=== PATIENT | female | born 1980 | race Caucasian/White ===

== ENCOUNTER 2023-04-21 08:26 | Outpatient (OUT) | payer BC, SELFPAY ==
[2023-04-21 08:47] LABS: Basophils Absolute Auto 0.1 10^3/uL (0.0-0.1); Basophils Percent Auto 0.9 % (0.2-2.0); Eosinophils Absolute Auto 0.2 10^3/uL (0.0-0.7); Eosinophils Percent Auto 2.9 % (0.9-7.0); Hematocrit 35.5 % (36.0-48.0); Immature Granulocytes Abs Auto 0.03 10^3/uL (0.00-0.03); Immature Granulocytes Pct Auto 0.4 % (0.0-0.5); Lymphocytes Absolute Auto 2.1 10^3/uL (1.2-3.8); Lymphocytes Percent Auto 29.6 % (20.5-60.0); Mean Corpuscular Hemoglobin 24.5 pg (26.7-34.0); Mean Corpuscular Volume 79.1 fL (81.0-99.0); Mean Platelet Volume 10.2 fL (9.5-13.5); Monocytes Absolute Auto 0.5 10^3/uL (0.3-0.8); Monocytes Percent Auto 7.7 % (1.7-12.0); Neutrophils Absolute Auto 4.1 10^3/uL (1.4-6.5); Neutrophils Percent Auto 58.5 % (43.0-75.0); Platelet Count 310 10^3/uL (150-450); Red Blood Count 4.49 10^6/uL (4.20-5.40); Red Cell Distribution Width 16.4 % (11.0-15.0); White Blood Count 6.9 10^3/uL (4.0-11.0)
[2023-04-21 09:32] LABS: Estimated Average Glucose 111 mg/dL; Glycohemoglobin A1C 5.5 % (4.5-6.2)
[2023-04-21 09:42] LABS: Alanine Aminotransferase 25 U/L (14-59); Albumin Globulin Ratio 1.1; Albumin Level 3.5 g/dL (3.4-5.0); Alkaline Phosphatase 75 U/L (46-116); Anion Gap 11.5; Aspartate Amino Transferase 22 U/L (15-37); Bilirubin Total 0.4 mg/dL (0.2-1.0); Calcium 8.6 mg/dL (8.5-10.1); Carbon Dioxide 27.9 mmol/L (21.0-32.0); Chloride 103 mmol/L (98-107); Cholesterol 238 mg/dL (<=200); Estimated GFR (African America >60 (>=60); Estimated GFR (Non-African Ame >60 (>=60); Globulin 3.3 g/dL; Glucose 94 mg/dL (74-106); HDL Cholesterol 60 mg/dL (40-60); Potassium 4.4 mmol/L (3.5-5.1); Sodium 138 mmol/L (136-145); Thyroid Stimulating Hormone 2.476 uIU/mL (0.358-3.740); Total Protein 6.8 g/dL (6.4-8.2); Triglycerides 110 mg/dL (<=150)
== END 2023-04-21 08:27 | disposition home or self-care (01) ==
LOC: LAB 08:31
PROVIDERS: PCP Family Medicine; Visit Provider Physician Assistant
DX: Z30.42 Encounter for surveillance of injectable contraceptive (principal)
CPT/HCPCS: 36415; 80053; 80061; 83036; 84443; 85025

== ENCOUNTER 2023-10-11 09:51 | Outpatient (OUT) | payer BC, SELFPAY ==
--- NOTE | 2023-10-11 09:56 | MM_ITS ---
Patient Name: YULI DAVIS MR#: [id number] : 1980 Exam Date: 10/11/2023 Ordering Doctor: DR Rick Deng . RADIOLOGY REPORT PROCEDURE: MM TOMOSYNTHESIS SCREENING BI COMPARISON: MG MAMM SCREEN 3D CHASIDY CAD, 09/21/2022. INDICATIONS: Screening Calculator Name NCI Breast Cancer Risk Assessment Tool 5 Year Breast Cancer Risk 0.90% Lifetime Breast Cancer Risk 11.70% Personal Breast Cancer No Personal Ovarian Cancer No Treatments None Family Cancers None LOCATION: [facility] BREAST COMPOSITION: Scattered areas fibroglandular density. FINDINGS: DIAGNOSTIC CATEGORY 0--INCOMPLETE: NEED ADDITIONAL IMAGING EVALUATION. Scattered benign-appearing nodules are present. Scattered benign-appearing calcifications are present. Scattered benign-appearing lymph nodes are present. RIGHT BREAST: New angular partially circumscribed 1.1 x 1.7 x 1.8 cm nodule identified in the 6 o'clock mid to posterior right breast. Spot imaging and ultrasound follow-up is recommended for further evaluation. LEFT BREAST: No significant suspicious finding. RECOMMENDATIONS: ADDITIONAL MAMMOGRAPHIC VIEWS REQUIRED: RIGHT BREAST - spot compression ULTRASOUND: RIGHT BREAST PLEASE NOTE: A NORMAL MAMMOGRAM DOES NOT EXCLUDE THE POSSIBILITY OF BREAST CANCER. A CLINICALLY SUSPICIOUS PALPABLE LUMP SHOULD BE BIOPSIED. Dictated by: Avila Vieyra MD on 10/11/2023 at 12:33 Approved by: Avila Vieyra MD on 10/11/2023 at 13:47
--- OUTSIDE RECORDS SUMMARY | 2023-10-11 10:02 | XMS_ITS | CCD ---
Author Organization [facility] Care Team Providers Care Plant Quality Manager Name Role Phone JAIRO ., DR CHAMPAGNE Admitting Unavailable JAIRO ., DR CHAMPAGNE Consulting Unavailable AJIRO ., DR CHAMPAGNE Attending Unavailable VALENTIN, DR GIBSON Primary Care Unavailable AMINA, DR GUERRERO Anaya Consulting Unavailable JAIRO ., DR CHAMPAGNE Admitting Unavailable JAIRO ., DR CHAMPAGNE Consulting Unavailable JAIRO ., DR CHAMPAGNE Attending Unavailable VALENTIN, DR GIBSON Primary Care Unavailable LEYLA FELDER Attending Unavailab le Problems Problem Classification Problem Date Documented Da te Episodic/Chronic Other screening for suspected conditions (not mental disorders or infectious disease) (9 sources) Encounter for screening for malignant neoplasm of cervix; Translations: [Encounter for screening mammogram for malignant neoplasm of breast] Onset: 09-21-2022 Episodic Results Test Name Value Interpretation Reference Range Facility PAP ACOG PANEL 2: 30 to 65on 09-28-2022 . . Normal [facility] Comment on above: Result Comment: Perf ormed at: WB Performed By: #### [id number] #### [facility] [address] [address] [address] Allan Flowers Age Gdln ACOG Testing 30-65 Normal [facility] Comment on above: Performed By: #### 4 [id number] #### [facility] [address] [address] [address] Allan Flowers DIAGNOSIS: Comment Normal [facility] Comment on above: Result Comment: NEGA TIVE FOR INTRAEPITHELIAL LESION OR MALIGNANCY. Performed at: WB Performed By: #### [id number] #### [facility] [address] [address] [address] Allan Flowers HPV Aptima Negative Normal Negative [facility] Comment on above: Result Comment: This nucleic acid amplification test detects fourteen high-risk HPV types (16,18,31,33,35,39,45,51,52,56,58,59,66,68) without differentiation. Performed at: =G Performed By: #### 4 [id number] #### [facility] [address] [place] [address] Dr. Allan Flowers HPV Genotype Reflex Comment Normal [facility] Comment on above: Result Comment: Crit eria not met, HPV Genotype not performed. Performed at: WB Performed By: #### [id number] #### [facility] [address] [place] [address] Dr. Allan Flowers Methodology: Comment Normal [facility] Comment on above: Result Comment: This liquid based ThinPrep(R) pap test was screened with the use of an image guided system. Performed at: WB Performed By: #### [id number] #### [facility] [address] [place] [address] Dr. Allan Flowers Note: Comment Normal [facility] Comment on above: Result Comment: The Pap smear is a screening test designed to aid in the detection of premalignant and malignant conditions of the uterine cervix. It is not a diagnostic procedure and should not be used as the sole means of detecting cervical cancer. Both false-positive and false-negative reports do occur. . Performed at: WB Performed By: #### [id number] #### [facility] [address] [place] [address] Dr. Allan Flowers Performed by: Comment Normal [facility] Comment on above: Result Comment: Jacqueline Hartman, Supervisory Medical Secretary Receptionist (ASCP) Performed at: WB Performed By: #### [id number] #### [facility] [address] [place] [address] Dr. Allan Flowers Specimen adequacy: Comment Normal [facility] Comment on above: Result Comment: Sati sfactory for evaluation. No endocervical component is identified. Performed at: WB Performed By: #### 4 [id number] #### [facility] [address] [place] [address] Dr. Allan Flowers MAMM SCREEN 3D CHASIDY CADon 09-21-2022 MG MAMM SCREEN 3D CHASIDY CAD Patient: YULI DAVIS Exam Date: 09/21/2022 : 1980 Gender:F Ordering : DR MAHI GILL . Admission #: [id number] Family : Order #: [id number] CLICK HERE TO VIEW EXAM RADIOLOGY REPORT PROCEDURE: MAMMOGRAM SCREENING 3D BILATERAL CAD COMPARISON: MG MAMM SCREEN 3D CHASIDY CAD, 10/29/2020. INDICATIONS: Screening mammography Calculator Name NCI Breast Cancer Risk Assessment Tool 5 Year Breast Cancer Risk 0.90% Lifetime Breast Cancer Risk 11.80% Personal Breast Cancer No Personal Ovarian Cancer No Treatments None Family Cancers None LOCATION: [facility] BREAST COMPOSITION: Scattered areas fibroglandular density. FINDINGS: DIAGNOSTIC CATEGORY 2--BENIGN FINDING: RIGHT BREAST: No significant suspicious finding. No significant change has occurred. LEFT BREAST: No significant suspicious finding. No significant change has occurred. RECOMMENDATIONS: ROUTINE MAMMOGRAM AND CLINICAL EVALUATION IN 12 MONTHS. PLEASE NOTE: A NORMAL MAMMOGRAM DOES NOT EXCLUDE THE POSSIBILITY OF BREAST CANCER. A CLINICALLY SUSPICIOUS PALPABLE LUMP SHOULD BE BIOPSIED. Dictated by: Guerrero Wasserman M.D. on 09/22/2022 at 08:27 Approved by: Guerrero Wasserman M.D. on 09/22/2022 at 08:33 Normal [facility] Complete Blood Count with Au to Diffon 12-02-2021 Basophils (Bld) [#/Vol] 0.06 10*3/uL Normal 0.00-0.20 [facility] [employer] Comment on above: Performed By: #### V ITD, TSH reflex FT4, CBCAD, LIPD, CMP #### [facility] [address], [place] [id number] Basophils/100 WBC (Bld) 0.8 % Normal [facility] [employer] Comment on above: Performed By: #### V ITD, TSH reflex FT4, CBCAD, LIPD, CMP #### [facility] [address] [place], [place] [id number] Eosinophils (Bld) [#/Vol] 0.31 10*3/uL Normal 0.02-0.50 [facility] [employer] Comment on above: Performed By: #### V ITD, TSH reflex FT4, CBCAD, LIPD, CMP #### [facility] [address] [place] [address], [place] [id number] Eosinophils/100 WBC (Bld) 4.4 % Normal [facility] Comment on above: Performed By: #### V ITD, TSH reflex FT4, CBCAD, LIPD, CMP #### [facility] [address] [place], [place] [id number] Erythrocyte distribution width (RBC) [Ratio] 13.3 % Normal 11.0-15.0 [facility] Comment on above: Performed By: #### V ITD, TSH reflex FT4, CBCAD, LIPD, CMP #### [facility] [address] [place], [place] [id number] Hematocrit (Bld) [Volume fraction] 36.2 % Normal 35.0-47.0 [facility] Comment on above: Performed By: #### V ITD, TSH reflex FT4, CBCAD, LIPD, CMP #### [facility] [address] [place], [place] [id number] Hemoglobin (Bld) [Mass/Vol] 11.3 g/dL Low 11.6-15.5 [facility] Comment on above: Performed By: #### V ITD, TSH reflex FT4, CBCAD, LIPD, CMP #### [facility] [address] [place], [place] [id number] Lymphocytes (Bld) [#/Vol] 1.8 10*3/uL Normal 0.9-3.9 [facility] Comment on above: Performed By: #### V ITD, TSH reflex FT4, CBCAD, LIPD, CMP #### [facility] [address] [place], [place] [id number] Lymphocytes/100 WBC (Bld) 25.5 % Normal [facility] Comment on above: Performed By: #### V ITD, TSH reflex FT4, CBCAD, LIPD, CMP #### [facility] [address] [place], [place] [id number] MCH (RBC) [Entitic mass] 27.2 pg Normal 27.0-33.0 [facility] Comment on above: Performed By: #### V ITD, TSH reflex FT4, CBCAD, LIPD, CMP #### [facility] [address] [place], [place] [id number] MCHC (RBC) [Mass/Vol] 31.2 g/dL Low 32.0-36.0 [facility] Comment on above: Performed By: #### V ITD, TSH reflex FT4, CBCAD, LIPD, CMP #### [facility] [address] [place], [place] [id number] MCV (RBC) [Entitic vol] 87 fL Normal 80-100 [facility] Comment on above: Performed By: #### V ITD, TSH reflex FT4, CBCAD, LIPD, CMP #### [facility] [address] [place], [place] [id number] Monocytes (Bld) [#/Vol] 0.5 10*3/uL Normal 0.2-0.9 [facility] Comment on above: Performed By: #### V ITD, TSH reflex FT4, CBCAD, LIPD, CMP #### [facility] [address] [place], [place] [id number] Monocytes/100 WBC (Bld) 6.5 % Normal [facility] Comment on above: Performed By: #### V ITD, TSH reflex FT4, CBCAD, LIPD, CMP #### [facility] [address] [place], [place] [id number] Neutrophils (Bld) [#/Vol] 4.4 10*3/uL Normal 1.5-7.8 [facility] Comment on above: Performed By: #### V ITD, TSH reflex FT4, CBCAD, LIPD, CMP #### [facility] [address] [place], [place] [id number] Neutrophils/100 WBC (Bld) 62.4 % Normal [facility] Comment on above: Performed By: #### V ITD, TSH reflex FT4, CBCAD, LIPD, CMP #### [facility] [address] [place], [place] [id number] Platelet mean volume (Bld) [Entitic vol] 11.40 fL Normal 7.50-12.50 [facility] Comment on above: Performed By: #### V ITD, TSH reflex FT4, CBCAD, LIPD, CMP #### [facility] [address] [place], [place] [id number] Platelets (Bld) [#/Vol] 309 10*3/uL Normal 140-400 [facility] Comment on above: Performed By: #### V ITD, TSH reflex FT4, CBCAD, LIPD, CMP #### [facility] [address] [place], [place] [id number] RBC (Bld) [#/Vol] 4.16 10*6/uL Normal 3.90-5.20 [facility] Comment on above: Performed By: #### V ITD, TSH reflex FT4, CBCAD, LIPD, CMP #### [facility] [address] [place], [place] [id number] RDW-SD 42.5 fL Normal 37.0-50.0 [facility] Comment on above: Performed By: #### V ITD, TSH reflex FT4, CBCAD, LIPD, CMP #### [facility] [address] [place], [place] [id number] WBC (Bld) [#/Vol] 7.1 10*3/uL Normal 3.8-11.0 [facility] Comment on above: Performed By: #### V ITD, TSH reflex FT4, CBCAD, LIPD, CMP #### [facility] [address] [place], [place] [id number] Comprehensive Metabolic Pane [facility] 12-02-2021 Albumin [Mass/Vol] 4.5 g/dL Normal 3.6-5.1 [facility] Comment on above: Performed By: #### V ITD, TSH reflex FT4, CBCAD, LIPD, CMP #### [facility] [address] [place], [place] [id number] Albumin/Globulin [Mass ratio] 2.1 {ratio} Normal 1.0-2.5 [facility] Comment on above: Performed By: #### V ITD, TSH reflex FT4, CBCAD, LIPD, CMP #### [facility] [address] [place], [place] [id number] ALP [Catalytic activity/Vol] 70 U/L Normal 35-119 [facility] Comment on above: Performed By: #### V ITD, TSH reflex FT4, CBCAD, LIPD, CMP #### [facility] [address] [place], [place] [id number] ALT [Catalytic activity/Vol] 15 U/L Normal 6-[address] [facility] Comment on above: Result Comment: 06/03 Female reference range changed. Performed By: #### V ITD, TSH reflex FT4, CBCAD, LIPD, CMP #### [facility] [address] [place], [place] [id number] Anion gap [Moles/Vol] 17 mmol/L Normal 12-[address] [facility] Comment on above: Result Comment: Effe ctive 07/09/2019 reference range changed. Performed By: #### V ITD, TSH reflex FT4, CBCAD, LIPD, CMP #### [facility] [address] [place], [place] [id number] AST [Catalytic activity/Vol] 18 U/L Normal 9-[address] [facility] Comment on above: Performed By: #### V ITD, TSH reflex FT4, CBCAD, LIPD, CMP #### [facility] [address] [place], [place] [id number] BUN/CREA 21 Ratio Normal 6-[address] [facility] Comment on above: Performed By: #### V ITD, TSH reflex FT4, CBCAD, LIPD, CMP #### [facility] [address] [place], [place] [id number] Calcium [Mass/Vol] 9.7 mg/dL Normal 8.6-10.2 [facility] Comment on above: Performed By: #### V ITD, TSH reflex FT4, CBCAD, LIPD, CMP #### [facility] [address] [place], [place] [id number] Chloride [Moles/Vol] 102 mmol/L Normal 98-[address] [facility] Comment on above: Performed By: #### V ITD, TSH reflex FT4, CBCAD, LIPD, CMP #### [facility] [address] [facility] [place] [id number] CO2 [Moles/Vol] 23 mmol/L Normal 20-31 [facility] Comment on above: Performed By: #### V ITD, TSH reflex FT4, CBCAD, LIPD, CMP #### [facility] [address] [place], [place] [id number] Creatinine [Mass/Vol] 0.9 mg/dL Normal 0.6-1.4 [facility] [employer] Comment on above: Performed By: #### V ITD, TSH reflex FT4, CBCAD, LIPD, CMP #### [facility] [address] [place], [place] [id number] eGFRAA 81 mL/min/1.73m2 Normal >60 [facility] [employer] Comment on above: Performed By: #### V ITD, TSH reflex FT4, CBCAD, LIPD, CMP #### [facility] [address] [place], [place] [id number] eGFRNAA 67 mL/min/1.73m2 Normal >60 [facility] [employer] Comment on above: Performed By: #### V ITD, TSH reflex FT4, CBCAD, LIPD, CMP #### [facility] [address] [place], [place] [id number] Globulin (S) [Mass/Vol] 2.1 g/dL Normal 1.9-3.7 [facility] [employer] Comment on above: Performed By: #### V ITD, TSH reflex FT4, CBCAD, LIPD, CMP #### [facility] [address] [place], [place] [id number] Glucose [Mass/Vol] 109 mg/dL High 65-99 [facility] [employer] Comment on above: Result Comment: For FASTING Glucose --- ADA reference ranges: Normal 65-99 mg/dl Prediabetes 100-125 Diabetes >/= 126 Performed By: #### V ITD, TSH reflex FT4, CBCAD, LIPD, CMP #### [facility] [address] [place], [place] [id number] Potassium [Moles/Vol] 4.0 mmol/L Normal 3.5-5.5 [facility] [employer] Comment on above: Performed By: #### V ITD, TSH reflex FT4, CBCAD, LIPD, CMP #### [facility] [address] [place], [place] [id number] Protein [Mass/Vol] 6.6 g/dL Normal 6.1-8.1 [facility] [employer] Comment on above: Performed By: #### V ITD, TSH reflex FT4, CBCAD, LIPD, CMP #### [facility] [address] [place], [place] [id number] Sodium [Moles/Vol] 139 mmol/L Normal 135-146 [place] [employer] Comment on above: Performed By: #### V ITD, TSH reflex FT4, CBCAD, LIPD, CMP #### [facility] [address] [place], [place] [id number] TBIL <0.3 Normal [facility] [employer] Comment on above: Performed By: #### V ITD, TSH reflex FT4, CBCAD, LIPD, CMP #### [facility] [address] [place], [place] [id number] Urea nitrogen [Mass/Vol] 19 mg/dL Normal 7-25 [facility] [employer] Comment on above: Performed By: #### V ITD, TSH reflex FT4, CBCAD, LIPD, CMP #### [facility] [address] [place], [place] [id number] Lipid Panelon 12-02-2021 Cholesterol [Mass/Vol] 223 mg/dL High 125-200 [facility] [employer] Comment on above: Result Comment: Low risk < 200mg/dL Borderline risk 201-239 mg/dl High risk > or equal to 240 Performed By: #### V ITD, TSH reflex FT4, CBCAD, LIPD, CMP #### [facility] [address] [place], [place] [id number] Cholesterol in HDL [Mass/Vol] 61 mg/dL Normal >40 [facility] [employer] Comment on above: Result Comment: High Cardiovascular Risk HDL <40 mg/dL Low Cardiovascular Risk HDL > or equal to 60 mg/dl Performed By: #### V ITD, TSH reflex FT4, CBCAD, LIPD, CMP #### [facility] [address] [place], [place] [id number] Cholesterol in LDL [Mass/Vol] 128 mg/dL Normal [facility] [employer] Comment on above: Result Comment: LDL ATP III CLASSIFICATION LDL less than 100 mg/dl Optimal LDL 100-129 mg/dl Near or above optimal LDL 130-159 Borderline high LDL 160-189 High LDL greater than 189 mg/dl Very High Performed By: #### V ITD, TSH reflex FT4, CBCAD, LIPD, CMP #### [facility] [address] [place], [place] [id number] Cholesterol in VLDL [Mass/Vol] 34 mg/dL Normal [facility] Comment on above: Performed By: #### V ITD, TSH reflex FT4, CBCAD, LIPD, CMP #### [facility] [address] [place], [place] [id number] Cholesterol.total/C holesterol in HDL [Mass ratio] 4 {ratio} Normal [facility] Comment on above: Performed By: #### V ITD, TSH reflex FT4, CBCAD, LIPD, CMP #### [facility] [address] [place], [place] [id number] Triglyceride [Mass/Vol] 171 mg/dL High 30-150 [facility] Comment on above: Result Comment: TRIG ATPIII CLASSIFICATIONS TRIG less than 150 mg/dl Normal TRIG 150-199 mg/dl Borderline High TRIG 200-500 mg/dl High TRIG greather than 500 mg/dl Very High Performed By: #### V ITD, TSH reflex FT4, CBCAD, LIPD, CMP #### [facility] [address] [place], [place] [id number] TSH w/ Reflex to Free T4on 0 12-02-2021 TSH 2.760 uIU/mL Normal 0.400-4.500 [facility] [employer] Comment on above: Performed By: #### V ITD, TSH reflex FT4, CBCAD, LIPD, CMP #### [facility] [address] [place], [place] [id number] Vitamin D 25-OHon 12-02-2021 VIT D 25 OH 56 ng/ml Normal >29 [facility] [employer] Comment on above: Result Comment: Mendy min D Status Deficiency <20 ng/mL Insufficiency 20-29 ng/mL Optimal 30-100 ng/mL Possible Toxicity >=150 ng/mL Performed By: #### V ITD, TSH reflex FT4, CBCAD, LIPD, CMP #### [facility] [address] [place], [place] [id number] Encounters Encounter Date Encounter Type Care Provider Facility Start: 05-17-2023 End: 05-17-2023 ambulatory LEYLA FELDER Not Available Start: 09-21-2022 End: 09-21-[address] MAHI GILL . Facility:[facility] Start: 09-21-2022 End: 09-22-[address] MAHI GILL . Facility:[facility] Payers Date Payer Category Payer Unknown [id number] [id number] [id number] 1980 Unknown [id number] [id number] [id number] 1980 Unknown [id number] 1960 Unknown [id number] Summary Purpose Family History No Family History Records FoundNo Family History Records FoundNo Family History Records Found Advance Directives No Advanced Directives Records FoundNo Advanced Directives Records FoundNo Advanced Directives Records Found Additional Source Comments INFORMATION SOURCE (unrecogn ized section and content) DATE CREATED AUTHOR 12/03/2021 [facility] dical Specialist DATE CREATED AUTHOR AUTHOR'S ORGANIZ ATION 10/01/2022 [facility] DATE CREATED AUTHOR AUTHOR'S ORGANIZ ATION 05/19/2023 [facility] dical Specialists EPIC FOR RECORDS PERTAINING TO PATIENTS WHO ARE OR HAVE BEEN ENROLLED IN A CHEMICAL DEPENDENCY/SUBSTANCEABUSE PROGRAM, SOME INFORMATION MAY BE OMITTED. This clinical summary was aggregated from multiple sources. Caution should be exercised in using it in the provision of clinical care. This summary normalizes information from multiple sources, and as a consequence, information in this document may materially change the coding, format and clinical context of patient data. In addition, data may be omitted in some cases. CLINICAL DECISIONS SHOULD BE BASED ON THE PRIMARY CLINICAL RECORDS. [facility] [employer] provides no warranty or guarantee of the accuracy or completeness of information in this document.
== END 2023-10-11 09:52 | disposition home or self-care (01) ==
LOC: MAMMO 09:52
PROVIDERS: PCP Family Medicine; Visit Provider Obstetrics & Gynecology
DX: Z12.31 Encounter for screening mammogram for malignant neoplasm of breast (principal); N63.15 Unspecified lump in the right breast, overlapping quadrants
CPT/HCPCS: 77063; 77067

== ENCOUNTER 2023-10-26 12:53 | Outpatient (OUT) | payer BC, SELFPAY ==
--- NOTE | 2023-10-26 12:57 | MM_ITS ---
Patient Name: YULI DAVIS MR#: [id number] : 1980 Exam Date: 10/26/2023 Ordering Doctor: DR Rick Deng . RADIOLOGY REPORT PROCEDURE: MM DIAGNOSTIC MAMMO UNILAT RT, 10/26/2023, 12:00 US BREAST RT LIMITED, 10/26/2023, 13:11 COMPARISON: MM TOMOSYNTHESIS SCREENING BI, 10/11/2023. MG MAMM SCREEN 3D CHASIDY CAD, 09/21/2022. MG MAMM SCREEN 3D CHASIDY CAD, 10/29/2020. INDICATIONS: Follow Up Abnormal Mammogram R92.8 Calculator Name NCI Breast Cancer Risk Assessment Tool 5 Year Breast Cancer Risk 0.90% Lifetime Breast Cancer Risk 11.70% Personal Breast Cancer No Personal Ovarian Cancer No Treatments None Family Cancers None LOCATION: [facility] BREAST COMPOSITION: There are scattered areas of fibroglandular density. FINDINGS: DIAGNOSTIC CATEGORY 4--SUSPICIOUS FOR MALIGNANCY. FINDING DOES NOT EXHIBIT CLASSIC FINDINGS OF BREAST CANCER: RIGHT BREAST: Spot magnification views demonstrate persistence of a 1.1 cm mass within the lower central breast approximately 6 o'clock. Ultrasound evaluation demonstrates a geographic shaped 1.6 x 0.6 x 0.6 cm hypoechoic structure with irregular lemus; complex cyst versus mass. Given its appearance on ultrasound and new appearance on mammography ultrasound-guided tissue sampling is recommended. RECOMMENDATIONS: ULTRASOUND-GUIDED CORE BIOPSY: RIGHT BREAST PLEASE NOTE: A NORMAL MAMMOGRAM DOES NOT EXCLUDE THE POSSIBILITY OF BREAST CANCER. A CLINICALLY SUSPICIOUS PALPABLE LUMP SHOULD BE BIOPSIED. Dictated by: Damian Wasserman M.D. on 10/26/2023 at 13:32 Approved by: Damian Wasserman M.D. on 10/26/2023 at 13:39
--- OUTSIDE RECORDS SUMMARY | 2023-10-26 13:19 | XMS_ITS | CCD ---
Author Organization [facility] Care Team Providers Care Mobile Equipment Mechanic Name Role Phone JAIRO ., DR CHAMPAGNE [...] 29 to 64on 09-28-2022 . . Normal [facility] Comment on above: Result Comment: Perf ormed at: WB Performed By: #### [id number] #### [facility] [address] [address] [address] Allan Flowers Age Gdln ACOG Testing 30-65 Normal [facility] Comment on above: Performed By: #### [id number] #### [facility] [address] [address] [address] Allan Flowers DIAGNOSIS: Comment Normal [facility] Comment on above: Result Comment: NEGA TIVE FOR INTRAEPITHELIAL LESION OR MALIGNANCY. Performed at: WB Performed By: #### [id number] #### [facility] [address] [address] [address] Allan Flowers HPV Aptima Negative Normal Negative [facility] Comment on above: Result Comment: This nucleic acid amplification test detects fourteen high-risk HPV types (16,18,31,33,35,39,45,51,52,56,58,59,66,68) without differentiation. Performed at: =G Performed By: #### [id number] #### [facility] [address] [place] [address] Dr. Allan Flowers HPV Genotype Reflex Comment Normal [facility] Comment on above: Result Comment: Crit eria not met, HPV Genotype not performed. Performed at: WB Performed By: #### [id number] #### [facility] [address] [place] [address] Dr. Allan Flowers Methodology: Comment Normal [facility] Comment on above: Result Comment: This liquid based ThinPrep(R) pap test was screened with the use of an image guided system. Performed at: WB Performed By: #### [id number] #### [facility] [address] [place] [address] Dr. Allan Flowers Note: Comment Normal [facility] Comment on above: Result Comment: The Pap smear is a screening test designed to aid in the detection of premalignant and malignant conditions of the uterine cervix. It is not a diagnostic procedure and should not be used as the sole means of detecting cervical cancer. Both false-positive and false-negative reports do occur. . Performed at: WB Performed By: #### [id number] #### [facility] [address] [place] [address] Dr. Allan Flowers Performed by: Comment Normal [facility] Comment on above: Result Comment: Jacqueline Hartman, Supervisory Office Services Associate (ASCP) Performed at: WB Performed By: #### [id number] #### [facility] [address] [place] [address] Dr. Allan Flowers Specimen adequacy: Comment Normal [facility] Comment on above: Result Comment: Sati sfactory for evaluation. No endocervical component is identified. Performed at: WB Performed By: #### [id number] #### [facility] [address] [place] [address] Dr. Allan Flowers MAMM SCREEN 3D CHASIDY CADon 09-21-2022 MG MAMM SCREEN 3D CHASIDY CAD Patient: YULI DAVIS Exam Date: 09/21/2022 : 1980 Gender:F Ordering : DR MAHI GILL . Admission #: [id number] Family : Order #: [id number] CLICK HERE TO VIEW EXAM RADIOLOGY REPORT PROCEDURE: MAMMOGRAM SCREENING 3D BILATERAL CAD COMPARISON: MG MAMM SCREEN 3D CHASIDY CAD, 10/29/2020. INDICATIONS: Screening mammography Calculator Name NCI Breast Cancer Risk Assessment Tool 5 Year Breast Cancer Risk 0.90% Lifetime Breast Cancer Risk 11.80% Personal Breast Cancer No Personal Ovarian Cancer No Treatments None Family Cancers None LOCATION: [facility] BREAST COMPOSITION: Scattered areas fibroglandular density. FINDINGS: [...] M.D. on 09/22/2022 at 08:33 Normal [facility] Complete Blood Count with Au to Diffon 12-02-2021 Basophils (Bld) [#/Vol] 0.06 10*3/uL Normal 0.00-0.20 [facility] Associate Professor [employer] Comment on above: Performed By: #### V ITD, TSH reflex FT4, CBCAD, LIPD, CMP #### [facility] [address], [place] [id number] Basophils/100 WBC (Bld) 0.8 % Normal [facility] Associate Professor [employer] Art Comment on above: Performed By: #### V ITD, TSH reflex FT4, CBCAD, LIPD, CMP #### [facility] [address], [place] [id number] Eosinophils (Bld) [#/Vol] 0.31 10*3/uL Normal 0.02-0.50 [facility] Associate Professor [employer] Art Comment on above: Performed By: #### V ITD, TSH reflex FT4, CBCAD, LIPD, CMP #### [facility] [address], [place] [id number] Eosinophils/100 WBC (Bld) 4.4 % Normal [facility] Comment on above: Performed By: #### V ITD, TSH reflex FT4, CBCAD, LIPD, CMP #### [facility] [address], [place] [id number] Erythrocyte distribution width (RBC) [Ratio] 13.3 % Normal 11.0-15.0 [facility] Comment on above: Performed By: #### V ITD, TSH reflex FT4, CBCAD, LIPD, CMP #### [facility] [address], [place] [id number] Hematocrit (Bld) [Volume fraction] 36.2 % Normal 35.0-47.0 [facility] Comment on above: Performed By: #### V ITD, TSH reflex FT4, CBCAD, LIPD, CMP #### [facility] [address], [place] [id number] Hemoglobin (Bld) [Mass/Vol] 11.3 g/dL Low 11.6-15.5 [facility] Comment on above: Performed By: #### V ITD, TSH reflex FT4, CBCAD, LIPD, CMP #### [facility] [address], [place] [id number] Lymphocytes (Bld) [#/Vol] 1.8 10*3/uL Normal 0.9-3.9 [facility] Comment on above: Performed By: #### V ITD, TSH reflex FT4, CBCAD, LIPD, CMP #### [facility] [address], [place] [id number] Lymphocytes/100 WBC (Bld) 25.5 % Normal [facility] Comment on above: Performed By: #### V ITD, TSH reflex FT4, CBCAD, LIPD, CMP #### [facility] [address], [place] [id number] MCH (RBC) [Entitic mass] 27.2 pg Normal 27.0-33.0 [facility] Comment on above: Performed By: #### V ITD, TSH reflex FT4, CBCAD, LIPD, CMP #### [facility] [address], [place] [id number] MCHC (RBC) [Mass/Vol] 31.2 g/dL Low 32.0-36.0 [facility] Comment on above: Performed By: #### V ITD, TSH reflex FT4, CBCAD, LIPD, CMP #### [facility] [address], [place] [id number] MCV (RBC) [Entitic vol] 87 fL Normal 80-100 [facility] Comment on above: Performed By: #### V ITD, TSH reflex FT4, CBCAD, LIPD, CMP #### [facility] [address], [place] [id number] Monocytes (Bld) [#/Vol] 0.5 10*3/uL Normal 0.2-0.9 [facility] Comment on above: Performed By: #### V ITD, TSH reflex FT4, CBCAD, LIPD, CMP #### [facility] [address], [place] [id number] Monocytes/100 WBC (Bld) 6.5 % Normal [facility] Comment on above: Performed By: #### V ITD, TSH reflex FT4, CBCAD, LIPD, CMP #### [facility] [address], [place] [id number] Neutrophils (Bld) [#/Vol] 4.4 10*3/uL Normal 1.5-7.8 [facility] Comment on above: Performed By: #### V ITD, TSH reflex FT4, CBCAD, LIPD, CMP #### [facility] [address], [place] [id number] Neutrophils/100 WBC (Bld) 62.4 % Normal [facility] Comment on above: Performed By: #### V ITD, TSH reflex FT4, CBCAD, LIPD, CMP #### [facility] [address], [place] [id number] Platelet mean volume (Bld) [Entitic vol] 11.40 fL Normal 7.50-12.50 [facility] Comment on above: Performed By: #### V ITD, TSH reflex FT4, CBCAD, LIPD, CMP #### [facility] [address], [place] [id number] Platelets (Bld) [#/Vol] 309 10*3/uL Normal 140-400 [facility] Comment on above: Performed By: #### V ITD, TSH reflex FT4, CBCAD, LIPD, CMP #### [facility] [address], [place] [id number] RBC (Bld) [#/Vol] 4.16 10*6/uL Normal 3.90-5.20 [facility] Comment on above: Performed By: #### V ITD, TSH reflex FT4, CBCAD, LIPD, CMP #### [facility] [address], [place] [id number] RDW-SD 42.5 fL Normal 37.0-50.0 [facility] Comment on above: Performed By: #### V ITD, TSH reflex FT4, CBCAD, LIPD, CMP #### [facility] [address], [place] [id number] WBC (Bld) [#/Vol] 7.1 10*3/uL Normal 3.8-11.0 [facility] Comment on above: Performed By: #### V ITD, TSH reflex FT4, CBCAD, LIPD, CMP #### [facility] [address], [place] [id number] Comprehensive Metabolic Pane [facility] 12-02-2021 Albumin [Mass/Vol] 4.5 g/dL Normal 3.6-5.1 [facility] Comment on above: Performed By: #### V ITD, TSH reflex FT4, CBCAD, LIPD, CMP #### [facility] [address], [place] [id number] Albumin/Globulin [Mass ratio] 2.1 {ratio} Normal 1.0-2.5 [facility] Comment on above: Performed By: #### V ITD, TSH reflex FT4, CBCAD, LIPD, CMP #### [facility] [address], [place] [id number] ALP [Catalytic activity/Vol] 70 U/L Normal 35-119 [facility] Comment on above: Performed By: #### V ITD, TSH reflex FT4, CBCAD, LIPD, CMP #### [facility] [address], [place] [id number] ALT [Catalytic activity/Vol] 15 U/L Normal 6-33 [facility] Comment on above: Result Comment: 06/03 Female reference range changed. Performed By: #### V ITD, TSH reflex FT4, CBCAD, LIPD, CMP #### [facility] [address], [place] [id number] Anion gap [Moles/Vol] 17 mmol/L Normal 12-20 [facility] Comment on above: Result Comment: Effe ctive 07/09/2019 reference range changed. Performed By: #### V ITD, TSH reflex FT4, CBCAD, LIPD, CMP #### [facility] [address], [place] [id number] AST [Catalytic activity/Vol] 18 U/L Normal 9-34 [facility] Comment on above: Performed By: #### V ITD, TSH reflex FT4, CBCAD, LIPD, CMP #### [facility] [address], [place] [id number] BUN/CREA 21 Ratio Normal 6-22 [facility] Comment on above: Performed By: #### V ITD, TSH reflex FT4, CBCAD, LIPD, CMP #### [facility] [address], [place] [id number] Calcium [Mass/Vol] 9.7 mg/dL Normal 8.6-10.2 [facility] Comment on above: Performed By: #### V ITD, TSH reflex FT4, CBCAD, LIPD, CMP #### [facility] [address], [place] [id number] Chloride [Moles/Vol] 102 mmol/L Normal 98-107 [facility] Comment on above: Performed By: #### V ITD, TSH reflex FT4, CBCAD, LIPD, CMP #### [facility] [address] [facility] [place] [id number] CO2 [Moles/Vol] 23 mmol/L Normal 20-31 [facility] Comment on above: Performed By: #### V ITD, TSH reflex FT4, CBCAD, LIPD, CMP #### [facility] [address], [place] [id number] Creatinine [Mass/Vol] 0.9 mg/dL Normal 0.6-1.4 [facility] Associate Professor Of Art Comment on above: Performed By: #### V ITD, TSH reflex FT4, CBCAD, LIPD, CMP #### [facility] [address], [place] [id number] eGFRAA 81 mL/min/1.73m2 Normal >60 [facility] Associate Professor Of Art Comment on above: Performed By: #### V ITD, TSH reflex FT4, CBCAD, LIPD, CMP #### [facility] [address], [place] [id number] eGFRNAA 67 mL/min/1.73m2 Normal >60 [facility] Associate Professor Of Art Comment on above: Performed By: #### V ITD, TSH reflex FT4, CBCAD, LIPD, CMP #### [facility] [address], [place] [id number] Globulin (S) [Mass/Vol] 2.1 g/dL Normal 1.9-3.7 [facility] Associate Professor Of Art Comment on above: Performed By: #### V ITD, TSH reflex FT4, CBCAD, LIPD, CMP #### [facility] [address], [place] [id number] Glucose [Mass/Vol] 109 mg/dL High 65-99 [facility] Associate Professor Of Art Comment on above: Result Comment: For FASTING Glucose --- ADA reference ranges: Normal 65-99 mg/dl Prediabetes 100-125 Diabetes >/= 126 Performed By: #### V ITD, TSH reflex FT4, CBCAD, LIPD, CMP #### [facility] [address], [place] [id number] Potassium [Moles/Vol] 4.0 mmol/L Normal 3.5-5.5 [facility] Associate Professor Of Art Comment on above: Performed By: #### V ITD, TSH reflex FT4, CBCAD, LIPD, CMP #### [facility] [address], [place] [id number] Protein [Mass/Vol] 6.6 g/dL Normal 6.1-8.1 [facility] Associate Professor Of Art Comment on above: Performed By: #### V ITD, TSH reflex FT4, CBCAD, LIPD, CMP #### [facility] [address], [place] [id number] Sodium [Moles/Vol] 139 mmol/L Normal 135-146 [place] Associate Professor Of Art Comment on above: Performed By: #### V ITD, TSH reflex FT4, CBCAD, LIPD, CMP #### [facility] [address], [place] [id number] TBIL <0.3 Normal [facility] Associate Professor Of Art Comment on above: Performed By: #### V ITD, TSH reflex FT4, CBCAD, LIPD, CMP #### [facility] [address], [place] [id number] Urea nitrogen [Mass/Vol] 19 mg/dL Normal 7-25 [facility] Associate Professor Of Art Comment on above: Performed By: #### V ITD, TSH reflex FT4, CBCAD, LIPD, CMP #### [facility] [address], [place] [id number] Lipid Panelon 12-02-2021 Cholesterol [Mass/Vol] 223 mg/dL High 125-200 [facility] Associate Professor Of Art Comment on above: Result Comment: Low risk < 200mg/dL Borderline risk 201-239 mg/dl High risk > or equal to 240 Performed By: #### V ITD, TSH reflex FT4, CBCAD, LIPD, CMP #### [facility] [address], [place] [id number] Cholesterol in HDL [Mass/Vol] 61 mg/dL Normal >40 [facility] Associate Professor Of Art Comment on above: Result Comment: High Cardiovascular Risk HDL <40 mg/dL Low Cardiovascular Risk HDL > or equal to 60 mg/dl Performed By: #### V ITD, TSH reflex FT4, CBCAD, LIPD, CMP #### [facility] [address], [place] [id number] Cholesterol in LDL [Mass/Vol] 128 mg/dL Normal [facility] Associate Professor Of Art Comment on above: Result Comment: LDL ATP III CLASSIFICATION LDL less than 100 mg/dl Optimal LDL 100-129 mg/dl Near or above optimal LDL 130-159 Borderline high LDL 160-189 High LDL greater than 189 mg/dl Very High Performed By: #### V ITD, TSH reflex FT4, CBCAD, LIPD, CMP #### [facility] [address], [place] [id number] Cholesterol in VLDL [Mass/Vol] 34 mg/dL Normal [facility] Comment on above: Performed By: #### V ITD, TSH reflex FT4, CBCAD, LIPD, CMP #### [facility] [address], [place] [id number] Cholesterol.total/C holesterol in HDL [Mass ratio] 4 {ratio} Normal [facility] Comment on above: Performed By: #### V ITD, TSH reflex FT4, CBCAD, LIPD, CMP #### [facility] [address], [place] [id number] Triglyceride [Mass/Vol] 171 mg/dL High 30-150 [facility] Comment on above: Result Comment: TRIG ATPIII CLASSIFICATIONS TRIG less than 150 mg/dl Normal TRIG 150-199 mg/dl Borderline High TRIG 200-500 mg/dl High TRIG greather than 500 mg/dl Very High Performed By: #### V ITD, TSH reflex FT4, CBCAD, LIPD, CMP #### [facility] [address], [place] [id number] TSH w/ Reflex to Free T4on 0 12-02-2021 TSH 2.760 uIU/mL Normal 0.400-4.500 [facility] Associate Professor Of Art Comment on above: Performed By: #### V ITD, TSH reflex FT4, CBCAD, LIPD, CMP #### [facility] [address], [place] [id number] Vitamin D 25-OHon 12-02-2021 VIT D 25 OH 56 ng/ml Normal >29 [facility] Associate Professor Of Art Comment on above: Result Comment: Mendy min D Status Deficiency <20 ng/mL Insufficiency 20-29 ng/mL Optimal 30-100 ng/mL Possible Toxicity >=150 ng/mL Performed By: #### V ITD, TSH reflex FT4, CBCAD, LIPD, CMP #### [facility] [address], [place] [id number] Encounters Encounter Date Encounter Type Care Provider Facility Start: 05-17-2023 End: 05-17-2023 ambulatory LEYLA FELDER Not Available Start: 09-21-2022 End: 09-21-[address] MAHI GILL . Facility:[facility] Start: 09-21-2022 End: 09-22-[address] MAHI GILL . Facility:[facility] Payers Date Payer Category Payer Unknown [id number] [id number] [id number] 1980 Unknown [id number] 1980 Unknown [id number] 1960 Unknown [id number] Summary Purpose Family History No Family History Records FoundNo Family History Records FoundNo Family History Records Found Advance Directives No Advanced Directives Records FoundNo Advanced Directives Records FoundNo Advanced Directives Records Found Additional Source Comments INFORMATION SOURCE (unrecogn ized section and content) DATE CREATED AUTHOR 12/03/2021 [facility] dical Specialist DATE CREATED AUTHOR AUTHOR'S ORGANIZ ATION 10/01/2022 [facility] DATE CREATED AUTHOR AUTHOR'S ORGANIZ ATION 05/19/2023 [facility] dical Specialists EPIC FOR RECORDS PERTAINING TO [...] BE BASED ON THE PRIMARY CLINICAL RECORDS. [facility] [employer] provides no warranty or guarantee of the accuracy or completeness of information in this document.
== END 2023-10-26 12:54 | disposition home or self-care (01) ==
LOC: MAMMO 12:53
PROVIDERS: PCP Family Medicine; Visit Provider Obstetrics & Gynecology
DX: R92.8 Other abnormal and inconclusive findings on diagnostic imaging of breast (principal); N63.15 Unspecified lump in the right breast, overlapping quadrants
CPT/HCPCS: 76642; 77065

== ENCOUNTER 2023-11-04 07:21 | Day surgery (SDC) | payer BC, SELFPAY ==
--- OUTSIDE RECORDS SUMMARY | 2023-11-04 07:24 | XMS_ITS | CCD ---
Author Organization [facility] Care Team Providers Care Communication Manager Name Role Phone JAIRO ., DR [...] 30 to 64on 09-28-2022 . . Normal [facility] Comment on above: Result Comment: Perf ormed at: WB Performed By: #### [id number] #### [facility] [address] [address] [address] Allan Flowers Age Gdln ACOG Testing 30-65 Normal [facility] Comment on above: Performed By: #### [id number] #### [facility] [address] [address] [address] Allan Flowers DIAGNOSIS: Comment Normal [facility] Comment on above: Result Comment: NEGA TIVE FOR INTRAEPITHELIAL LESION OR MALIGNANCY. Performed at: WB Performed By: #### [id number] #### [facility] [address] [address] [address] Allan Flowers HPV Aptima Negative Normal Negative [facility] Comment on above: Result Comment: This nucleic acid amplification test detects fourteen high-risk HPV types (16,18,31,33,35,39,45,51,52,56,58,59,66,68) without differentiation. Performed at: =G Performed By: #### [id number] #### [facility] [address] [place] [address] Dr. Allan Flowers HPV Genotype Reflex Comment Normal [facility] Comment on above: Result Comment: Crit eria not met, HPV Genotype not performed. Performed at: WB Performed By: #### [id number] #### [facility] [address] [place] [address] Dr. Allan Flowers Methodology: Comment Normal [facility] Comment on above: Result Comment: This liquid based ThinPrep(R) pap test was screened with the use of an image guided system. Performed at: WB Performed By: #### [id number] #### [facility] [address] [place] [address] Dr. Allan Flowers Note: Comment Normal [facility] Comment on above: Result Comment: The Pap smear is a screening test designed to aid in the detection of premalignant and malignant conditions of the uterine cervix. It is not a diagnostic procedure and should not be used as the sole means of detecting cervical cancer. Both false-positive and false-negative reports do occur. . Performed at: WB Performed By: #### [id number] #### [facility] [address] [place] [address] Dr. Allan Flowers Performed by: Comment Normal [facility] Comment on above: Result Comment: Jacqueline Hartman, Supervisory Advanced Developer (ASCP) Performed at: WB Performed By: #### [id number] #### [facility] [address] [place] [address] Dr. Allan Flowers Specimen adequacy: Comment Normal [facility] Comment on above: Result Comment: Sati sfactory for evaluation. No endocervical component is identified. Performed at: WB Performed By: #### [id number] #### [facility] [address] [place] [address] Dr. Allan Flowers MAMM SCREEN 3D CHASIDY CADon 09-21-2022 MG MAMM SCREEN 3D CHASIDY CAD Patient: YULI DAVIS Exam Date: 09/21/2022 : 1980 Gender:F Ordering : DR MAHI GILL . Admission #: [id number] Family : Order #: [id number] CLICK HERE TO VIEW EXAM RADIOLOGY REPORT PROCEDURE: MAMMOGRAM SCREENING 3D BILATERAL CAD COMPARISON: MG MAMM SCREEN 3D CHASIDY CAD, 10/29/2020. INDICATIONS: Screening mammography Calculator Name NCI Breast Cancer Risk Assessment Tool 5 Year Breast Cancer Risk 0.90% Lifetime Breast Cancer Risk 11.80% Personal Breast Cancer No Personal Ovarian Cancer No Treatments None Family Cancers None LOCATION: [facility] BREAST COMPOSITION: Scattered areas fibroglandular density. [...] M.D. on 09/22/2022 at 08:33 Normal [facility] Complete Blood Count with Au to Diffon 12-02-2021 Basophils (Bld) [#/Vol] 0.06 10*3/uL Normal 0.00-0.20 [facility] Comment on above: Performed By: #### V ITD, TSH reflex FT4, CBCAD, LIPD, CMP #### [facility] [address] [place], [place] [id number] Basophils/100 WBC (Bld) 0.8 % Normal [facility] Comment on above: Performed By: #### V ITD, TSH reflex FT4, CBCAD, LIPD, CMP #### [facility] [address] [place], [place] [id number] Eosinophils (Bld) [#/Vol] 0.31 10*3/uL Normal 0.02-0.50 [facility] Comment on above: Performed By: #### V ITD, TSH reflex FT4, CBCAD, LIPD, CMP #### [facility] [address] [place], [place] [id number] Eosinophils/100 WBC (Bld) 4.4 % Normal [facility] Comment on above: Performed By: #### V ITD, TSH reflex FT4, CBCAD, LIPD, CMP #### [facility] [address] [place], [place] [id number] Erythrocyte distribution width (RBC) [Ratio] 13.3 % Normal 11.0-15.0 [facility] Comment on above: Performed By: #### V ITD, TSH reflex FT4, CBCAD, LIPD, CMP #### [facility] [address] [place], [place] [id number] Hematocrit (Bld) [Volume fraction] 36.2 % Normal 35.0-47.0 [facility] Comment on above: Performed By: #### V ITD, TSH reflex FT4, CBCAD, LIPD, CMP #### [facility] [address] [place], [place] [id number] Hemoglobin (Bld) [Mass/Vol] 11.3 g/dL Low 11.6-15.5 [facility] Special[facility] Comment on above: Performed By: #### V ITD, TSH reflex FT4, CBCAD, LIPD, CMP #### [facility] [address] [place], [place] [id number] Lymphocytes (Bld) [#/Vol] 1.8 10*3/uL Normal 0.9-3.9 [facility] Comment on above: Performed By: #### V ITD, TSH reflex FT4, CBCAD, LIPD, CMP #### [facility] [address] [place], [place] [id number] Lymphocytes/100 WBC (Bld) 25.5 % Normal [facility] Comment on above: Performed By: #### V ITD, TSH reflex FT4, CBCAD, LIPD, CMP #### [facility] [address] [place], [place] [id number] MCH (RBC) [Entitic mass] 27.2 pg Normal 27.0-33.0 [facility] Comment on above: Performed By: #### V ITD, TSH reflex FT4, CBCAD, LIPD, CMP #### [facility] [address] [place], [place] [id number] MCHC (RBC) [Mass/Vol] 31.2 g/dL Low 32.0-36.0 [facility] Comment on above: Performed By: #### V ITD, TSH reflex FT4, CBCAD, LIPD, CMP #### [facility] [address] [place], [place] [id number] MCV (RBC) [Entitic vol] 87 fL Normal 80-100 [facility] Comment on above: Performed By: #### V ITD, TSH reflex FT4, CBCAD, LIPD, CMP #### [facility] [address] [place], [place] [id number] Monocytes (Bld) [#/Vol] 0.5 10*3/uL Normal 0.2-0.9 [facility] Comment on above: Performed By: #### V ITD, TSH reflex FT4, CBCAD, LIPD, CMP #### [facility] [address] [place], [place] [id number] Monocytes/100 WBC (Bld) 6.5 % Normal [facility] Comment on above: Performed By: #### V ITD, TSH reflex FT4, CBCAD, LIPD, CMP #### [facility] [address] [place], [place] [id number] Neutrophils (Bld) [#/Vol] 4.4 10*3/uL Normal 1.5-7.8 [facility] Comment on above: Performed By: #### V ITD, TSH reflex FT4, CBCAD, LIPD, CMP #### [facility] [address] [place], [place] [id number] Neutrophils/100 WBC (Bld) 62.4 % Normal [facility] Special[facility] Comment on above: Performed By: #### V ITD, TSH reflex FT4, CBCAD, LIPD, CMP #### [facility] [address] [place], [place] [id number] Platelet mean volume (Bld) [Entitic vol] 11.40 fL Normal 7.50-12.50 [facility] Special[facility] Comment on above: Performed By: #### V ITD, TSH reflex FT4, CBCAD, LIPD, CMP #### [facility] [address] [place], [place] [id number] Platelets (Bld) [#/Vol] 309 10*3/uL Normal 140-400 [facility] Special[facility] Comment on above: Performed By: #### V ITD, TSH reflex FT4, CBCAD, LIPD, CMP #### [facility] [address] [place], [place] [id number] RBC (Bld) [#/Vol] 4.16 10*6/uL Normal 3.90-5.[address] [facility] Comment on above: Performed By: #### V ITD, TSH reflex FT4, CBCAD, LIPD, CMP #### [facility] [address] [place], [place] [id number] RDW-SD 42.5 fL Normal 37.0-50.0 [facility] Comment on above: Performed By: #### V ITD, TSH reflex FT4, CBCAD, LIPD, CMP #### [facility] [address] [place], [place] [id number] WBC (Bld) [#/Vol] 7.1 10*3/uL Normal 3.8-11.0 [facility] Comment on above: Performed By: #### V ITD, TSH reflex FT4, CBCAD, LIPD, CMP #### [facility] [address] [place], [place] [id number] Comprehensive Metabolic Pane [facility] 12-02-2021 Albumin [Mass/Vol] 4.5 g/dL Normal 3.6-5.1 [facility] Comment on above: Performed By: #### V ITD, TSH reflex FT4, CBCAD, LIPD, CMP #### [facility] [address] [place], [place] [id number] Albumin/Globulin [Mass ratio] 2.1 {ratio} Normal 1.0-2.5 [facility] Comment on above: Performed By: #### V ITD, TSH reflex FT4, CBCAD, LIPD, CMP #### [facility] [address] [place], [place] [id number] ALP [Catalytic activity/Vol] 70 U/L Normal 35-119 [facility] Special[facility] Comment on above: Performed By: #### V ITD, TSH reflex FT4, CBCAD, LIPD, CMP #### [facility] [address] [place], [place] [id number] ALT [Catalytic activity/Vol] 15 U/L Normal 6-33 [facility] Comment on above: Result Comment: 06/03 Female reference range changed. Performed By: #### V ITD, TSH reflex FT4, CBCAD, LIPD, CMP #### [facility] [address] [place], [place] [id number] Anion gap [Moles/Vol] 17 mmol/L Normal 12-20 [facility] Comment on above: Result Comment: Effe ctive 07/09/2019 reference range changed. Performed By: #### V ITD, TSH reflex FT4, CBCAD, LIPD, CMP #### [facility] [address] [place], [place] [id number] AST [Catalytic activity/Vol] 18 U/L Normal 9-34 [facility] Comment on above: Performed By: #### V ITD, TSH reflex FT4, CBCAD, LIPD, CMP #### [facility] [address] [place], [place] [id number] BUN/CREA 21 Ratio Normal 6-22 [facility] Comment on above: Performed By: #### V ITD, TSH reflex FT4, CBCAD, LIPD, CMP #### [facility] [address] [place], [place] [id number] Calcium [Mass/Vol] 9.7 mg/dL Normal 8.6-10.2 [facility] Comment on above: Performed By: #### V ITD, TSH reflex FT4, CBCAD, LIPD, CMP #### [facility] [address] [place], [place] [id number] Chloride [Moles/Vol] 102 mmol/L Normal 98-107 [facility] Comment on above: Performed By: #### V ITD, TSH reflex FT4, CBCAD, LIPD, CMP #### [facility] [address] [facility] [place] [id number] CO2 [Moles/Vol] 23 mmol/L Normal 20-31 [facility] Specialist Comment on above: Performed By: #### V ITD, TSH reflex FT4, CBCAD, LIPD, CMP #### [facility] [address] [place], [place] [id number] Creatinine [Mass/Vol] 0.9 mg/dL Normal 0.6-1.4 [facility] Comment on above: Performed By: #### V ITD, TSH reflex FT4, CBCAD, LIPD, CMP #### [facility] [address] [place], [place] [id number] eGFRAA 81 mL/min/1.73m2 Normal >60 [facility] Comment on above: Performed By: #### V ITD, TSH reflex FT4, CBCAD, LIPD, CMP #### [facility] [address] [place], [place] [id number] eGFRNAA 67 mL/min/1.73m2 Normal >60 [facility] Comment on above: Performed By: #### V ITD, TSH reflex FT4, CBCAD, LIPD, CMP #### [facility] [address] [place], [place] [id number] Globulin (S) [Mass/Vol] 2.1 g/dL Normal 1.9-3.7 [facility] Comment on above: Performed By: #### V ITD, TSH reflex FT4, CBCAD, LIPD, CMP #### [facility] [address] [place], [place] [id number] Glucose [Mass/Vol] 109 mg/dL High 65-99 [facility] Comment on above: Result Comment: For FASTING Glucose --- ADA reference ranges: Normal 65-99 mg/dl Prediabetes 100-125 Diabetes >/= 126 Performed By: #### V ITD, TSH reflex FT4, CBCAD, LIPD, CMP #### [facility] [address] [place], [place] [id number] Potassium [Moles/Vol] 4.0 mmol/L Normal 3.5-5.5 [facility] Comment on above: Performed By: #### V ITD, TSH reflex FT4, CBCAD, LIPD, CMP #### [facility] [address] [place], [place] [id number] Protein [Mass/Vol] 6.6 g/dL Normal 6.1-8.1 [facility] Comment on above: Performed By: #### V ITD, TSH reflex FT4, CBCAD, LIPD, CMP #### [facility] [address] [place], [place] [id number] Sodium [Moles/Vol] 139 mmol/L Normal 135-146 [facility] [place] [facility] Comment on above: Performed By: #### V ITD, TSH reflex FT4, CBCAD, LIPD, CMP #### [facility] [address] [place], [place] [id number] TBIL <0.3 Normal [facility] Comment on above: Performed By: #### V ITD, TSH reflex FT4, CBCAD, LIPD, CMP #### [facility] [address] [place], [place] [id number] Urea nitrogen [Mass/Vol] 19 mg/dL Normal 7-25 [facility] Comment on above: Performed By: #### V ITD, TSH reflex FT4, CBCAD, LIPD, CMP #### [facility] [address] [place], [place] [id number] Lipid Panelon 12-02-2021 Cholesterol [Mass/Vol] 223 mg/dL High 125-200 [facility] Comment on above: Result Comment: Low risk < 200mg/dL Borderline risk 201-239 mg/dl High risk > or equal to 240 Performed By: #### V ITD, TSH reflex FT4, CBCAD, LIPD, CMP #### [facility] [address] [place], [place] [id number] Cholesterol in HDL [Mass/Vol] 61 mg/dL Normal >40 [facility] Comment on above: Result Comment: High Cardiovascular Risk HDL <40 mg/dL Low Cardiovascular Risk HDL > or equal to 60 mg/dl Performed By: #### V ITD, TSH reflex FT4, CBCAD, LIPD, CMP #### [facility] [address] [place], [place] [id number] Cholesterol in LDL [Mass/Vol] 128 mg/dL Normal [facility] Comment on above: Result Comment: LDL ATP III CLASSIFICATION LDL less than 100 mg/dl Optimal LDL 100-129 mg/dl Near or above optimal LDL 130-159 Borderline high LDL 160-189 High LDL greater than 189 mg/dl Very High Performed By: #### V ITD, TSH reflex FT4, CBCAD, LIPD, CMP #### [facility] [address] [place], [place] [id number] Cholesterol in VLDL [Mass/Vol] 34 mg/dL Normal [facility] Specialist Comment on above: Performed By: #### V ITD, TSH reflex FT4, CBCAD, LIPD, CMP #### [facility] [address] [place], [place] [id number] Cholesterol.total/C holesterol in HDL [Mass ratio] 4 {ratio} Normal [facility] Specialist Comment on above: Performed By: #### V ITD, TSH reflex FT4, CBCAD, LIPD, CMP #### [facility] [address] [place], [place] [id number] Triglyceride [Mass/Vol] 171 mg/dL High 30-150 [facility] Special[facility] Comment on above: Result Comment: TRIG ATPIII CLASSIFICATIONS TRIG less than 150 mg/dl Normal TRIG 150-199 mg/dl Borderline High TRIG 200-500 mg/dl High TRIG greather than 500 mg/dl Very High Performed By: #### V ITD, TSH reflex FT4, CBCAD, LIPD, CMP #### [facility] [address] [place], [place] [id number] TSH w/ Reflex to Free T4on 0 12-02-2021 TSH 2.760 uIU/mL Normal 0.400-4.500 [facility] Comment on above: Performed By: #### V ITD, TSH reflex FT4, CBCAD, LIPD, CMP #### [facility] [address] [place], [place] [id number] Vitamin D 25-OHon 12-02-2021 VIT D 25 OH 56 ng/ml Normal >29 [facility] Comment on above: Result Comment: Mendy min D Status Deficiency <20 ng/mL Insufficiency 20-29 ng/mL Optimal 30-100 ng/mL Possible Toxicity >=150 ng/mL Performed By: #### V ITD, TSH reflex FT4, CBCAD, LIPD, CMP #### [facility] [address] [place], [place] [id number] Encounters Encounter Date Encounter Type Care Provider Facility Start: 05-17-2023 End: 05-17-2023 ambulatory LEYLA FELDER Not Available Start: 09-21-2022 End: 09-21-[address] MAHI GILL . Facility:[facility] Start: 09-21-2022 End: 09-22-[address] MAHI GILL . Facility[facility] Payers Date Payer Category Payer Unknown [id number] [id number] 1980 Unknown [id number] 1980 Unknown [id number] 1960 Unknown [id number] Summary Purpose Family History No Family History Records FoundNo Family History Records FoundNo Family History Records Found Advance Directives No Advanced Directives Records FoundNo Advanced Directives Records FoundNo Advanced Directives Records Found Additional Source Comments INFORMATION SOURCE (unrecogn ized section and content) DATE CREATED AUTHOR 12/03/2021 [facility] dical Specialist DATE CREATED AUTHOR AUTHOR'S ORGANIZ ATION 10/01/2022 [facility] pital DATE CREATED AUTHOR AUTHOR'S ORGANIZ ATION 05/19/2023 [facility] Specialists EPIC FOR RECORDS [...] ON THE PRIMARY CLINICAL RECORDS. [facility] [employer] provides no warranty or guarantee of the accuracy or completeness of information in this document.
--- NOTE | 2023-11-04 07:25 | MM_ITS ---
Patient Name: YULI DAVIS MR#: [id number] : 1980 Exam Date: 11/04/2023 Ordering Doctor: DR Rick Deng . RADIOLOGY REPORT PROCEDURE: MM POST BIOPSY RT COMPARISON: MM DIAGNOSTIC MAMMO UNILAT RT, 10/26/2023. INDICATIONS: Abnormal Mammogram With Microcalcifications BREAST COMPOSITION: There are scattered areas of fibroglandular density. FINDINGS: Post-Procedure Mammogram for Marker Placement DIAGNOSTIC CATEGORY 4--SUSPICIOUS FOR MALIGNANCY. FINDING DOES NOT EXHIBIT CLASSIC FINDINGS OF BREAST CANCER: BIOPSY MARKER: A metallic marker has been placed in the targeted location within the 6 o'clock anterior right breast. BREAST FINDINGS: The ultrasound lesion is separate and distinct from the mammographic lesion which is more posterior on the current mammogram. Sampling of the mammographic abnormality by stereotactic biopsy is recommended RECOMMENDATIONS: STEREOTACTIC BREAST BIOPSY: RIGHT BREAST Dictated by: Avila Vieyra MD on 11/04/2023 at 08:50 Approved by: Avila Vieyra MD on 11/04/2023 at 08:52
--- NOTE | 2023-11-04 07:25 | US_ITS ---
[address] [address] Patient Name: YULI DAVIS MRN: [id number] date: 1980 Sex: F Assigned Patient Location: US Current Patient Location: US Accession/Order Number: [id number] Exam Date: 11/04/2023 07:50 Report Date: 11/04/2023 08:32 At the request of: MAHI GILL Procedure: US breast vac bx w/ clip RT EXAMINATION: US breast vac bx w/ clip RT HISTORY: Abnormal Mammogram With Microcalcifications COMPARISON: No relevant comparison available. TECHNIQUE: After obtaining informed consent, an ultrasound-guided biopsy was performed in the usual sterile manner. FINDINGS: IMAGING: Ultrasound BIOPSY NEEDLE: 13-gauge vacuum-assisted mammotome: coaxial core SPECIMEN TYPE, #, LOCATION: 5 samples, 1.1 cm right breast mass MEDICATION: 2 cc 1% buffered lidocaine without epinephrine superficial. 6 cc 1% buffered lidocaine with epinephrine deep COMPLICATIONS: None. LABORATORY: Pathology pending OTHER: Negative. US/US breast vac bx w/ clip RT IMPRESSION: Uneventful ultrasound guided right breast core biopsy. The patient was instructed to obtain follow up care and biopsy results from the referring physician. Electronically authenticated by: DAISY ARMIJO Date: 11/04/2023 08:32
[2023-11-04 07:30] VITALS: BP 121/87; PULSE 94; O2SAT 98
[2023-11-04] MEDS: LIDOCAINE HCL 10 ML, SODIUM BICARBONATE 1 MEQ INJ (08:00)
[2023-11-04] MEDS: LIDOCAINE HCL/EPINEPHRINE 10 ML, SODIUM BICARBONATE 1 MEQ INJ (08:00)
--- NOTE | 2023-11-04 08:46 | SUR.PREOP ---
10/28/23 Pt instructed on procedure, date, time, and prep.
== END 2023-11-04 08:30 | disposition home or self-care (01) ==
LOC: US 07:21
PROVIDERS: Radiology Diagnostic Radiology; PCP Family Medicine; Visit Provider Obstetrics & Gynecology
DX: N60.21 Fibroadenosis of right breast (principal); N62 Hypertrophy of breast; R92.0 Mammographic microcalcification found on diagnostic imaging of breast; R92.8 Other abnormal and inconclusive findings on diagnostic imaging of breast
CPT/HCPCS: 19083; 77065; 88305

== ENCOUNTER 2023-11-08 21:42 | Outpatient (REF) | payer BC, SELFPAY ==
--- OUTSIDE RECORDS SUMMARY | 2023-11-08 21:52 | XMS_ITS | CCD ---
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 . Normal [facility] Comment on above: Result Comment: Perf ormed at: WB Performed By: #### [id number] #### [facility] [address] [address] [address] Allan Flowers Age Gdln ACOG Testing 30-65 Normal [facility] Comment on above: Performed By: #### [id number] #### [facility] [address] [address] [address] Allan Flowers DIAGNOSIS: Comment Normal [facility] Comment on above: Result Comment: NEGA TIVE FOR INTRAEPITHELIAL LESION OR MALIGNANCY. Performed at: WB Performed By: #### [id number] #### [facility] [address] [address] [address] Allan Flowers HPV Aptima Negative Normal Negative [facility] Comment on above: Result Comment: This nucleic acid amplification test detects fourteen high-risk HPV types (16,18,31,33,35,39,45,51,52,56,58,59,66,68) without differentiation. Performed at: =G Performed By: #### [id number] #### [facility] [address] [place] [address] Dr. Allan Flowers HPV Genotype Reflex Comment Normal [facility] Comment on above: Result Comment: Crit eria not met, HPV Genotype not performed. Performed at: WB Performed By: #### [id number] #### [facility] [address] [place] [address] Dr. Allan Flowers Methodology: Comment Normal [facility] Comment on above: Result Comment: This liquid based ThinPrep(R) pap test was screened with the use of an image guided system. Performed at: WB Performed By: #### [id number] #### [facility] [address] [place] [address] Dr. Allan Flowers Note: Comment Normal [facility] Comment on above: Result Comment: The Pap smear is a screening test designed to aid in the detection of premalignant and malignant conditions of the uterine cervix. It is not a diagnostic procedure and should not be used as the sole means of detecting cervical cancer. Both false-positive and false-negative reports do occur. . Performed at: WB Performed By: #### [id number] #### [facility] [address] [place] [address] Dr. Allan Flowers Performed by: Comment Normal [facility] Comment on above: Result Comment: Jacqueline Hartman, Supervisory Outboard Motor Assembler (ASCP) Performed at: WB Performed By: #### [id number] #### [facility] [address] [place] [address] Dr. Allan Flowers Specimen adequacy: Comment Normal [facility] Comment on above: Result Comment: Sati sfactory for evaluation. No endocervical component is identified. Performed at: WB Performed By: #### [id number] #### [facility] [address] [place] [address] Dr. Allan Flowers MAMM SCREEN 3D CHASIDY CADon 09-21-2022 MG MAMM SCREEN 3D CHASIDY CAD Patient: YULI DAVIS Exam Date: 09/21/2022 : 1980 Gender:F Ordering : DR MAHI GILL . Admission #: [id number] Family : Order #: [id number] CLICK HERE TO VIEW EXAM RADIOLOGY REPORT PROCEDURE: MAMMOGRAM SCREENING 3D BILATERAL CAD COMPARISON: MG MAMM SCREEN 3D CHASIDY CAD, 10/29/2020. INDICATIONS: Screening mammography Calculator Name NCI Breast Cancer Risk Assessment Tool 5 Year Breast Cancer Risk 0.90% Lifetime Breast Cancer Risk 11.80% Personal Breast Cancer No Personal Ovarian Cancer No Treatments None Family Cancers None LOCATION: [facility] BREAST COMPOSITION: Scattered areas fibroglandular density. FINDINGS: [...] M.D. on 09/22/2022 at 08:33 Normal [facility] Complete Blood Count with Au to Diffon 12-02-2021 Basophils (Bld) [#/Vol] 0.06 10*3/uL Normal 0.00-0.20 [facility] Comment on above: Performed By: #### V ITD, TSH reflex FT4, CBCAD, LIPD, CMP #### [facility] [address], [place] [id number] Basophils/100 WBC (Bld) 0.8 % Normal [facility] Comment on above: Performed By: #### V ITD, TSH reflex FT4, CBCAD, LIPD, CMP #### [facility] [address], [place] [id number] Eosinophils (Bld) [#/Vol] 0.31 10*3/uL Normal 0.02-0.50 [facility] Operations Executive Comment on above: Performed By: #### V ITD, TSH reflex FT4, CBCAD, LIPD, CMP #### [facility] [address], [place] [id number] Eosinophils/100 WBC (Bld) 4.4 % Normal [facility] Special[facility] Comment on above: Performed By: #### V ITD, TSH reflex FT4, CBCAD, LIPD, CMP #### [facility] [address], [place] [id number] Erythrocyte distribution width (RBC) [Ratio] 13.3 % Normal 11.0-15.0 [facility] Special[facility] Comment on above: Performed By: #### V ITD, TSH reflex FT4, CBCAD, LIPD, CMP #### [facility] [address], [place] [id number] Hematocrit (Bld) [Volume fraction] 36.2 % Normal 35.0-47.0 [facility] Specialist Comment on above: Performed By: #### V ITD, TSH reflex FT4, CBCAD, LIPD, CMP #### [facility] [address], [place] [id number] Hemoglobin (Bld) [Mass/Vol] 11.3 g/dL Low 11.6-15.5 [facility] Specialist Comment on above: Performed By: #### V ITD, TSH reflex FT4, CBCAD, LIPD, CMP #### [facility] [address], [place] [id number] Lymphocytes (Bld) [#/Vol] 1.8 10*3/uL Normal 0.9-3.9 [facility] Special[facility] Comment on above: Performed By: #### V ITD, TSH reflex FT4, CBCAD, LIPD, CMP #### [facility] [address], [place] [id number] Lymphocytes/100 WBC (Bld) 25.5 % Normal [facility] Specialist Comment on above: Performed By: #### V ITD, TSH reflex FT4, CBCAD, LIPD, CMP #### [facility] [address], [place] [id number] MCH (RBC) [Entitic mass] 27.2 pg Normal 27.0-33.0 [facility] Specialist Comment on above: Performed By: #### V ITD, TSH reflex FT4, CBCAD, LIPD, CMP #### [facility] [address], [place] [id number] MCHC (RBC) [Mass/Vol] 31.2 g/dL Low 32.0-36.0 [facility] Special[facility] Comment on above: Performed By: #### V ITD, TSH reflex FT4, CBCAD, LIPD, CMP #### [facility] [address], [place] [id number] MCV (RBC) [Entitic vol] 87 fL Normal 80-100 [facility] Special[facility] Comment on above: Performed By: #### V ITD, TSH reflex FT4, CBCAD, LIPD, CMP #### [facility] [address], [place] [id number] Monocytes (Bld) [#/Vol] 0.5 10*3/uL Normal 0.2-0.9 [facility] Specialist Comment on above: Performed By: #### V ITD, TSH reflex FT4, CBCAD, LIPD, CMP #### [facility] [address], [place] [id number] Monocytes/100 WBC (Bld) 6.5 % Normal [facility] Specialist Comment on above: Performed By: #### V ITD, TSH reflex FT4, CBCAD, LIPD, CMP #### [facility] [address], [place] [id number] Neutrophils (Bld) [#/Vol] 4.4 10*3/uL Normal 1.5-7.8 [facility] Comment on above: Performed By: #### V ITD, TSH reflex FT4, CBCAD, LIPD, CMP #### [facility] [address], [place] [id number] Neutrophils/100 WBC (Bld) 62.4 % Normal [facility] Specialist Comment on above: Performed By: #### V ITD, TSH reflex FT4, CBCAD, LIPD, CMP #### [facility] [address], [place] [id number] Platelet mean volume (Bld) [Entitic vol] 11.40 fL Normal 7.50-12.50 [facility] Specialist Comment on above: Performed By: #### V ITD, TSH reflex FT4, CBCAD, LIPD, CMP #### [facility] [address], [place] [id number] Platelets (Bld) [#/Vol] 309 10*3/uL Normal 140-400 [facility] Specialist Comment on above: Performed By: #### V ITD, TSH reflex FT4, CBCAD, LIPD, CMP #### [facility] [address], [place] [id number] RBC (Bld) [#/Vol] 4.16 10*6/uL Normal 3.90-5.20 [facility] Comment on above: Performed By: #### V ITD, TSH reflex FT4, CBCAD, LIPD, CMP #### [facility] [address], [place] [id number] RDW-SD 42.5 fL Normal 37.0-50.0 [facility] Special[facility] Comment on above: Performed By: #### V ITD, TSH reflex FT4, CBCAD, LIPD, CMP #### [facility] [address], [place] [id number] WBC (Bld) [#/Vol] 7.1 10*3/uL Normal 3.8-11.0 [facility] Specialist Comment on above: Performed By: #### V ITD, TSH reflex FT4, CBCAD, LIPD, CMP #### [facility] [address], [place] [id number] Comprehensive Metabolic Pane [facility] 12-02-2021 Albumin [Mass/Vol] 4.5 g/dL Normal 3.6-5.1 [facility] Special[facility] Comment on above: Performed By: #### V ITD, TSH reflex FT4, CBCAD, LIPD, CMP #### [facility] [address], [place] [id number] Albumin/Globulin [Mass ratio] 2.1 {ratio} Normal 1.0-2.5 [facility] Special[facility] Comment on above: Performed By: #### V ITD, TSH reflex FT4, CBCAD, LIPD, CMP #### [facility] [address], [place] [id number] ALP [Catalytic activity/Vol] 70 U/L Normal 35-119 [facility] Special[facility] Comment on above: Performed By: #### V ITD, TSH reflex FT4, CBCAD, LIPD, CMP #### [facility] [address], [place] [id number] ALT [Catalytic activity/Vol] 15 U/L Normal 6-33 [facility] Comment on above: Result Comment: 06/03 Female reference range changed. Performed By: #### V ITD, TSH reflex FT4, CBCAD, LIPD, CMP #### [facility] [address], [place] [id number] Anion gap [Moles/Vol] 17 mmol/L Normal 12-20 [facility] Comment on above: Result Comment: Effe ctive 07/09/2019 reference range changed. Performed By: #### V ITD, TSH reflex FT4, CBCAD, LIPD, CMP #### [facility] [address], [place] [id number] AST [Catalytic activity/Vol] 18 U/L Normal 9-34 [facility] Comment on above: Performed By: #### V ITD, TSH reflex FT4, CBCAD, LIPD, CMP #### [facility] [address], [place] [id number] BUN/CREA 21 Ratio Normal 6-22 [facility] Comment on above: Performed By: #### V ITD, TSH reflex FT4, CBCAD, LIPD, CMP #### [facility] [address], [place] [id number] Calcium [Mass/Vol] 9.7 mg/dL Normal 8.6-10.2 [facility] Comment on above: Performed By: #### V ITD, TSH reflex FT4, CBCAD, LIPD, CMP #### [facility] [address], [place] [id number] Chloride [Moles/Vol] 102 mmol/L Normal 98-107 [facility] Comment on above: Performed By: #### V ITD, TSH reflex FT4, CBCAD, LIPD, CMP #### [facility] [address] [facility] [place] [id number] CO2 [Moles/Vol] 23 mmol/L Normal 20-31 [facility] Special[facility] Comment on above: Performed By: #### V ITD, TSH reflex FT4, CBCAD, LIPD, CMP #### [facility] [address], [place] [id number] Creatinine [Mass/Vol] 0.9 mg/dL Normal 0.6-1.4 [facility] Comment on above: Performed By: #### V ITD, TSH reflex FT4, CBCAD, LIPD, CMP #### [facility] [address], [place] [id number] eGFRAA 81 mL/min/1.73m2 Normal >60 [facility] Executive Comment on above: Performed By: #### V ITD, TSH reflex FT4, CBCAD, LIPD, CMP #### [facility] [address], [place] [id number] eGFRNAA 67 mL/min/1.73m2 Normal >60 [facility] Executive Comment on above: Performed By: #### V ITD, TSH reflex FT4, CBCAD, LIPD, CMP #### [facility] [address], [place] [id number] Globulin (S) [Mass/Vol] 2.1 g/dL Normal 1.9-3.7 [facility] Executive Comment on above: Performed By: #### V ITD, TSH reflex FT4, CBCAD, LIPD, CMP #### [facility] [address], [place] [id number] Glucose [Mass/Vol] 109 mg/dL High 65-99 [facility] Operations Executive Comment on above: Result Comment: For FASTING Glucose --- ADA reference ranges: Normal 65-99 mg/dl Prediabetes 100-125 Diabetes >/= 126 Performed By: #### V ITD, TSH reflex FT4, CBCAD, LIPD, CMP #### [facility] [address], [place] [id number] Potassium [Moles/Vol] 4.0 mmol/L Normal 3.5-5.5 [facility] Executive Comment on above: Performed By: #### V ITD, TSH reflex FT4, CBCAD, LIPD, CMP #### [facility] [address], [place] [id number] Protein [Mass/Vol] 6.6 g/dL Normal 6.1-8.1 [facility] Operations Executive Comment on above: Performed By: #### V ITD, TSH reflex FT4, CBCAD, LIPD, CMP #### [facility] [address], [place] [id number] Sodium [Moles/Vol] 139 mmol/L Normal 135-146 [facility] [place] [facility] Executive Comment on above: Performed By: #### V ITD, TSH reflex FT4, CBCAD, LIPD, CMP #### [facility] [address], [place] [id number] TBIL <0.3 Normal [facility] Operations Executive Comment on above: Performed By: #### V ITD, TSH reflex FT4, CBCAD, LIPD, CMP #### [facility] [address], [place] [id number] Urea nitrogen [Mass/Vol] 19 mg/dL Normal 7-25 [facility] Executive Comment on above: Performed By: #### V ITD, TSH reflex FT4, CBCAD, LIPD, CMP #### [facility] [address], [place] [id number] Lipid Panelon 12-02-2021 Cholesterol [Mass/Vol] 223 mg/dL High 125-200 [facility] Executive Comment on above: Result Comment: Low risk < 200mg/dL Borderline risk 201-239 mg/dl High risk > or equal to 240 Performed By: #### V ITD, TSH reflex FT4, CBCAD, LIPD, CMP #### [facility] [address], [place] [id number] Cholesterol in HDL [Mass/Vol] 61 mg/dL Normal >40 [facility] Operations Executive Comment on above: Result Comment: High Cardiovascular Risk HDL <40 mg/dL Low Cardiovascular Risk HDL > or equal to 60 mg/dl Performed By: #### V ITD, TSH reflex FT4, CBCAD, LIPD, CMP #### [facility] [address], [place] [id number] Cholesterol in LDL [Mass/Vol] 128 mg/dL Normal [facility] Operations Executive Comment on above: Result Comment: LDL ATP III CLASSIFICATION LDL less than 100 mg/dl Optimal LDL 100-129 mg/dl Near or above optimal LDL 130-159 Borderline high LDL 160-189 High LDL greater than 189 mg/dl Very High Performed By: #### V ITD, TSH reflex FT4, CBCAD, LIPD, CMP #### [facility] [address], [place] [id number] Cholesterol in VLDL [Mass/Vol] 34 mg/dL Normal [facility] Specialist Comment on above: Performed By: #### V ITD, TSH reflex FT4, CBCAD, LIPD, CMP #### [facility] [address], [place] [id number] Cholesterol.total/C holesterol in HDL [Mass ratio] 4 {ratio} Normal [facility] Specialist Comment on above: Performed By: #### V ITD, TSH reflex FT4, CBCAD, LIPD, CMP #### [facility] [address], [place] [id number] Triglyceride [Mass/Vol] 171 mg/dL High 30-150 [facility] Specialist Comment on above: Result Comment: TRIG ATPIII CLASSIFICATIONS TRIG less than 150 mg/dl Normal TRIG 150-199 mg/dl Borderline High TRIG 200-500 mg/dl High TRIG greather than 500 mg/dl Very High Performed By: #### V ITD, TSH reflex FT4, CBCAD, LIPD, CMP #### [facility] [address], [place] [id number] TSH w/ Reflex to Free T4on 0 12-02-2021 TSH 2.760 uIU/mL Normal 0.400-4.500 [facility] Operations Executive Comment on above: Performed By: #### V ITD, TSH reflex FT4, CBCAD, LIPD, CMP #### [facility] [address], [place] [id number] Vitamin D 25-OHon 12-02-2021 VIT D 25 OH 56 ng/ml Normal >29 [facility] Executive Comment on above: Result Comment: Mendy min D Status Deficiency <20 ng/mL Insufficiency 20-29 ng/mL Optimal 30-100 ng/mL Possible Toxicity >=150 ng/mL Performed By: #### V ITD, TSH reflex FT4, CBCAD, LIPD, CMP #### [facility] [address], [place] [id number] Encounters Encounter Date Encounter Type Care Provider Facility Start: 05-17-2023 End: 05-17-2023 ambulatory LEYLA FELDER Not Available Start: 09-21-2022 End: 09-21-[address] MAHI GILL . Facility:[facility] Start: 09-21-2022 End: 09-22-[address] MAHI GILL . Facility:[facility] Payers Date Payer Category Payer Unknown [id number] 1980 Unknown [id number] 1980 Unknown [id number] 1960 Unknown [id number] Summary Purpose Family History No Family History Records FoundNo Family History Records FoundNo Family History Records Found Advance Directives No Advanced Directives Records FoundNo Advanced Directives Records FoundNo Advanced Directives Records Found Additional Source Comments INFORMATION SOURCE (unrecogn ized section and content) DATE CREATED AUTHOR 12/03/2021 [facility] dical Specialist DATE CREATED AUTHOR AUTHOR'S ORGANIZ ATION 10/01/2022 [facility] DATE CREATED AUTHOR AUTHOR'S ORGANIZ ATION 05/19/2023 [facility] dical Specialists EPIC FOR RECORDS [...] BE BASED ON THE PRIMARY CLINICAL RECORDS. [facility] [employer] provides no warranty or guarantee of the accuracy or completeness of information in this document.
== END 2023-11-08 21:43 | disposition home or self-care (01) ==
LOC: LAB 21:42
PROVIDERS: PCP Family Medicine; Visit Provider Physician Assistant
DX: Z01.419 Encounter for gynecological examination (general) (routine) without abnormal findings (principal)
CPT/HCPCS: G0145

== ENCOUNTER 2024-11-12 07:16 | Outpatient (OUT) | payer BC, SELFPAY ==
--- NOTE | 2024-11-12 | MM_ITS ---
Patient Name: YULI DAVIS MR#: [id number] : 1980 Exam Date: 11/12/2024 Ordering Doctor: DR MAHI GILL . RADIOLOGY REPORT PROCEDURE: MM TOMOSYNTHESIS SCREENING BI COMPARISON: US BREAST RT LIMITED, 10/26/2023. MM POST BIOPSY RT, 11/04/2023. MM DIAGNOSTIC MAMMO UNILAT RT, 10/26/2023. MM TOMOSYNTHESIS SCREENING BI, 10/11/2023. MG MAMM SCREEN 3D CHASIDY CAD, 09/21/2022. INDICATIONS: Screening mammogram Calculator Name NCI Breast Cancer Risk Assessment Tool 5 Year Breast Cancer Risk 2.70% Lifetime Breast Cancer Risk 17.80% Personal Breast Cancer No Personal Ovarian Cancer No Treatments None Family Cancers None LOCATION: [facility] BREAST COMPOSITION: There are scattered areas of fibroglandular density. FINDINGS: DIAGNOSTIC CATEGORY 1--NEGATIVE. RIGHT BREAST: No significant suspicious finding. Previously biopsied mass is once again noted. LEFT BREAST: No significant suspicious finding. RECOMMENDATIONS: ROUTINE MAMMOGRAM AND CLINICAL EVALUATION IN 12 MONTHS. PLEASE NOTE: Dictated by: Augusto Rodney DO on 11/12/2024 at 15:23 Approved by: Augusto Rodney DO on 11/12/2024 at 15:35
--- OUTSIDE RECORDS SUMMARY | 2024-11-12 07:20 | XMS_ITS | CCD ---
Author Organization [facility] Care Team Providers Care Wedding Coordinator Name Role Phone SOWMYA ., DR CHAMPAGNE Admitting Unavailable SOWMYA ., DR CHAMPAGNE Consulting Unavailable SOWMYA ., DR CHAMPAGNE Attending Unavailable VALENTIN, DR GIBSON Primary Care Unavailable AMINA, DR DAMIAN Anaya Consulting Unavailable SOWMYA ., DR CHAMPAGNE Admitting Unavailable SOWMYA ., DR CHAMPAGNE Consulting Unavailable SOWMYA ., DR CHAMPAGNE Attending Unavailable VALENTIN, DR GIBSON Primary Care Unavailable MD Avila Vieyra V Attending Provider [phone] Lucy Snowden MD Primary Care Provider Tressa SALES REPRESENTATIVE RAW FIBERS, Leyla Rascon Unavailable LEYLA BUSTILLOS Attending Unavailab ELLY Hoffman Attending Unavailable MAHI DENG Attending Unavailable LEYLA BUSTILLOS Attending Unavailab ELLY Hoffman Attending Unavailable ELLY HELM Attending Unavailable ELLY HELM Attending Unavailable MAHI DENG Attending Unavailable Medications Current Medications Medication Drug Class(es) Dates Sig (Normalized) Sig (Original) betamethasone 1 mg/ml topical cream (9 sources) Corticosteroid Start: 01-13-2024 betamethasone valerate (Valisone) 0.1 % cream Indications: Poison vincenzo Apply topically 2 (two) times a day 15 g 2 01/13/2024 Active metFORMIN hydrochloride 500 mg oral tablet (14 sources) Biguanide Start: 02-27-2024 End: 05-23-2024 take 1 tablet by mouth in the morning metFORMIN (Glucophage) 500 MG tablet Indications: Weight gain , Encounter for weight management Take 1 tablet (500 mg) by mouth in the morning and 1 tablet (500 mg) in the evening. Take with meals. 60 tablet 11 04/23/2024 05/23/2024 Active Start: 12-31-2023 take 500 mg by mouth once daily in the evening Metformin Active 500 MG PO Every evening December 31, 2023 12:00am Start: 12-21-2023 End: 12-20-2024 take 1 tablet by mouth every twenty-four hours at mealtime metFORMIN XR (Glucophage-XR) 500 MG 24 hr tablet Indications: Weight gain Take 1 tablet (500 mg) by mouth in the evening. Take with meals Do not crush, chew, or split. 30 tablet 11 12/21/2023 02/27/2024 Discontinued Multiple Vitamin (multivitamin) capsule (9 sources) take 1 capsule by mouth in the morning Multiple Vitamin (multivitamin) capsule Take 1 capsule by mouth in the morning. Active phentermine hydrochloride 37.5 mg oral tablet (19 sources) Sympathomimetic Amine Anorectic Start: 024 End: 025 take 1 tablet by mouth before mealtime phentermine (Adipex-P) 37.5 MG tablet Indications: Encounter for weight management Take 1 tablet (37.5 mg) by mouth in the morning. Take before meals. 30 tablet 03/26/2024 04/25/2024 Active Start: 12-31-2023 take 37.5 mg by mout h once daily Phentermine Active 37.5 MG PO Daily December 31, 2023 12:00am predniSONE 20 mg oral tablet (1 source) Start: 12-31-2023 take 3 tablets by mouth once daily, then take 2 tablets by mouth once daily, then take 1 tablet by mouth once daily Prednisone Active 20 MG PO .COMPLEX 18 December 31, 2023 12:00am Take 3 tabs po daily x 3 days, then take 2 tabs po daily x 3 days, then take 1 tab po daily x 3 days. Problems Active Problems Problem Classification Problem Date Documented Da te Episodic/Chronic Allergic reactions (6 sources) Contact dermatitis due to poison vincenzo; Translations: [Allergic contact dermatitis due to plants, except food] 11-27-2023 Episodic Menstrual disorders (9 sources) Excessive and frequent menstruation; Translations: [Excessive and frequent menstruation with regular cycle] Onset: 05-05-2023 05-05-2023 Chronic Other endocrine disorders (1 source) Polycystic ovary syndrome; Translations: [Polycystic ovarian syndrome] 12-31-2023 Chronic Other endocrine disorders (9 sources) Polycystic ovary; Translations: [Polycystic ovarian syndrome] Onset: 05-05-2023 05-05-2023 Chronic Other nutritional; endocrine; and metabolic disorders (9 sources) Body mass index 40+ - severely obese; Translations: [Body mass index (BMI) 40.0-44.9, adult] Onset: 05-05-2023 05-05-2023 Chronic Other nutritional; endocrine; and metabolic disorders (4 sources) Weight increased; Translations: [Abnormal weight gain] 04-23-2024 Episodic Other screening for suspected conditions (not mental disorders or infectious disease) (9 sources) Encounter for screening for malignant neoplasm of cervix; Translations: [Encounter for screening mammogram for malignant neoplasm of breast] Onset: 09-21-2022 Episodic Screening and history of mental health and substance abuse codes (15 sources) Patient encounter status; Translations: [Encounter for screening for depression] Onset: 05-05-2023 05-05-2023 Episodic Past or Other Problems Problem Classification Problem Date Documented Date Episodic/Chronic Other nutritional; endocrine; and metabolic disorders (9 sources) Abnormal weight gain; Translations: [Abnormal weight gain] Onset: 05-05-2023 05-05-2023 Episodic Other nutritional; endocrine; and metabolic disorders (2 sources) Weight gain; Translations: [Abnormal weight gain] 02-27-2024 Episodic Residual codes; unclassified (9 sources) History of endometrial ablation; Translations: [Other specified postprocedural states] Onset: 05-05-2023 05-05-2023 Episodic Results Test Name Value Interpretation Reference Range Facility PAP ACOG PANEL 2: 30 to 65on 09-28-2022 . . Normal [facility] Comment on above: Result Comment: Perf ormed at: WB Performed By: #### [id number] #### [facility] [address] [address] [address] Allan Flowers Age Gdln ACOG Testing 30-65 Normal [facility] Comment on above: Performed By: #### [id number] #### [facility] [address] [address] [address] Allan Flowers DIAGNOSIS: Comment Normal [facility] Comment on above: Result Comment: NEGA TIVE FOR INTRAEPITHELIAL LESION OR MALIGNANCY. Performed at: WB Performed By: #### [id number] #### [facility] [address] [place] [address] Dr. Allan Flowers HPV Aptima Negative Normal Negative [facility] Comment on above: Result Comment: This nucleic acid amplification test detects fourteen high-risk HPV types (16,18,31,33,35,39,45,51,52,56,58,59,66,68) without differentiation. Performed at: =G Performed By: #### [id number] #### [facility] [address] [place] [address] Dr. Allan Flowers HPV Genotype Reflex Comment Normal [facility] Comment on above: Result Comment: Crit eria not met, HPV Genotype not performed. Performed at: WB Performed By: #### [id number] #### [facility] [address] [place] [address] Dr. Allan Flowers Methodology: Comment Normal [facility] Comment on above: Result Comment: This liquid based ThinPrep(R) pap test was screened with the use of an image guided system. Performed at: WB Performed By: #### [id number] #### [facility] [address] [place] [address] Dr. Allan Flowers Note: Comment Normal [facility] Comment on above: Result Comment: The Pap smear is a screening test designed to aid in the detection of premalignant and malignant conditions of the uterine cervix. It is not a diagnostic procedure and should not be used as the sole means of detecting cervical cancer. Both false-positive and false-negative reports do occur. . Performed at: WB Performed By: #### [id number] #### [facility] [address] [place] [address] Dr. Allan Flowers Performed by: Comment Normal [facility] Comment on above: Result Comment: Jacqueline Hartman, Supervisory Dry Boss (ASCP) Performed at: WB Performed By: #### [id number] #### [facility] [address] [place] [address] Dr. Allan Flowers Specimen adequacy: Comment Normal [facility] Comment on above: Result Comment: Sati sfactory for evaluation. No endocervical component is identified. Performed at: WB Performed By: #### [id number] #### [facility] [id number] Allan Flowers MG MAMM SCREEN 3D CHASIDY CADon 09-21-2022 MG MAMM SCREEN 3D CHASIDY CAD Patient: AGA DAVIS Exam Date: 09/21/2022 : 1980 Gender:F Ordering : DR MAHI DENG . Admission #: [id number] Family : Order #: [id number] CLICK HERE TO VIEW EXAM RADIOLOGY REPORT PROCEDURE: MAMMOGRAM SCREENING 3D BILATERAL CAD COMPARISON: MG MAMM SCREEN 3D CHASIDY CAD, 10/29/2020. INDICATIONS: Screening mammography Calculator Name NCI Breast Cancer Risk Assessment Tool 5 Year Breast Cancer Risk 0.90% Lifetime Breast Cancer Risk 11.80% Personal Breast Cancer No Personal Ovarian Cancer No Treatments None Family Cancers None LOCATION: [facility] BREAST COMPOSITION: Scattered areas fibroglandular density. FINDINGS: [...] PALPABLE LUMP SHOULD BE BIOPSIED. Dictated by: Damian Wasserman M.D. on 09/22/2022 at 08:27 Approved by: Damian Wasserman M.D. on 09/22/2022 at 08:33 Normal [facility] Complete Blood Count with Au to Diffon 12-02-2021 Basophils (Bld) [#/Vol] 0.06 10*3/uL Normal 0.00-0.20 [facility] [employer] Teacher Comment on above: Performed By: #### V ITD, TSH reflex FT4, CBCAD, LIPD, CMP #### [facility] [address] [place], [place] [id number] Basophils/100 WBC (Bld) 0.8 % Normal [facility] [employer] Teacher Comment on above: Performed By: #### V ITD, TSH reflex FT4, CBCAD, LIPD, CMP #### [facility] [address], [place] [id number] Eosinophils (Bld) [#/Vol] 0.31 10*3/uL Normal 0.02-0.50 [facility] Comment on above: Performed By: #### V ITD, TSH reflex FT4, CBCAD, LIPD, CMP #### [facility] [address], [place] [id number] Eosinophils/100 WBC (Bld) 4.4 % Normal [facility] Comment on above: Performed By: #### V ITD, TSH reflex FT4, CBCAD, LIPD, CMP #### [facility] [address], [place] [id number] Erythrocyte distribution width (RBC) [Ratio] 13.3 % Normal 11.0-15.0 [facility] [employer] Teacher Comment on above: Performed By: #### V ITD, TSH reflex FT4, CBCAD, LIPD, CMP #### [facility] [address], [place] [id number] Hematocrit (Bld) [Volume fraction] 36.2 % Normal 35.0-47.0 [facility] Comment on above: Performed By: #### V ITD, TSH reflex FT4, CBCAD, LIPD, CMP #### [facility] [address], [place] [id number] Hemoglobin (Bld) [Mass/Vol] 11.3 g/dL Low 11.6-15.5 [facility] [employer] Teacher Comment on above: Performed By: #### V ITD, TSH reflex FT4, CBCAD, LIPD, CMP #### [facility] [address], [place] [id number] Lymphocytes (Bld) [#/Vol] 1.8 10*3/uL Normal 0.9-3.9 [facility] Comment on above: Performed By: #### V ITD, TSH reflex FT4, CBCAD, LIPD, CMP #### [facility] [address], [place] [id number] Lymphocytes/100 WBC (Bld) 25.5 % Normal [facility] Comment on above: Performed By: #### V ITD, TSH reflex FT4, CBCAD, LIPD, CMP #### [facility] [address], [place] [id number] MCH (RBC) [Entitic mass] 27.2 pg Normal 27.0-33.0 [facility] Comment on above: Performed By: #### V ITD, TSH reflex FT4, CBCAD, LIPD, CMP #### [facility] [address], [place] [id number] MCHC (RBC) [Mass/Vol] 31.2 g/dL Low 32.0-36.0 [facility] Comment on above: Performed By: #### V ITD, TSH reflex FT4, CBCAD, LIPD, CMP #### [facility] [address], [place] [id number] MCV (RBC) [Entitic vol] 87 fL Normal 80-100 [facility] Comment on above: Performed By: #### V ITD, TSH reflex FT4, CBCAD, LIPD, CMP #### [facility] [address], [place] [id number] Monocytes (Bld) [#/Vol] 0.5 10*3/uL Normal 0.2-0.9 [facility] Comment on above: Performed By: #### V ITD, TSH reflex FT4, CBCAD, LIPD, CMP #### [facility] [address], [place] [id number] Monocytes/100 WBC (Bld) 6.5 % Normal [facility] Comment on above: Performed By: #### V ITD, TSH reflex FT4, CBCAD, LIPD, CMP #### [facility] [address], [place] [id number] Neutrophils (Bld) [#/Vol] 4.4 10*3/uL Normal 1.5-7.8 [facility] Comment on above: Performed By: #### V ITD, TSH reflex FT4, CBCAD, LIPD, CMP #### [facility] [address], [place] [id number] Neutrophils/100 WBC (Bld) 62.4 % Normal [facility] Comment on above: Performed By: #### V ITD, TSH reflex FT4, CBCAD, LIPD, CMP #### [facility] [address], [place] [id number] Platelet mean volume (Bld) [Entitic vol] 11.40 fL Normal 7.50-12.50 [facility] Comment on above: Performed By: #### V ITD, TSH reflex FT4, CBCAD, LIPD, CMP #### [facility] [address], [place] [id number] Platelets (Bld) [#/Vol] 309 10*3/uL Normal 140-400 [facility] Comment on above: Performed By: #### V ITD, TSH reflex FT4, CBCAD, LIPD, CMP #### [facility] [address], [place] [id number] RBC (Bld) [#/Vol] 4.16 10*6/uL Normal 3.90-5.20 [facility] [employer] Teacher Comment on above: Performed By: #### V ITD, TSH reflex FT4, CBCAD, LIPD, CMP #### [facility] [address], [place] [id number] RDW-SD 42.5 fL Normal 37.0-50.0 [facility] Comment on above: Performed By: #### V ITD, TSH reflex FT4, CBCAD, LIPD, CMP #### [facility] [address], [place] [id number] WBC (Bld) [#/Vol] 7.1 10*3/uL Normal 3.8-11.0 [facility] [employer] Teacher Comment on above: Performed By: #### V ITD, TSH reflex FT4, CBCAD, LIPD, CMP #### [facility] [address], [place] [id number] Comprehensive Metabolic Pane [facility] [place] 12-02-2021 Albumin [Mass/Vol] 4.5 g/dL Normal 3.6-5.1 [facility] [employer] Teacher Comment on above: Performed By: #### V ITD, TSH reflex FT4, CBCAD, LIPD, CMP #### [facility] [address], [place] [id number] Albumin/Globulin [Mass ratio] 2.1 {ratio} Normal 1.0-2.5 [facility] Comment on above: Performed By: #### V ITD, TSH reflex FT4, CBCAD, LIPD, CMP #### [facility] [address], [place] [id number] ALP [Catalytic activity/Vol] 70 U/L Normal 35-119 [facility] Comment on above: Performed By: #### V ITD, TSH reflex FT4, CBCAD, LIPD, CMP #### [facility] [address], [place] [id number] ALT [Catalytic activity/Vol] 15 U/L Normal 6-33 [facility] Comment on above: Result Comment: 06/03 Female reference range changed. Performed By: #### V ITD, TSH reflex FT4, CBCAD, LIPD, CMP #### [facility] [address], [place] [id number] Anion gap [Moles/Vol] 17 mmol/L Normal 12-20 [facility] Comment on above: Result Comment: Effe ctive 07/09/2019 reference range changed. Performed By: #### V ITD, TSH reflex FT4, CBCAD, LIPD, CMP #### [facility] [address], [place] [id number] AST [Catalytic activity/Vol] 18 U/L Normal 9-34 [facility] Comment on above: Performed By: #### V ITD, TSH reflex FT4, CBCAD, LIPD, CMP #### [facility] [address], [place] [id number] BUN/CREA 21 Ratio Normal 6-22 [facility] Comment on above: Performed By: #### V ITD, TSH reflex FT4, CBCAD, LIPD, CMP #### [facility] [address], [place] [id number] Calcium [Mass/Vol] 9.7 mg/dL Normal 8.6-10.2 [facility] Comment on above: Performed By: #### V ITD, TSH reflex FT4, CBCAD, LIPD, CMP #### [facility] [address], [place] [id number] Chloride [Moles/Vol] 102 mmol/L Normal 98-107 [facility] Comment on above: Performed By: #### V ITD, TSH reflex FT4, CBCAD, LIPD, CMP #### [facility] [address], [place] [id number] CO2 [Moles/Vol] 23 mmol/L Normal 20-31 [facility] Comment on above: Performed By: #### V ITD, TSH reflex FT4, CBCAD, LIPD, CMP #### [facility] [address], [place] [id number] Creatinine [Mass/Vol] 0.9 mg/dL Normal 0.6-1.4 [facility] Comment on above: Performed By: #### V ITD, TSH reflex FT4, CBCAD, LIPD, CMP #### [facility] [address], [place] [id number] eGFRAA 81 mL/min/1.73m2 Normal >60 [facility] Comment on above: Performed By: #### V ITD, TSH reflex FT4, CBCAD, LIPD, CMP #### [facility] [address], [place] [id number] eGFRNAA 67 mL/min/1.73m2 Normal >60 [facility] Comment on above: Performed By: #### V ITD, TSH reflex FT4, CBCAD, LIPD, CMP #### [facility] [address], [place] [id number] Globulin (S) [Mass/Vol] 2.1 g/dL Normal 1.9-3.7 [facility] Comment on above: Performed By: #### V ITD, TSH reflex FT4, CBCAD, LIPD, CMP #### [facility] [address], [place] [id number] Glucose [Mass/Vol] 109 mg/dL High 65-99 [facility] Comment on above: Result Comment: For FASTING Glucose --- ADA reference ranges: Normal 65-99 mg/dl Prediabetes 100-125 Diabetes >/= 126 Performed By: #### V ITD, TSH reflex FT4, CBCAD, LIPD, CMP #### [facility] [address], [place] [id number] Potassium [Moles/Vol] 4.0 mmol/L Normal 3.5-5.5 [place] [employer] Comment on above: Performed By: #### V ITD, TSH reflex FT4, CBCAD, LIPD, CMP #### [facility] [address], [place] [id number] Protein [Mass/Vol] 6.6 g/dL Normal 6.1-8.1 [facility] [place] [employer] Teacher Comment on above: Performed By: #### V ITD, TSH reflex FT4, CBCAD, LIPD, CMP #### [facility] [address], [place] [id number] Sodium [Moles/Vol] 139 mmol/L Normal 135-146 [facility] min [place] [employer] Teacher Comment on above: Performed By: #### V ITD, TSH reflex FT4, CBCAD, LIPD, CMP #### [facility] [address], [place] [id number] TBIL <0.3 Normal [facility] Comment on above: Performed By: #### V ITD, TSH reflex FT4, CBCAD, LIPD, CMP #### [facility] [address], [place] [id number] Urea nitrogen [Mass/Vol] 19 mg/dL Normal 7-25 [facility] [employer] Teacher Comment on above: Performed By: #### V ITD, TSH reflex FT4, CBCAD, LIPD, CMP #### [facility] [address], [place] [id number] Lipid Panelon 12-02-2021 Cholesterol [Mass/Vol] 223 mg/dL High 125-200 [facility] [employer] Teacher Comment on above: Result Comment: Low risk < 200mg/dL Borderline risk 201-239 mg/dl High risk > or equal to 240 Performed By: #### V ITD, TSH reflex FT4, CBCAD, LIPD, CMP #### [facility] [address], [place] [id number] Cholesterol in HDL [Mass/Vol] 61 mg/dL Normal >40 [facility] [employer] Teacher Comment on above: Result Comment: High Cardiovascular Risk HDL <40 mg/dL Low Cardiovascular Risk HDL > or equal to 60 mg/dl Performed By: #### V ITD, TSH reflex FT4, CBCAD, LIPD, CMP #### [facility] [address], [place] [id number] Cholesterol in LDL [Mass/Vol] 128 mg/dL Normal [facility] Comment on above: Result Comment: LDL ATP III CLASSIFICATION LDL less than 100 mg/dl Optimal LDL 100-129 mg/dl Near or above optimal LDL 130-159 Borderline high LDL 160-189 High LDL greater than 189 mg/dl Very High Performed By: #### V ITD, TSH reflex FT4, CBCAD, LIPD, CMP #### [facility] [address], [place] [id number] Cholesterol in VLDL [Mass/Vol] 34 mg/dL Normal [facility] Comment on above: Performed By: #### V ITD, TSH reflex FT4, CBCAD, LIPD, CMP #### [facility] [address], [place] [id number] Cholesterol.total/C holesterol in HDL [Mass ratio] 4 {ratio} Normal [facility] Comment on above: Performed By: #### V ITD, TSH reflex FT4, CBCAD, LIPD, CMP #### [facility] [address], [place] [id number] Triglyceride [Mass/Vol] 171 mg/dL High 30-150 [facility] Comment on above: Result Comment: TRIG ATPIII CLASSIFICATIONS TRIG less than 150 mg/dl Normal TRIG 150-199 mg/dl Borderline High TRIG 200-500 mg/dl High TRIG greather than 500 mg/dl Very High Performed By: #### V ITD, TSH reflex FT4, CBCAD, LIPD, CMP #### [facility] [address], [place] [id number] TSH w/ Reflex to Free T4on 0 12-02-2021 TSH 2.760 uIU/mL Normal 0.400-4.500 [facility] [employer] Teacher Comment on above: Performed By: #### V ITD, TSH reflex FT4, CBCAD, LIPD, CMP #### [facility] [address], [place] [id number] Vitamin D 25-OHon 12-02-2021 VIT D 25 OH 56 ng/ml Normal >29 [facility] [employer] Teacher Comment on above: Result Comment: Mendy min D Status Deficiency <20 ng/mL Insufficiency 20-29 ng/mL Optimal 30-100 ng/mL Possible Toxicity >=150 ng/mL Performed By: #### V ITD, TSH reflex FT4, CBCAD, LIPD, CMP #### [facility] [address] [place], [place] [id number] Vital Signs Date Time Vital Sign Value Performing Clinician Facility 04-23-2024 10:18-0400 Body mass index (BMI) [Ratio] 36.11 kg/m2 [employer] DO Work Phone: [facility] 04-23-2024 10:18-0400 Body weight 98.43 kg Mahi Sowmya DO Work Phone: [facility] 04-23-2024 10:18-0400 Diastolic blood pressure 74 mm[Hg] Mahi Sowmya [employer] Work Phone: [facility] 04-23-2024 10:18-0400 Systolic blood pressure 118 mm[Hg] [employer] Work Phone: [facility] 03-26-2024 09:30-0400 Body mass index (BMI) [Ratio] 35.94 kg/m2 Elly Helm PA Work Phone: [facility] 03-26-2024 09:30-0400 Body weight 97.98 kg Elly Rowland PA Work Phone: [facility] 03-26-2024 09:30-0400 Diastolic blood pressure 70 mm[Hg] Elly Alicja PA Work Phone: [facility] 03-26-2024 09:30-0400 Systolic blood pressure 112 mm[Hg] Elly Alicja PA Work Phone: [facility] 02-27-2024 08:32-0400 Body mass index (BMI) [Ratio] 36.78 kg/m2 Elly Rowland PA Work Phone: [facility] 02-27-2024 08:32-0400 Body weight 100.25 kg Elly Alicja PA Work Phone: [facility] 02-27-2024 08:32-0400 Diastolic blood pressure 70 mm[Hg] Elly Alicja PA Work Phone: [facility] 02-27-2024 08:32-0400 Systolic blood pressure 110 mm[Hg] Elly Helm JEANNE Work Phone: [facility] 12-31-2023 09:35-0400 Body height 157.48 cm MD Avila Vieyra Work Phone: [facility] 12-31-2023 09:35-0400 Body mass index (BMI) [Ratio] 40.4 kg/m2 MD Avila Vieyra Work Phone: [facility] 12-31-2023 09:35-0400 Body weight 100.24 kg MD Avila Vieyra Work Phone: [facility] 12-31-2023 09:35-0400 Diastolic blood pressure 78 mm[Hg] MD Avila Vieyra Work Phone: [facility] 12-31-2023 09:35-0400 Heart rate 93 /min MD Avila Vieyra Work Phone: [facility] 12-31-2023 09:35-0400 Respiratory rate 18 /min MD Avila Vieyra Work Phone: [facility] 12-31-2023 09:35-0400 SaO2% (BldA) [Mass fraction] 96 % MD Avila Vieyra Work Phone: [facility] 12-31-2023 09:35-0400 Systolic blood pressure 114 mm[Hg] MD Avila Vieyra Work Phone: [facility] 11-27-2023 14:37-0400 Body height 157.48 cm MD Avila Vieyra Work Phone: [facility] 11-27-2023 14:37-0400 Body mass index (BMI) [Ratio] 41 kg/m2 MD Avila Vieyra Work Phone: [facility] 11-27-2023 14:37-0400 Body temperature 98.6 [degF] MD Avila Vieyra Work Phone: [facility] 11-27-2023 14:37-0400 Body weight 101.74 kg MD Avila Vieyra Work Phone: [facility] [place] 11-27-2023 14:37-0400 Diastolic blood pressure 86 mm[Hg] MD Avila Vieyra Work Phone: [facility] [place] 11-27-2023 14:37-0400 Heart rate 79 /min MD Avila Vieyra Work Phone: [facility] [place] 11-27-2023 14:37-0400 Respiratory rate 16 /min MD Avila Vieyra Work Phone: [facility] [place] 11-27-2023 14:37-0400 SaO2% (BldA) [Mass fraction] 99 % MD Avila Vieyra Work Phone: [facility] [place] 11-27-2023 14:37-0400 Systolic blood pressure 123 mm[Hg] MD Avila Vieyra Work Phone: [facility] [place] Encounters Encounter Date Encounter Type Care Provider Facility Start: 04-23-2024 End: 04-23-2024 Bamboo flowsheet Mahi Sowmya DO Work Phone: [facility] Start: 04-23-2024 End: 04-23-2024 Bamboo flowsheet Mahi Sowmya DO Work Phone: [facility] Start: 04-23-2024 End: 04-23-2024 Office outpatient visit 15 minutes Mahi Sowmya DO Work Phone: [facility] Comment on above: Weight gain; Encounter for weight management Start: 04-23-2024 End: 04-23-2024 ambulatory MAHI SOWMYA Not Available Start: 03-26-2024 End: 03-26-2024 Bamboo flowsheet Elly ANGEL Work Phone: [facility] Start: 03-26-2024 End: 03-26-2024 Bamboo flowsheet Elly ANGEL Work Phone: [facility] Start: 03-26-2024 End: 03-26-2024 ambulatory ELLY HELM Not Available Start: 03-26-2024 End: 03-26-2024 Office outpatient visit 15 minutes Elly Alicja PA Work Phone: [facility] Comment on above: Weight gain; Encounter for weight management Start: 02-27-2024 End: 02-27-2024 Bamboo flowsheet Elly Helm PA Work Phone: [facility] Start: 02-27-2024 End: 02-27-2024 Bamboo flowsheet Elly Helm PA Work Phone: [facility] Start: 02-27-2024 End: 02-27-2024 Office outpatient visit 15 minutes Elly Helm PA Work Phone: [facility] Comment on above: Encounter for weight management; Weight gain Start: 02-27-2024 End: 02-27-2024 ambulatory ELLY ALICJA Not Available Start: 01-24-2024 End: 01-24-2024 ambulatory ELLY ALICJA Not Available Start: 01-13-2024 End: 01-13-2024 ambulatory LEYLA BUSTILLOS Not Available Start: 12-31-2023 End: 12-31-2023 ambulatory MD Avila Vieyra Work Phone: [facility] Work Phone: Start: 12-31-2023 End: 12-31-2023 Patient encounter procedure MD Avila Vieyra Work Phone: [facility] Physician [facility] Work Phone: Start: 12-27-2023 End: 12-27-2023 ambulatory MAHI DENG Not Available Start: 11-27-2023 End: 11-27-2023 ambulatory MD Avila Vieyra Work Phone: [facility] Work Phone: Start: 11-27-2023 End: 11-27-2023 Patient encounter procedure MD Avila Vieyra Work Phone: [facility] Physician [facility] Work Phone: Start: 11-08-2023 End: 11-08-2023 ambulatory ELLY ALICJA Not Available Start: 11-04-2023 End: 11-04-2023 Departed Referred MD Avila Vieyra Work Phone: [facility] Start: 05-17-2023 End: 05-17-2023 ambulatory LEYLA BUSTILLOS Not Available Start: 09-21-2022 End: 09-21-[address] MAHI DENG . Facility: Start: 09-21-2022 End: 09-22-[address] MAHI DENG . Facility:[facility] Procedures Date Procedure Procedure Detail Performing Clinician Start: 11-08-2023 Microscopic observat ion [Identifier] in Cervix by Cyto stain Elly ANGEL Work Phone: Start: 10-26-2023 Mammography Elly ANGEL Work Phone: Plan of Treatment Date Care Activity Detail Author Start: 09-22-2027 Screening for malign ant neoplasm of cervix [facility] Start: 11-07-2026 Screening for malign ant neoplasm of cervix Pap Smear [facility] Start: 11-12-2024 End: 11-12-2024 Patient encounter procedure 11/12/2024 10:00 AM EDT Office Visit [facility] [address] [place] [address] Mahi Deng DO [address] [place], [place] [id number] [facility] Start: 10-25-2024 Screening for malign ant neoplasm of breast Mammogram [facility] Start: 04-23-2024 End: 04-23-2024 Patient encounter procedure [facility] Comment on above: Arrived Start: 03-26-2024 End: 03-26-2024 Patient encounter procedure 03/26/2024 8:50 AM EDT Office Visit [facility] [address] [place] [address] Elly Helm PA [address] [place], [place] [id number] [facility] Start: 03-04-2024 Influenza vaccination Influenz a Vaccine (#1) [facility] Start: 02-27-2024 End: 02-27-2024 Patient encounter procedure 02/27/2024 8:30 AM EDT Office Visit [facility] [address] [place] [id number] Elly Helm PA [address] [place] [address] Arrived [facility] Comment on above: Arrived [facility] Immunizations Immunization Date Immunization Notes Care Provider Fa cility 04-09-2009 influenza virus vacc ine, whole virus Elly ANGEL Work Phone: [facility] 04-09-2009 influenza virus vacc ine, unspecified formulation Elly ANGEL Work Phone: [facility] Payers Date Payer Category Payer [facility] BCBS [id number] 2021 Unknown BCBS BCBS [id number] 2021-Present [phone] [id number] [place], [place] [address] [id number] 1979 Unknown [id number]. [id number] 1979 Unknown [id number] [id number]. [id number] 1979 Unknown [id number] [id number]. 2.9 1979 Unknown [id number] [id number]. 2.9 1979 Unknown [id number] [id number]. 2.1258 1979 Unknown [id number] [id number]. 2.1258 1979 Unknown [id number] [id number]. 2.1258 1979 Unknown [id number] [id number]. 2.9 1979 Unknown [id number] [id number]. 2.1258 1979 Unknown [id number] [id number]. 2.9 1959 Unknown [id number] Social History Date Type Detail Facility Start: 11-27-2023 Tobacco smoking stat [facility] Never smoked tobacco (finding) [facility] [place] Start: 1980 Sex Assigned At Female F [facility] Start: 05-17-2023 Tobacco smoking stat [facility] Ex-smoker [facility] History of tobacco use Current smoker [facility] History of tobacco use Cigarette Smoker [facility] Start: 05-17-2023 Tobacco use and exposure Smoke less tobacco non-user [facility] Start: 02-27-2024 End: 03-26-2024 Alcoholic beverage intake Ex-drinker (finding) [facility] Start: 01-12-2024 End: 03-26-2024 Alcoholic beverage intake [facility] Start: 05-17-2023 End: 01-12-2024 [id number] Health Literacy [facility] Start: 12-21-2022 How often do you nee d to have someone help you when you read instructions, pamphlets, or other written material from your doctor or pharmacy [SILS] Never [facility] Do you belong to any clubs or organizations such as holiness groups, unions, fraternal or athletic groups, or school groups? No [facility] Are you now , , , , never or living with a partner? [facility] How often to you hav e a drink containing alcohol? Monthly or less [facility] How many standard dr inks containing alcohol do you have on a typical day? 3 or 4 [facility] How often do you hav e 6 or more drinks on 1 occasion? Less than monthly [facility] Do you feel stress - tense, restless, nervous, or anxious, or unable to sleep at night because your mind is troubled all the time - these days [OSQ] Not at all [facility] (I/We) worried wheth er (my/our) food would run out before (I/we) got money to buy more. Never true [facility] Start: 01-13-2024 Alcohol Comment Caffine: 2 cups romana y [facility] History of Present illness Narrative 04-23-2024 Nenita Duenas LPN - 04/23/2024 9:40 AM EDT Note Date & Type Note Facility 04-23-2024 History of Presen t illness Narrative Reason for Appointment: Patient ID: aga Davis is a 43 y.o. female who presents for Weight Gain (Pt present today for Adipex #5) Patient presents today for Weight Management Consult. MEDICATIONS Current Outpatient Medications Medication Instructions betamethasone valerate (Valisone) 0.1 % cream Topical, 2 times daily metFORMIN (GLUCOPHAGE) 500 mg, Oral, Nightly Multiple Vitamin (multivitamin) capsule 1 capsule, Oral, Daily phentermine (ADIPEX-P) 37.5 mg, Oral, Daily before breakfast phentermine (ADIPEX-P) 37.5 mg, Oral, Daily before breakfast phentermine (ADIPEX-P) 37.5 mg, Oral, Daily before breakfast ALLERGIES No Known Allergies PROBLEMS Active Ambulatory Problems Diagnosis Date Noted Abnormal weight gain 05/05/2023 Depression screening 05/05/2023 Excessive and frequent menstruation 05/05/2023 History of endometrial ablation 05/05/2023 Body mass index (BMI) 40.0-44.9, adult (CMS/HCC) 05/05/2023 Polycystic ovaries 05/05/2023 Resolved Ambulatory Problems Diagnosis Date Noted No Resolved Ambulatory Problems Past Medical History: Diagnosis Date Breast mass 09/2023 Menopause ovarian failure 06/2023 Menorrhagia with regular cycle Obesity (BMI 30-39.9) PCOS (polycystic ovarian syndrome) HISTORY PAST MEDICAL HISTORY SOCIAL HISTORY Past Medical History: Diagnosis Date Abnormal weight gain Breast mass 09/2023 Depression screening History of endometrial ablation Menopause ovarian failure 06/2023 Menorrhagia with regular cycle Obesity (BMI 30-39.9) PCOS (polycystic ovarian syndrome) Social History Tobacco Use Smoking status: Former Types: Cigarettes Smokeless tobacco: Never Vaping Use Vaping status: Never Used Substance Use Topics Alcohol use: Not Currently Alcohol/week: 4.0 standard drinks of alcohol Types: 4 Standard drinks or equivalent per week Comment: Caffine: 2 cups daily Drug use: Never FAMILY HISTORY No family history on file. SURGICAL HISTORY Past Surgical History: Procedure Laterality Date BI US GUIDED BREAST LOCALIZATION AND BIOPSY RIGHT Right 11/09/2023 BI US GUIDED BREAST LOCALIZATION AND BIOPSY RIGHT BREAST BIOPSY 11/04/2023 SECTION, LOW TRANSVERSE 2007 DILATION AND CURETTAGE 2000 DILATION AND CURETTAGE OF UTERUS 2000 ENDOMETRIAL ABLATION 2019 RI LAP, SURG, RADFREQ ABLATION OF UTERINE FIBROID(S), INC INTRAOP GUIDE-MONITOR 2019 uterine ablation TUBAL LIGATION 2019 REVIEW OF SYSTEMS Review of Systems: Review of Systems All other systems reviewed and are negative. OBJECTIVE Objective: Physical Exam Constitutional: Appearance: Normal appearance. She is well-developed. Cardiovascular: Rate and Rhythm: Normal rate and regular rhythm. Pulmonary: Effort: Pulmonary effort is normal. Breath sounds: Normal breath sounds. Abdominal: General: Bowel sounds are normal. There is no distension. Palpations: Abdomen is soft. Tenderness: There is no abdominal tenderness. There is no guarding or rebound. Musculoskeletal: General: No swelling. Normal range of motion. Right lower leg: No edema. Left lower leg: No edema. Neurological: Mental Status: She is alert and oriented to person, place, and time. Skin: General: Skin is warm and dry. Psychiatric: Mood and Affect: Mood normal. Behavior: Behavior normal. Vitals and nursing note reviewed. Exam conducted with a straight ruling machine operator present. Vitals: Estimated body mass index is 36.11 kg/m as calculated from the following: Height as of 01/13/24: 5' 5 . Weight as of this encounter: 217 lb. BP: 118/74 No LMP recorded. ASSESSMENT & PLAN ICD-10-CM 1. Weight gain R63.5 2. Encounter for weight management Z76.89 phentermine (Adipex-P) 37.5 MG tablet Patient presents for Adipex and 90 day prescription written. Patient to take Metformin 500mg not ER due to not tolerating ER well. Patient to return to clinic in 5 months for weight management. Documented by Nenita Duenas LPN on behalf of: Mahi Deng DO documented in this encounter [facility] History of Present illness Narrative 03-26-2024 JEANNE Peñaloza - 03/26/2024 8:50 AM EDT Note Date & Type Note Facility 03-26-2024 History of Presen t illness Narrative Reason for Appointment: Patient ID: aga Davis is a 43 y.o. female who presents for Weight Management Patient presents today for Weight Management Consult. MEDICATIONS Current Outpatient Medications Medication Instructions betamethasone valerate (Valisone) 0.1 % cream Topical, 2 times daily metFORMIN (GLUCOPHAGE) 500 mg, Oral, Nightly Multiple Vitamin (multivitamin) capsule 1 capsule, Oral, Daily phentermine (ADIPEX-P) 37.5 mg, Oral, Daily before breakfast phentermine (ADIPEX-P) 37.5 mg, Oral, Daily before breakfast ALLERGIES No Known Allergies PROBLEMS Active Ambulatory Problems Diagnosis Date Noted Abnormal weight gain 05/05/2023 Depression screening 05/05/2023 Excessive and frequent menstruation 05/05/2023 History of endometrial ablation 05/05/2023 Body mass index (BMI) 40.0-44.9, adult ([facility]) 05/05/2023 Polycystic ovaries 05/05/2023 Resolved Ambulatory Problems Diagnosis Date Noted No Resolved Ambulatory Problems Past Medical History: Diagnosis Date Breast mass 09/2023 Menopause ovarian failure 06/2023 Menorrhagia with regular cycle Obesity (BMI 30-39.9) PCOS (polycystic ovarian syndrome) HISTORY PAST MEDICAL HISTORY SOCIAL HISTORY Past Medical History: Diagnosis Date Abnormal weight gain Breast mass 09/2023 Depression screening History of endometrial ablation Menopause ovarian failure 06/2023 Menorrhagia with regular cycle Obesity (BMI 30-39.9) PCOS (polycystic ovarian syndrome) Social History Tobacco Use Smoking status: Former Types: Cigarettes Smokeless tobacco: Never Vaping Use Vaping status: Never Used Substance Use Topics Alcohol use: Not Currently Alcohol/week: 4.0 standard drinks of alcohol Types: 4 Standard drinks or equivalent per week Comment: Caffine: 2 cups daily Drug use: Never FAMILY HISTORY No family history on file. SURGICAL HISTORY Past Surgical History: Procedure Laterality Date BI US GUIDED BREAST LOCALIZATION AND BIOPSY RIGHT Right 11/09/2023 BI US GUIDED BREAST LOCALIZATION AND BIOPSY RIGHT BREAST BIOPSY 11/04/2023 SECTION, LOW TRANSVERSE 2007 DILATION AND CURETTAGE 2000 DILATION AND CURETTAGE OF UTERUS 2000 ENDOMETRIAL ABLATION 2019 RI LAP, SURG, RADFREQ ABLATION OF UTERINE FIBROID(S), INC INTRAOP GUIDE-MONITOR 2019 uterine ablation TUBAL LIGATION 2019 REVIEW OF SYSTEMS Review of Systems: Review of Systems Constitutional: Negative. HENT: Negative. Eyes: Negative. Respiratory: Negative. Cardiovascular: Negative. Gastrointestinal: Negative. Genitourinary: Negative. Musculoskeletal: Negative. Skin: Negative. Neurological: Negative. All other systems reviewed and are negative. Hematological: Negative. Endocrine: Negative. Allergic/Immunologic: Negative. OBJECTIVE Objective: Physical Exam Constitutional: Appearance: Normal appearance. She is normal weight. HENT: Head: Normocephalic. Cardiovascular: Rate and Rhythm: Normal rate. Pulses: Normal pulses. Pulmonary: Effort: Pulmonary effort is normal. Breath sounds: Normal breath sounds. Abdominal: Palpations: Abdomen is soft. Musculoskeletal: General: Normal range of motion. Neurological: General: No focal deficit present. Mental Status: She is alert and oriented to person, place, and time. Psychiatric: Mood and Affect: Mood normal. Behavior: Behavior normal. Thought Content: Thought content normal. Judgment: Judgment normal. Vitals and nursing note reviewed. Vitals: Estimated body mass index is 35.94 kg/m as calculated from the following: Height as of 01/13/24: 5' 5 . Weight as of this encounter: 216 lb. BP: 112/70 No LMP recorded. ASSESSMENT & PLAN ICD-10-CM 1. Weight gain R63.5 2. Encounter for weight management Z76.89 phentermine (Adipex-P) 37.5 MG tablet Patient presents today for prescription. Patient desires additional weigh loss and she is currently taking metformin along with working out to achieve further results. The possibility of Ozempic for future use has been discussed. Weight and blood pressure has been captured and it has been discussed/reiterated the importance of keeping a food journal, proper nutrition/diet, and exercise regimen. Patient verbalized understanding. Patient has not lost more than 5% of her initial body weight Patient states she was down to 212 earlier this weekend and then began to retain water due to menstral cycle. Patient advised she will need to show more of a loss in next month in order to continue with prescription. Patient agrees with plan of care Follow Up: Patient is to return to the office in 1 month for further evaluation to assess patient progress. Weight and blood pressure will need to be obtained in order for patient to receive 4th Adipex prescription. Documented by JEANNE Peñaloza on behalf of: JEANNE Peñaloza documented in this encounter [facility] History of Present illness Narrative 02-27-2024 JEANNE Peñaloza - 02/27/2024 8:30 AM EDT Note Date & Type Note Facility 02-27-2024 History of Presen t illness Narrative Reason for Appointment: Patient ID: aga Davis is a 43 y.o. female who presents for encounter for weight loss Patient presents today for Weight Management Consult. MEDICATIONS Current Outpatient Medications Medication Instructions betamethasone valerate (Valisone) 0.1 % cream Topical, 2 times daily metFORMIN (GLUCOPHAGE) 500 mg, Oral, Nightly Multiple Vitamin (multivitamin) capsule 1 capsule, Oral, Daily phentermine (ADIPEX-P) 37.5 mg, Oral, Daily before breakfast ALLERGIES No Known Allergies PROBLEMS Active Ambulatory Problems Diagnosis Date Noted Abnormal weight gain 05/05/2023 Depression screening 05/05/2023 Excessive and frequent menstruation 05/05/2023 History of endometrial ablation 05/05/2023 Body mass index (BMI) 40.0-44.9, adult ([facility]) 05/05/2023 Polycystic ovaries 05/05/2023 Resolved Ambulatory Problems Diagnosis Date Noted No Resolved Ambulatory Problems Past Medical History: Diagnosis Date Breast mass 09/2023 Menopause ovarian failure 06/2023 Menorrhagia with regular cycle Obesity (BMI 30-39.9) PCOS (polycystic ovarian syndrome) HISTORY PAST MEDICAL HISTORY SOCIAL HISTORY Past Medical History: Diagnosis Date Abnormal weight gain Breast mass 09/2023 Depression screening History of endometrial ablation Menopause ovarian failure 06/2023 Menorrhagia with regular cycle Obesity (BMI 30-39.9) PCOS (polycystic ovarian syndrome) Social History Tobacco Use Smoking status: Former Types: Cigarettes Smokeless tobacco: Never Vaping Use Vaping status: Never Used Substance Use Topics Alcohol use: Not Currently Alcohol/week: 4.0 standard drinks of alcohol Types: 4 Standard drinks or equivalent per week Comment: Caffine: 2 cups daily Drug use: Never FAMILY HISTORY No family history on file. SURGICAL HISTORY Past Surgical History: Procedure Laterality Date BI US GUIDED BREAST LOCALIZATION AND BIOPSY RIGHT Right 11/09/2023 BI US GUIDED BREAST LOCALIZATION AND BIOPSY RIGHT BREAST BIOPSY 11/04/2023 SECTION, LOW TRANSVERSE 2007 DILATION AND CURETTAGE 2000 DILATION AND CURETTAGE OF UTERUS 2000 ENDOMETRIAL ABLATION 2019 RI LAP, SURG, RADFREQ ABLATION OF UTERINE FIBROID(S), INC INTRAOP GUIDE-MONITOR 2019 uterine ablation TUBAL LIGATION 2019 REVIEW OF SYSTEMS Review of Systems: Review of Systems Constitutional: Negative. HENT: Negative. Eyes: Negative. Respiratory: Negative. Cardiovascular: Negative. Gastrointestinal: Negative. Genitourinary: Negative. Musculoskeletal: Negative. Skin: Negative. Neurological: Negative. All other systems reviewed and are negative. Hematological: Negative. Endocrine: Negative. Allergic/Immunologic: Negative. OBJECTIVE Objective: Physical Exam Constitutional: Appearance: Normal appearance. She is normal weight. HENT: Head: Normocephalic. Cardiovascular: Rate and Rhythm: Normal rate. Pulses: Normal pulses. Pulmonary: Effort: Pulmonary effort is normal. Breath sounds: Normal breath sounds. Abdominal: Palpations: Abdomen is soft. Musculoskeletal: General: Normal range of motion. Neurological: General: No focal deficit present. Mental Status: She is alert and oriented to person, place, and time. Psychiatric: Mood and Affect: Mood normal. Behavior: Behavior normal. Thought Content: Thought content normal. Judgment: Judgment normal. Vitals and nursing note reviewed. Vitals: Estimated body mass index is 36.78 kg/m as calculated from the following: Height as of 01/13/24: 5' 5 . Weight as of this encounter: 221 lb. BP: 110/70 No LMP recorded. ASSESSMENT & PLAN ICD-10-CM 1. Encounter for weight management Z76.89 metFORMIN (Glucophage) 500 MG tablet phentermine (Adipex-P) 37.5 MG tablet 2. Weight gain R63.5 metFORMIN (Glucophage) 500 MG tablet Patient presents today for 3rd Adipex prescription. Patient desires additional weigh loss and she is currently taking metformin along with working out to achieve further results. The possibility of Ozempic for future use has been discussed. Weight and blood pressure has been captured and it has been discussed/reiterated the importance of keeping a food journal, proper nutrition/diet, and exercise regimen. Patient verbalized understanding. Patient has not lost more than 5% of her initial body weight Follow Up: Patient is to return to the office in 1 month for further evaluation to assess patient progress. Weight and blood pressure will need to be obtained in order for patient to receive 4th Adipex prescription. Documented by JEANNE Peñaloza on behalf of: JEANNE Peñaloza documented in this encounter [facility] Evaluation note Note Date & Type Note Facility Evaluation note Diagnosis Onset Date Poison vincenzo [facility] Work Phone: Evaluation note Note Date & Type Note Facility Evaluation note Diagnosis Onset Date Poison vincenzo acute Contact dermatitis [facility] Work Phone: Evaluation note Note Date & Type Note Facility Evaluation note Diagnosis Weight gain Other symptoms concerning nutrition, metabolism, and development Encounter for weight management documented in this encounter [facility] Evaluation note Note Date & Type Note Facility Evaluation note Diagnosis Encounter for weight management Weight gain Other symptoms concerning nutrition, metabolism, and development documented in this encounter [facility] Evaluation note Note Date & Type Note Facility Evaluation note Diagnosis Weight gain Other symptoms concerning nutrition, metabolism, and development Encounter for weight management documented in this encounter [facility] Summary Purpose Family History No Family History Records FoundNo Family History Records FoundNo Family History Records Found Advance Directives Advance Directive Response Recorded Date/ Time Advance Directives No November 26 2:30pm Additional Source Comments INFORMATION SOURCE (unrecogn ized section and content) DATE CREATED AUTHOR 12/03/2021 [facility] dical Specialist DATE CREATED AUTHOR AUTHOR'S ORGANIZ ATION 10/01/2022 [facility] pital DATE CREATED AUTHOR AUTHOR'S ORGANIZ ATION 04/24/2024 [facility] dical Specialists EPIC Care Teams (unrecognized sec tion and content) Team Status: Active Member Role Status Dates Lucy Snowden MD Primary Care Provide r Active Team Status: Inactive Member Role Status Dates Avila Vieyra MD Attending Provider Active Star t: November 04, 2023 End: November 04, 2023 Team Status: Inactive Member Role Status Dates Pam Cordoba APRN Attending Provider Active S tart: November 27, 2023 End: November 27, 2023 Lucy Snowden MD Primary Care Provide r Active Start: November 27, 2023 End: November 27, 2023 Team Status: Inactive Member Role Status Dates Lucy Snowden MD Primary Care Provide r Active Start: December 31, 2023 End: December 31, 2023 Siobhan Salmon APRN Attending Provider Active Start: December 31, 2023 End: December 31, 2023 Wedding Coordinator Relationship Specialty Start Date End Date Lucy Snowden MD [address] [place] [address] PCP - General 12/21/22 Leyla Bustillos NP [address] [place] [address] PCP - [place] [employer] 03/04/24 Wedding Coordinator Relationship Specialty Start Date End Date Lucy Snowden MD [address] [place] [address] PCP - General 12/21/22 Leyla Bustillos NP [address] [place] [address] PCP - [place] 03/04/24 Wedding Coordinator Relationship Specialty Start Date End Date Lucy Snowden MD [address] [place] [address] PCP - General 12/21/22 Wedding Coordinator Relationship Specialty Start Date End Date Lucy Snowden MD [address] [place] [address] PCP - General 12/21/22 Wedding Coordinator Relationship Specialty Start Date End Date Lucy Snowden MD [address] [place], [place] [id number] PCP - General 12/21/22 Goals (unrecognized section and content) Goals may be documented in a n alternate sectionGoals may be documented in an alternate section Reason for Visit (unrecogniz ed section and content) Reason Comments Weight Gain Pt present today for Adipex #5 Reason Comments encounter for weight loss Reason Comments Weight Management FOR RECORDS PERTAINING TO PATIENTS WHO ARE [...] BE BASED ON THE PRIMARY CLINICAL RECORDS. [facility] provides no warranty or guarantee of the accuracy or completeness of information in this document.
== END 2024-11-12 07:17 | disposition home or self-care (01) ==
LOC: MAMMO 07:18
PROVIDERS: PCP Family Medicine; Visit Provider Obstetrics & Gynecology
DX: Z12.31 Encounter for screening mammogram for malignant neoplasm of breast (principal)
CPT/HCPCS: 77063; 77067

== ENCOUNTER 2024-11-12 16:23 | Outpatient (REF) | payer BC, SELFPAY ==
--- OUTSIDE RECORDS SUMMARY | 2024-11-12 16:52 | XMS_ITS | CCD ---
Author Organization [facility] Care Team Providers Care Membership Solicitor Name Role Phone SOWMYA ., DR CHAMPAGNE Admitting Unavailable SOWMYA ., DR CHAMPAGNE Consulting Unavailable SOWMYA ., DR CHAMPAGNE Attending Unavailable VALENTIN, DR GIBSON Primary Care Unavailable AMINA, DR DAMIAN Anaya Consulting Unavailable SOWMYA ., DR CHAMPAGNE Admitting Unavailable SOWMYA ., DR CHAMPAGNE Consulting Unavailable SOWMYA ., DR CHAMPAGNE Attending Unavailable VALENTIN, DR GIBSON Primary Care Unavailable MD Avila Vieyra V Attending Provider Lucy Hanson MD Primary Care Provider Tressa MANAGER REVENUE, Leyla Rascon Unavailable LEYLA BUSTILLOS Attending Unavailab ELLY Hoffman Attending Unavailable MAHI DEGN Attending Unavailable LEYLA BUSTILLOS Attending Unavailab ELLY Hoffman Attending Unavailable ELLY HELM Attending Unavailable ELLY HELM Attending Unavailable MAHI DENG Attending Unavailable Medications Current Medications Medication Drug Class(es) Dates Sig (Normalized) Sig (Original) betamethasone 1 mg/ml topical cream (13 sources) Corticosteroid Start: 01-13-2024 betamethasone valerate (Valisone) 0.1 % cream Indications: Poison vincenzo Apply topically 2 (two) times a day 15 g 2 01/13/2024 Active metFORMIN hydrochloride 500 mg oral tablet (18 sources) Biguanide Start: 02-27-2024 End: 05-23-2024 take 1 tablet by mouth in the morning metFORMIN (Glucophage) 500 MG tablet Indications: Weight gain , Encounter for weight management Take 1 tablet (500 mg) by mouth in the morning and 1 tablet (500 mg) in the evening. Take with meals. 60 tablet 11 04/23/2024 Active Start: 12-31-2023 take 500 mg by [...] 12/21/2023 02/27/2024 Discontinued Multiple Vitamin (multivitamin) capsule (13 sources) take 1 capsule by mouth in the morning Multiple Vitamin (multivitamin) capsule Take 1 capsule by mouth in the morning. Active phentermine hydrochloride 37.5 mg oral tablet (20 sources) Sympathomimetic Amine Anorectic Start: End: 025 take 1 tablet by mouth before mealtime phentermine (Adipex-P) 37.5 MG tablet Indications: Encounter for weight management Take 1 tablet (37.5 mg) by mouth in the morning. Take before meals. 90 tablet 04/23/2024 Active Start: 12-31-2023 take 37.5 mg by [...] plants, except food] 11-27-2023 Episodic Menstrual disorders (13 sources) Excessive and frequent menstruation; Translations: [Excessive and frequent menstruation with regular cycle] Onset: 05-05-2023 05-05-2023 Chronic Other endocrine disorders (1 source) Polycystic ovary syndrome; Translations: [Polycystic ovarian syndrome] 12-31-2023 Chronic Other endocrine disorders (13 sources) Polycystic ovary; Translations: [Polycystic ovarian syndrome] Onset: 05-05-2023 05-05-2023 Chronic Other nutritional; endocrine; and metabolic disorders (13 sources) Body mass index 40+ - severely obese; Translations: [Body mass index (BMI) 40.0-44.9, adult] Onset: 05-05-2023 05-05-2023 Chronic Other nutritional; endocrine; and metabolic disorders (4 sources) Weight increased; Translations: [Abnormal weight gain] 04-23-2024 Episodic Other screening for suspected conditions (not mental disorders or infectious disease) (11 sources) Encounter for screening for malignant neoplasm of cervix; Translations: [Encounter for screening mammogram for malignant neoplasm of breast] Onset: 09-21-2022 Episodic Past or Other Problems Problem Classification Problem Date Documented Date Episodic/Chronic Other nutritional; endocrine; and metabolic disorders (13 sources) Abnormal weight gain; Translations: [Abnormal weight gain] Onset: 05-05-2023 05-05-2023 Episodic Other nutritional; endocrine; and metabolic disorders (2 sources) Weight gain; Translations: [Abnormal weight gain] 02-27-2024 Episodic Residual codes; unclassified (13 sources) History of endometrial ablation; Translations: [Other specified postprocedural states] Onset: 05-05-2023 05-05-2023 Episodic Screening and history of mental health and substance abuse codes (19 sources) Patient encounter status; Translations: [Encounter for screening for depression] Onset: 05-05-2023 05-05-2023 Episodic Results Test Name Value Interpretation Reference Range Facility MM TOMOSYNTHESIS SCREENING B Ion 11-12-2024 [place] [address] Mammography Report Signed Patient: AGA DAVIS MR#: [id number] : 1980 Acct:[id number] Age/Sex: 44 / F ADM Date: 11/12/24 Loc: MAMMO Attending Dr: Mahi Deng D.O. Ordering Physician: Mahi Deng D.O. Results: Date of Service: 11/12/24 Follow Up: Procedure(s): MM tomosynthesis screening BI Accession Number(s): [id number] cc: Mahi Deng D.O.; LUCY HANSON Patient Name: AGA DAVIS MR#: [id number] : 1980 Exam Date: 11/12/2024 Ordering Doctor: DR MAHI DENG . RADIOLOGY REPORT PROCEDURE: MM TOMOSYNTHESIS SCREENING BI COMPARISON: US BREAST RT LIMITED, 10/26/2023. MM POST BIOPSY RT, 11/04/2023. MM DIAGNOSTIC MAMMO UNILAT RT, 10/26/2023. MM TOMOSYNTHESIS SCREENING BI, 10/11/2023. MG MAMM SCREEN 3D CHASIDY CAD, 09/21/2022. INDICATIONS: Screening mammogram Calculator Name NCI Breast Cancer Risk Assessment Tool 5 Year Breast Cancer Risk 2.70% Lifetime Breast Cancer Risk 17.80% Personal Breast Cancer No Personal Ovarian Cancer No Treatments None Family Cancers None LOCATION: [facility] BREAST COMPOSITION: There are scattered areas of fibroglandular density. FINDINGS: DIAGNOSTIC CATEGORY 1--NEGATIVE. RIGHT BREAST: No significant suspicious finding. Previously biopsied mass is once again noted. LEFT BREAST: No significant suspicious finding. RECOMMENDATIONS: ROUTINE MAMMOGRAM AND CLINICAL EVALUATION IN 12 MONTHS. PLEASE NOTE: Dictated by: Augusto Rodney DO on 11/12/2024 at 15:23 Approved by: Augusto Rodney DO on 11/12/2024 at 15:35 Dictated By: Augusto Rodney M.D. Signed By: 11/12/24 1536 DD/ 1535 TD/TT: Immigration Judge: [facility] Radiology, Radiologist, MD - 11/12/2024 [place] [address] Mammography Report Signed Patient: AGA DAVIS MR#: [id number] : 1980 Acct:[id number] Age/Sex: 44 / F ADM Date: 11/12/24 Loc: MAMMO Attending Dr: Mahi Deng D.O. Ordering Physician: Mahi Deng D.O. Results: Date of Service: 11/12/24 Follow Up: Procedure(s): MM tomosynthesis screening BI Accession Number(s): [id number] cc: Mahi Deng D.O.; LUCY HANSON Patient Name: AGA DAVIS MR#: [id number] : 1980 Exam Date: 11/12/2024 Ordering Doctor: DR MAHI DENG . RADIOLOGY REPORT PROCEDURE: MM TOMOSYNTHESIS SCREENING BI COMPARISON: US BREAST RT LIMITED, 10/26/2023. MM POST BIOPSY RT, 11/04/2023. MM DIAGNOSTIC MAMMO UNILAT RT, 10/26/2023. MM TOMOSYNTHESIS SCREENING BI, 10/11/2023. MG MAMM SCREEN 3D CHASIDY CAD, 09/21/2022. INDICATIONS: Screening mammogram Calculator Name NCI Breast Cancer Risk Assessment Tool 5 Year Breast Cancer Risk 2.70% Lifetime Breast Cancer Risk 17.80% Personal Breast Cancer No Personal Ovarian Cancer No Treatments None Family Cancers None LOCATION: [facility] BREAST COMPOSITION: There are scattered areas of fibroglandular density. FINDINGS: DIAGNOSTIC CATEGORY 1--NEGATIVE. RIGHT BREAST: No significant suspicious finding. Previously biopsied mass is once again noted. LEFT BREAST: No significant suspicious finding. RECOMMENDATIONS: ROUTINE MAMMOGRAM AND CLINICAL EVALUATION IN 12 MONTHS. PLEASE NOTE: Dictated by: Augusto Rodney DO on 11/12/2024 at 15:23 Approved by: Augusto Rodney DO on 11/12/2024 at 15:35 Dictated By: Augusto Rodney M.D. Signed By: 11/12/24 1536 DD/ 1535 TD/TT: Immigration Judge: [facility] Radiology Study observation (narrative) [facility] MM TOMOSYNTHESIS SCREENING B IOrdered By: Radiologist Radiology on 11-12-2024 [facility] [employer] Work Phone: Urinalysis macro (dipstick) panel (U)on 11-12-2024 Bilirubin, UA Negative Negative - 4(70) +++ mg/dL [facility] Blood, UA Negative Negative - 50 Petey/mcL [facility] Clarity, UA Clear [facility] c-crowdla re Color, UA Yellow [facility] c-crowduc [facility] e Glucose, UA Negative Negative - 2000(110) ++++ mg/dL [facility] Interpretation and review of laboratory results Normal [facility] Ketones, UA Negative Negative - 160(16) ++++ mg/dL [facility] Leukocytes, UA Negative Negative - 500+++ Bernie/mcL [facility] Nitrite, UA Negative Negative - Positive [facility] pH, UA 6 5 - 9 [facility] e Protein, UA Negative Negative - 2000(20) ++++ mg/dL [facility] Spec Grav, UA 1.02 1 - 1.03 [facility] Urobilinogen, UA 0.2 0.2 - 12 mg/dL [facility] PAP ACOG PANEL 2: 30 to 65on 09-28-2022 . . Normal [facility] Comment on above: Result Comment: Perf ormed at: WB Performed By: #### [id number] #### [facility] [address] [address] [address] Allan Flowers Age Gdln ACOG Testing 30-65 [facility] Comment on above: Performed By: #### [id number] #### [facility] [address] [address] [address] Allan Flowers DIAGNOSIS: Comment [facility] Comment on above: Result Comment: NEGA TIVE FOR INTRAEPITHELIAL LESION OR MALIGNANCY. Performed at: WB Performed By: #### [id number] #### [facility] [address] [address] [address] Allan Flowers HPV Aptima Negative Normal [facility] Comment on above: Result Comment: This nucleic acid amplification test detects fourteen high-risk HPV types (16,18,31,33,35,39,45,51,52,56,58,59,66,68) without differentiation. Performed at: =G Performed By: #### 4 [id number] #### [facility] [address] [address] [address] Allan Flowers HPV Genotype Reflex Comment Normal [facility] Comment on above: Result Comment: Crit eria not met, HPV Genotype not performed. Performed at: WB Performed By: #### [id number] #### [facility] [address] [address] [address] Allan Flowers Methodology: Comment [facility] Comment on above: Result Comment: This liquid based ThinPrep(R) pap test was screened with the use of an image guided system. Performed at: WB Performed By: #### [id number] #### [facility] [address] [place] [address] Dr. Allan Flowres Note: Comment Normal [facility] Comment on above: Result Comment: The Pap smear is a screening test designed to aid in the detection of premalignant and malignant conditions of the uterine cervix. It is not a diagnostic procedure and should not be used as the sole means of detecting cervical cancer. Both false-positive and false-negative reports do occur. . Performed at: WB Performed By: #### [id number] #### [facility] [address] [address] [address] Allan Flowers Performed by: Comment Normal [facility] Comment on above: Result Comment: Jacqueline Hartman, Supervisory Washer Machine (ASCP) Performed at: WB Performed By: #### [id number] #### [facility] [address] [place] [address] Dr. Allan Flowers Specimen adequacy: Comment Normal [facility] Comment on above: Result Comment: Sati sfactory for evaluation. No endocervical component is identified. Performed at: WB Performed By: #### [id number] #### [facility] [address] [place] [address] Dr. Allan Flowers MG MAMM SCREEN 3D CHASIDY CADon 09-21-2022 MG MAMM SCREEN 3D CHASIDY CAD Patient: AGA DAVIS Exam Date: 09/21/2022 : 1980 Gender:F Ordering : DR MAHI DENG . Admission #: [id number] Family : Order #: [id number] CLICK HERE TO VIEW EXAM RADIOLOGY REPORT PROCEDURE: MAMMOGRAM SCREENING 3D BILATERAL CAD COMPARISON: MG MAMM SCREEN 3D CHASIDY CAD, 10/29/2020. INDICATIONS: Screening mammography Calculator Name NCI Breast Cancer Risk Assessment Tool 5 Year Breast Cancer Risk 0.90% Lifetime Breast Cancer Risk 11.80% Personal Breast Cancer No Personal Ovarian Cancer No Treatments None Family Cancers None LOCATION: [facility] BREAST COMPOSITION: Scattered areas fibroglandular density. [...] Wasserman M.D. on 09/22/2022 at 08:33 Normal [facility] Complete Blood Count with Au to Diffon 12-02-2021 Basophils (Bld) [#/Vol] 0.06 10*3/uL Normal 0.00-0.20 [facility] Specialist Comment on above: Performed By: #### V ITD, TSH reflex FT4, CBCAD, LIPD, CMP #### [facility] [address] [place], [place] [id number] Basophils/100 WBC (Bld) 0.8 % Normal [facility] Comment on above: Performed By: #### V ITD, TSH reflex FT4, CBCAD, LIPD, CMP #### [facility] [address] [place], [place] [id number] Eosinophils (Bld) [#/Vol] 0.31 10*3/uL Normal 0.02-0.50 [facility] Specialist Comment on above: Performed By: #### V ITD, TSH reflex FT4, CBCAD, LIPD, CMP #### [facility] [address] [place], [place] [id number] Eosinophils/100 WBC (Bld) 4.4 % Normal [facility] Comment on above: Performed By: #### V ITD, TSH reflex FT4, CBCAD, LIPD, CMP #### [facility] [address] [place], [place] [id number] Erythrocyte distribution width (RBC) [Ratio] 13.3 % Normal 11.0-15.0 [facility] Specialist Comment on above: Performed By: #### V ITD, TSH reflex FT4, CBCAD, LIPD, CMP #### [facility] [address] [place], [place] [id number] Hematocrit (Bld) [Volume fraction] 36.2 % Normal 35.0-47.0 [facility] Specialist Comment on above: Performed By: #### V ITD, TSH reflex FT4, CBCAD, LIPD, CMP #### [facility] [address] [place], [place] [id number] Hemoglobin (Bld) [Mass/Vol] 11.3 g/dL Low 11.6-15.5 [facility] Specialist Comment on above: Performed By: #### V ITD, TSH reflex FT4, CBCAD, LIPD, CMP #### [facility] [address] [place], [place] [id number] Lymphocytes (Bld) [#/Vol] 1.8 10*3/uL Normal 0.9-3.9 [facility] Specialist Comment on above: Performed By: #### V ITD, TSH reflex FT4, CBCAD, LIPD, CMP #### [facility] [address] [place], [place] [id number] Lymphocytes/100 WBC (Bld) 25.5 % Normal [facility] Specialist Comment on above: Performed By: #### V ITD, TSH reflex FT4, CBCAD, LIPD, CMP #### [facility] [address] [place], [place] [id number] MCH (RBC) [Entitic mass] 27.2 pg Normal 27.0-33.0 [facility] Specialist Comment on above: Performed By: #### V ITD, TSH reflex FT4, CBCAD, LIPD, CMP #### [facility] [address] [place], [place] [id number] MCHC (RBC) [Mass/Vol] 31.2 g/dL Low 32.0-36.0 [facility] Specialist Comment on above: Performed By: #### V ITD, TSH reflex FT4, CBCAD, LIPD, CMP #### [facility] [address] [place], [place] [id number] MCV (RBC) [Entitic vol] 87 fL Normal 80-100 [facility] [employer] Coordinator Comment on above: Performed By: #### V ITD, TSH reflex FT4, CBCAD, LIPD, CMP #### [facility] [address] [place], [place] [id number] Monocytes (Bld) [#/Vol] 0.5 10*3/uL Normal 0.2-0.9 [facility] Comment on above: Performed By: #### V ITD, TSH reflex FT4, CBCAD, LIPD, CMP #### [facility] [address] [place], [place] [id number] Monocytes/100 WBC (Bld) 6.5 % Normal [facility] Comment on above: Performed By: #### V ITD, TSH reflex FT4, CBCAD, LIPD, CMP #### [facility] [address] [place], [place] [id number] Neutrophils (Bld) [#/Vol] 4.4 10*3/uL Normal 1.5-7.8 [facility] Specialist Comment on above: Performed By: #### V ITD, TSH reflex FT4, CBCAD, LIPD, CMP #### [facility] [address] [place], [place] [id number] Neutrophils/100 WBC (Bld) 62.4 % Normal [facility] Comment on above: Performed By: #### V ITD, TSH reflex FT4, CBCAD, LIPD, CMP #### [facility] [address] [place], [place] [id number] Platelet mean volume (Bld) [Entitic vol] 11.40 fL Normal 7.50-12.50 [facility] Comment on above: Performed By: #### V ITD, TSH reflex FT4, CBCAD, LIPD, CMP #### [facility] [address] [place], [place] [id number] Platelets (Bld) [#/Vol] 309 10*3/uL Normal 140-400 [facility] Specialist Comment on above: Performed By: #### V ITD, TSH reflex FT4, CBCAD, LIPD, CMP #### [facility] [address] [place], [place] [id number] RBC (Bld) [#/Vol] 4.16 10*6/uL Normal 3.90-5.20 [facility] Specialist Comment on above: Performed By: #### V ITD, TSH reflex FT4, CBCAD, LIPD, CMP #### [facility] [address] [place], [place] [id number] RDW-SD 42.5 fL Normal 37.0-50.0 [facility] [employer] Coordinator Comment on above: Performed By: #### V ITD, TSH reflex FT4, CBCAD, LIPD, CMP #### [facility] [address] [place], [place] [id number] WBC (Bld) [#/Vol] 7.1 10*3/uL Normal 3.8-11.0 [facility]ach Bottomlee ann rn [place] [facility] [employer] Coordinator Comment on above: Performed By: #### V ITD, TSH reflex FT4, CBCAD, LIPD, CMP #### [facility] [address] [place], [place] [id number] Comprehensive Metabolic Pane [facility] 12-02-2021 Albumin [Mass/Vol] 4.5 g/dL Normal 3.6-5.1 [place] [facility] [place] [facility] [employer] Coord[facility] Comment on above: Performed By: #### V ITD, TSH reflex FT4, CBCAD, LIPD, CMP #### [facility] [address] [place], [place] [id number] Albumin/Globulin [Mass ratio] 2.1 {ratio} Normal 1.0-2.5 [facility] Coordinator Comment on above: Performed By: #### V ITD, TSH reflex FT4, CBCAD, LIPD, CMP #### [facility] [address] [place] [address], [place] [id number] ALP [Catalytic activity/Vol] 70 U/L Normal 35-119 [facility] [employer] Coordinator Comment on above: Performed By: #### V ITD, TSH reflex FT4, CBCAD, LIPD, CMP #### [facility] [address] [place], [place] [id number] ALT [Catalytic activity/Vol] 15 U/L Normal 6-33 [facility] [employer] Coordinator Comment on above: Result Comment: 06/03 Female reference range changed. Performed By: #### V ITD, TSH reflex FT4, CBCAD, LIPD, CMP #### [facility] [address] [place] [address], [place] [id number] Anion gap [Moles/Vol] 17 mmol/L Normal 12-20 [facility] [employer] Coordinator Comment on above: Result Comment: Effe ctive 07/09/2019 reference range changed. Performed By: #### V ITD, TSH reflex FT4, CBCAD, LIPD, CMP #### [facility] [address] [place], [place] [id number] AST [Catalytic activity/Vol] 18 U/L Normal 9-34 [facility] Comment on above: Performed By: #### V ITD, TSH reflex FT4, CBCAD, LIPD, CMP #### [facility] [address] [place], [place] [id number] BUN/CREA 21 Ratio Normal 6-22 [facility] Comment on above: Performed By: #### V ITD, TSH reflex FT4, CBCAD, LIPD, CMP #### [facility] [address] [place], [place] [id number] Calcium [Mass/Vol] 9.7 mg/dL Normal 8.6-10.2 [facility] Comment on above: Performed By: #### V ITD, TSH reflex FT4, CBCAD, LIPD, CMP #### [facility] [address] [place], [place] [id number] Chloride [Moles/Vol] 102 mmol/L Normal 98-107 [facility] Comment on above: Performed By: #### V ITD, TSH reflex FT4, CBCAD, LIPD, CMP #### [facility] [address] [place], [place] [id number] CO2 [Moles/Vol] 23 mmol/L Normal 20-31 [facility] Comment on above: Performed By: #### V ITD, TSH reflex FT4, CBCAD, LIPD, CMP #### [facility] [address] [place] [address], [place] [id number] Creatinine [Mass/Vol] 0.9 mg/dL Normal 0.6-1.4 [facility] Comment on above: Performed By: #### V ITD, TSH reflex FT4, CBCAD, LIPD, CMP #### [facility] [address] [place], [place] [id number] eGFRAA 81 mL/min/1.73m2 Normal >60 [facility] Specialist Comment on above: Performed By: #### V ITD, TSH reflex FT4, CBCAD, LIPD, CMP #### [facility] [address] [place], [place] [id number] eGFRNAA 67 mL/min/1.73m2 Normal >60 [facility] [employer] Coordinator Comment on above: Performed By: #### V ITD, TSH reflex FT4, CBCAD, LIPD, CMP #### [facility] [address] [place], [place] [id number] Globulin (S) [Mass/Vol] 2.1 g/dL Normal 1.9-3.7 [facility] Coordinator Comment on above: Performed By: #### V ITD, TSH reflex FT4, CBCAD, LIPD, CMP #### [facility] [address] [place], [place] [id number] Glucose [Mass/Vol] 109 mg/dL High 65-99 [facility] [place] [facility] Coordinator Comment on above: Result Comment: For FASTING Glucose --- ADA reference ranges: Normal 65-99 mg/dl Prediabetes 100-125 Diabetes >/= 126 Performed By: #### V ITD, TSH reflex FT4, CBCAD, LIPD, CMP #### [facility] [address] [place], [place] [id number] Potassium [Moles/Vol] 4.0 mmol/L Normal 3.5-5.5 [facility] Coordinator Comment on above: Performed By: #### V ITD, TSH reflex FT4, CBCAD, LIPD, CMP #### [facility] [address] [place], [place] [id number] Protein [Mass/Vol] 6.6 g/dL Normal 6.1-8.1 [facility] [place] [facility] Coordinator Comment on above: Performed By: #### V ITD, TSH reflex FT4, CBCAD, LIPD, CMP #### [facility] [address] [place], [place] [id number] Sodium [Moles/Vol] 139 mmol/L Normal 135-146 [facility] [place] [facility] Coordinator Comment on above: Performed By: #### V ITD, TSH reflex FT4, CBCAD, LIPD, CMP #### [facility] [address] [place], [place] [id number] TBIL <0.[address] [facility] Coordinator Comment on above: Performed By: #### V ITD, TSH reflex FT4, CBCAD, LIPD, CMP #### [facility] [address] [place], [place] [id number] Urea nitrogen [Mass/Vol] 19 mg/dL Normal 7-25 [facility] Coordinator Comment on above: Performed By: #### V ITD, TSH reflex FT4, CBCAD, LIPD, CMP #### [facility] [address] [place], [place] [id number] Lipid Panelon 12-02-2021 Cholesterol [Mass/Vol] 223 mg/dL High 125-200 [facility] Coordinator Comment on above: Result Comment: Low risk < 200mg/dL Borderline risk 201-239 mg/dl High risk > or equal to 240 Performed By: #### V ITD, TSH reflex FT4, CBCAD, LIPD, CMP #### [facility] [address] [place], [place] [id number] Cholesterol in HDL [Mass/Vol] 61 mg/dL Normal >40 [facility] Coordinator Comment on above: Result Comment: High Cardiovascular Risk HDL <40 mg/dL Low Cardiovascular Risk HDL > or equal to 60 mg/dl Performed By: #### V ITD, TSH reflex FT4, CBCAD, LIPD, CMP #### [facility] [address] [place], [place] [id number] Cholesterol in LDL [Mass/Vol] 128 mg/dL Normal [facility] Coordinator Comment on above: Result Comment: LDL ATP III CLASSIFICATION LDL less than 100 mg/dl Optimal LDL 100-129 mg/dl Near or above optimal LDL 130-159 Borderline high LDL 160-189 High LDL greater than 189 mg/dl Very High Performed By: #### V ITD, TSH reflex FT4, CBCAD, LIPD, CMP #### [facility] [address] [place], [place] [id number] Cholesterol in VLDL [Mass/Vol] 34 mg/dL Normal [facility] Coordinator Comment on above: Performed By: #### V ITD, TSH reflex FT4, CBCAD, LIPD, CMP #### [facility] [address] [place], [place] [id number] Cholesterol.total/Ch olesterol in HDL [Mass ratio] 4 {ratio} Normal [facility] Coordinator Comment on above: Performed By: #### V ITD, TSH reflex FT4, CBCAD, LIPD, CMP #### [facility] [address] [place], [place] [id number] Triglyceride [Mass/Vol] 171 mg/dL High 30-150 [facility] Coordinator Comment on above: Result Comment: TRIG ATPIII CLASSIFICATIONS TRIG less than 150 mg/dl Normal TRIG 150-199 mg/dl Borderline High TRIG 200-500 mg/dl High TRIG greather than 500 mg/dl Very High Performed By: #### V ITD, TSH reflex FT4, CBCAD, LIPD, CMP #### [facility] [address] [place], [place] [id number] TSH w/ Reflex to Free T4on 0 12-02-2021 TSH 2.760 uIU/mL Normal 0.400-4.500 [facility] Cash Management Coordinator Comment on above: Performed By: #### V ITD, TSH reflex FT4, CBCAD, LIPD, CMP #### [facility] [address] [place], [place] [id number] Vitamin D 25-OHon 12-02-2021 VIT D 25 [place] 56 ng/ml Normal >29 [facility] Cash Management Coordinator Comment on above: Result Comment: Mendy min D Status Deficiency <20 ng/mL Insufficiency 20-29 ng/mL Optimal 30-100 ng/mL Possible Toxicity >=150 ng/mL Performed By: #### V ITD, TSH reflex FT4, CBCAD, LIPD, CMP #### [facility] [address] [place], [place] [id number] Vital Signs Date Time Vital Sign Value Performing Clinician Facility 11-12-2024 10:18040 Body mass index (BMI) [Ratio] 36.94 kg/m2 [facility] Work Phone: [facility] 11-12-2024 10:18040 Body weight 100.7 kg [facility] Work Phone: [facility] 11-12-2024 10:18040 Diastolic blood pressure 72 mm[Hg] [facility] Work Phone: [facility] 11-12-2024 10:18040 Systolic blood pressure 118 mm[Hg] [facility] Work Phone: [facility] 04-23-2024 10:180400 Body mass index (BMI) [Ratio] 36.11 kg/m2 Mahi Sowmya DO Work Phone: [facility] 04-23-2024 10:18-0400 Body weight 98.43 kg Mahi Sowmya DO Work Phone: [facility] 04-23-2024 10:18-0400 Diastolic blood pressure 74 mm[Hg] Mahi Sowmya DO Work Phone: [facility] 04-23-2024 10:18-0400 Systolic blood pressure 118 mm[Hg] Mahi Sowmya DO Work Phone: [facility] 03-26-2024 09:30-0400 Body mass index (BMI) [Ratio] 35.94 kg/m2 Elly Alicja PA Work Phone: [facility] 03-26-2024 09:30-0400 Body weight 97.98 kg Elly Trout [place] PA Work Phone: [facility] 03-26-2024 09:30-0400 Diastolic blood pressure 70 mm[Hg] Elly [place]out [place] PA Work Phone: [facility] 03-26-2024 09:30-0400 Systolic blood pressure 112 mm[Hg] Elly Alicja PA Work Phone: [facility] 02-27-2024 08:32-0400 Body mass index (BMI) [Ratio] 36.78 kg/m2 Elly [place] PA Work Phone: [facility] 02-27-2024 08:32-0400 Body weight 100.25 kg Elly [place] PA Work Phone: [facility] 02-27-2024 08:32-0400 Diastolic blood pressure 70 mm[Hg] Elly [place] PA Work Phone: [facility] 02-27-2024 08:32-0400 Systolic blood pressure 110 mm[Hg] Elly Alicja PA Work Phone: [facility] 12-31-2023 09:35-0400 Body height 157.48 cm MD Avila Vieyra Work Phone: [facility] 12-31-2023 09:35-0400 Body mass index (BMI) [Ratio] 40.4 kg/m2 MD Avila Vieyra Work Phone: [facility] 12-31-2023 09:35-0400 Body weight 100.24 kg MD Avila Vieyra Work Phone: [facility] 12-31-2023 09:35-0400 Diastolic blood pressure 78 mm[Hg] MD Avila Vieyra Work Phone: [facility] 12-31-2023 09:35-0400 Heart rate 93 /min MD Avila Vieyra Work Phone: [facility] 12-31-2023 09:35-0400 Respiratory rate 18 /min MD Avila Vieyra Work Phone: [facility] 12-31-2023 09:35-0400 SaO2% (BldA) [Mass fraction] 96 % MD Avila Vieyra Work Phone: [facility] 12-31-2023 09:35-0400 Systolic blood pressure 114 mm[Hg] MD Avila Vieyra Work Phone: [facility] 11-27-2023 14:37-0400 Body height 157.48 cm MD Avila Vieyra Work Phone: [facility] 11-27-2023 14:37-0400 Body mass index (BMI) [Ratio] 41 kg/m2 MD Avila Vieyra Work Phone: [facility] 11-27-2023 14:37-0400 Body temperature 98.6 [degF] MD Avila Vieyra Work Phone: [facility] 11-27-2023 14:37-0400 Body weight 101.74 kg MD Avila Vieyra Work Phone: [facility] 11-27-2023 14:37-0400 Diastolic blood pressure 86 mm[Hg] MD Avila Vieyra Work Phone: [facility] 11-27-2023 14:37-0400 Heart rate 79 /min MD Avila Vieyra Work Phone: [facility] 11-27-2023 14:37-0400 Respiratory rate 16 /min MD Avila Vieyra Work Phone: [facility] 11-27-2023 14:37-0400 SaO2% (BldA) [Mass fraction] 99 % MD Avila Vieyra Work Phone: [facility] 11-27-2023 14:37-0400 Systolic blood pressure 123 mm[Hg] MD Avila Vieyra Work Phone: [facility] Encounters Encounter Date Encounter Type Care Provider Facility Start: 11-12-2024 End: 11-12-2024 Bamboo flowsheet Mahi Sowmya DO Work Phone: [facility] Start: 11-12-2024 End: 11-12-2024 Bamboo flowsheet Mahi Sowmya DO Work Phone: [facility] Start: 11-12-2024 End: 11-12-2024 Clinisync Result Encounter Mahi Sowmya DO Work Phone: [facility] Unsolicited Start: 11-12-2024 End: 11-12-2024 Patient encounter procedure Mahi Sowmya DO Work Phone: [facility] Start: 11-12-2024 End: 11-12-2024 Periodic preventive med est patient 40-64yrs Mahi Sowmya DO Work Phone: [facility] Comment on above: Well woman exam with routine gynecological exam; Encounter for screening mammogram for malignant neoplasm of breast Start: 04-23-2024 End: 04-23-2024 Bamboo flowsheet Mahi Sowmya DO Work Phone: [facility] Start: 04-23-2024 End: 04-23-2024 Bamboo flowsheet Mahi Sowmya DO Work Phone: [facility] Start: 04-23-2024 End: 04-23-2024 Office outpatient visit 15 minutes Mahi Sowmya DO Work Phone: [facility] Comment on above: Weight gain; Encounter for weight management Start: 04-23-2024 End: 04-23-2024 ambulatory MAHI BARLOWO Not Available Start: 03-26-2024 End: 03-26-2024 Bamboo flowsheet Elly Helm PA Work Phone: [facility] Start: 03-26-2024 End: 03-26-2024 Bamboo flowsheet Elly Alicja PA Work Phone: [facility] Start: 03-26-2024 End: 03-26-2024 ambulatory ELLY ALICJA Not Available Start: 03-26-2024 End: 03-26-2024 Office outpatient visit 15 minutes Elly Alicja PA Work Phone: [facility] Comment on above: Weight gain; Encounter for weight management Start: 02-27-2024 End: 02-27-2024 Bamboo flowsheet Elly Trout [place] PA Work Phone: [facility] Start: 02-27-2024 End: 02-27-2024 Bamboo flowsheet Elly [place] PA Work Phone: [facility] Start: 02-27-2024 End: 02-27-2024 Office outpatient visit 15 minutes Elly Alicja PA Work Phone: [facility] Comment on above: Encounter for weight management; Weight gain Start: 02-27-2024 End: 02-27-2024 ambulatory ELLY ALICJA Not Available Start: 01-24-2024 End: 01-24-2024 ambulatory ELLY ALICJA Not Available Start: 01-13-2024 End: 01-13-2024 ambulatory LEYLA BUSTILLOS Not Available Start: 12-31-2023 End: 12-31-2023 ambulatory MD Avila Vieyra Work Phone: [facility] Work Phone: Start: 12-31-2023 End: 12-31-2023 Patient encounter procedure MD Avila Vieyra Work Phone: [facility] Work Phone: Start: 12-27-2023 End: 12-27-2023 ambulatory MAHI DENG Not Available Start: 11-27-2023 End: 11-27-2023 ambulatory MD Avila Vieyra Work Phone: [facility] Work Phone: Start: 11-27-2023 End: 11-27-2023 Patient encounter procedure MD Avila Vieyra Work Phone: [facility] Work Phone: Start: 11-08-2023 End: 11-08-2023 ambulatory ELLY HELM Not Available Start: 11-04-2023 End: 11-04-2023 Departed Referred MD Avila Vieyra Work Phone: [facility] Start: 05-17-2023 End: 05-17-2023 ambulatory LEYLA Tarah BUSTILLOS Not Available Start: 09-21-2022 End: 09-21-[address] MAHI DENG . Facility: Start: 09-21-2022 End: 09-22-[address] MAHI DENG . Facility: Procedures Date Procedure Procedure Detail Performing Clinician Start: 11-12-2024 MM TOMOSYNTHESIS SCR EENING BI Mahi Sowmya DO Work Phone: Start: 11-12-2024 Urnls dip stick/tabl et rgnt non-auto w/o micrscp Mahi Sowmya DO Work Phone: Start: 11-12-2024 Mammography Mahi Fazi o DO Work Phone: Start: 11-08-2023 Microscopic observat ion [Identifier] in Cervix by Cyto stain Elly ANGEL Work Phone: Start: 10-26-2023 Mammography Elly ANGEL Work Phone: Plan of Treatment Date Care Activity Detail Author Start: 09-22-2027 Screening for malignant neoplasm of cervix [facility] Start: 11-07-2026 Screening for malignant neoplasm of cervix Pap Smear [facility] Start: 11-18-2025 End: 11-18-2025 Patient encounter procedure 11/18/2025 10:00 AM EDT Office Visit [facility] [address] [place] [id number] Mahi Deng DO [address] [place] [address] [facility] Start: 03-04-2025 Influenza vaccination Influenz a Vaccine (Season Ended) [facility] Start: 11-12-2024 End: 11-12-2024 Patient encounter procedure [facility] Comment on above: Arrived Start: 10-25-2024 Screening for malignant neoplasm of breast Mammogram [facility] Start: 04-23-2024 End: 04-23-2024 Patient encounter procedure [facility] Comment on above: Arrived Start: 03-26-2024 End: 03-26-2024 Patient encounter procedure 03/26/2024 8:50 AM EDT Office Visit [facility] [address] [place] [id number] Elly Helm, PA [address] [address] [facility] Start: 03-04-2024 Influenza vaccination Influenza Vacc ine (#1) [facility] Start: 02-27-2024 End: 02-27-2024 Patient encounter procedure 02/27/2024 8:30 AM EDT Office Visit [facility] [address] [place] [id number] Elly Helm, PA [address] [place], [place] [id number] Arrived [facility] Comment on above: Arrived Start: 1980 Screening for malignant neoplasm of colon [facility] THIN PREP TIS PAP AN D HR HPV DNA THIN PREP TIS PAP AND HR HPV DNA Pathology and Cytology Routine Well woman exam with routine gynecological exam Ordered: 11/12/2024 [facility] Work Phone: Comment on above: Ordered: 11/12/2024 [facility] Immunizations Immunization Date Immunization Notes Care Provider Fa andriaty 04-09-2009 influenza virus vacc ine, whole virus Elly ANGEL Work Phone: [facility] 04-09-2009 influenza virus vacc ine, unspecified formulation Elly ANGEL Work Phone: [facility] Payers Date Payer Category Payer [facility] BCBS Memb er Subscriber Plan / Payer (Effective 2021-Present) Name: Aga Davis Relation to Subscriber: Spouse Name: BRENT DAVIS Date of : 1979 Address: [address] [place] [address] Payer ID: Not on file Type: Not on file Address: [address] [place] [id number] 2021 Unknown BCBS BCBS xxxxxx [id number] 2021-Present [phone] [address] [place] [id number] 1979 Unknown [id number] [id number]. [id number] 1979 Unknown [id number]. [id number] 1979 Unknown [id number] [id number]. 2.9 1979 Unknown [id number] [id number]. 2.9 1979 Unknown [id number] [id number]. 2.9 1979 Unknown [id number] [id number]. 2.1259 1979 Unknown [id number] [id number]. 2.1259 1979 Unknown [id number]. 2.1259 1979 Unknown [id number]. 2.1259 1979 Unknown [id number] 2.1259 1959 Unknown [id number] Social History Date Type Detail Facility Start: 11-27-2023 Tobacco smoking stat [facility] Never smoked tobacco (finding) [facility] Start: 1980 Sex Assigned At Female F [facility] Start: 05-17-2023 Tobacco smoking stat [facility] Ex-smoker [facility] History of tobacco use Current smoker [facility] History of tobacco use Cigarette Smoker [facility] Start: 05-17-2023 Tobacco use and exposure Smoke less tobacco non-user [facility] Start: 03-26-2024 End: 11-12-2024 Alcoholic beverage intake Ex-drinker (finding) [facility] [...] to any clubs or organizations such as sikh groups, unions, fraternal or athletic groups, or [...] Caffine: 2 cups romana y [facility] How often do you nee d to have someone help you when you read instructions, pamphlets, or other written material from your doctor or pharmacy [SILS] Never [facility] History of Present illness Narrative 11-12-2024 Phylicia Pena MA - 11/12/2024 10:00 AM EDT Note Date & Type Note Facility 11-12-2024 History of Presen t illness Narrative Reason for Appointment: Patient ID: aga Davis is a 44 y.o. female who presents for Gynecologic Exam Patient presents today for Annual Exam. MEDICATIONS Current Outpatient Medications Medication Instructions betamethasone valerate (Valisone) 0.1 % cream Topical, 2 times daily metFORMIN (GLUCOPHAGE) 500 mg, Oral, 2 times daily with meals Multiple Vitamin (multivitamin) capsule 1 capsule, Oral, [...] 05/05/2023 Body mass index (BMI) 40.0-44.9, adult ([facility]) 05/05/2023 Polycystic ovaries 05/05/2023 Resolved Ambulatory [...] CURETTAGE OF UTERUS 2000 ENDOMETRIAL ABLATION 2019 [place] LAP, SURG, RADFREQ ABLATION OF UTERINE FIBROID(S), INC INTRAOP GUIDE-MONITOR 2018 uterine ablation TUBAL LIGATION 2019 REVIEW OF SYSTEMS Review of Systems: Review of Systems Constitutional: Negative. HENT: Negative. Eyes: Negative. Respiratory: Negative. Cardiovascular: Negative. Gastrointestinal: Negative. Genitourinary: Negative. Musculoskeletal: Negative. Skin: Negative. Neurological: Negative. All other systems reviewed and are negative. Hematological: Negative. Endocrine: Negative. Allergic/Immunologic: Negative. OBJECTIVE Objective: Physical Exam Constitutional: Appearance: Normal appearance. She is well-developed. Genitourinary: Vulva normal. Right Adnexa: not tender and no mass present. Left Adnexa: not tender and no mass present. No cervical discharge. Breasts: Breasts are soft. Right: Normal. Left: Normal. HENT: Head: Normocephalic. Nose: Nose normal. Mouth/Throat: Mouth: Mucous membranes are moist. Cardiovascular: Rate and Rhythm: Normal rate and regular rhythm. Pulmonary: Effort: Pulmonary effort is normal. Breath sounds: Normal breath sounds. Abdominal: General: Bowel sounds are normal. There is no distension. Palpations: Abdomen is soft. Tenderness: There is no abdominal tenderness. There is no guarding or rebound. Musculoskeletal: General: No swelling. Normal range of motion. Cervical back: Normal range of motion. Right lower leg: No edema. Left lower leg: No edema. Neurological: General: No focal deficit present. Mental Status: She is alert and oriented to person, place, and time. Skin: General: Skin is warm and dry. Psychiatric: Mood and Affect: Mood normal. Behavior: Behavior normal. Vitals and nursing note reviewed. Exam conducted with a senior private client advisor present. Vitals: Estimated body mass index is 36.94 kg/m as calculated from the following: Height as of 01/13/24: 5' 5 . Weight as of this encounter: 222 lb. BP: 118/72 Patient's last menstrual period was 10/30/2024 (approximate). ASSESSMENT & PLAN ICD-10-CM 1. Well woman exam with routine gynecological exam Z01.419 POCT urinalysis dipstick manually resulted THIN PREP TIS PAP AND HR HPV DNA 2. Encounter for screening mammogram for malignant neoplasm of breast Z12.31 CANCELED: Bilateral screening mammogram CANCELED: Bilateral screening mammogram Annual: Patient presents today for an annual exam. Patient states she is doing well and has no complaints. Pap was obtained without difficulty and patient had her mammogram done today at [facility]. Orders Placed This Encounter Procedures POCT urinalysis dipstick manually resulted Follow Up: Patient is to return in one year for annual unless needed otherwise. Documented by Phylicia Pena MA on behalf of: Mahi Deng DO documented [...] 05/05/2023 Body mass index (BMI) 40.0-44.9, adult ([facility]) 05/05/2023 Polycystic ovaries 05/05/2023 Resolved Ambulatory [...] CURETTAGE OF UTERUS 2000 ENDOMETRIAL ABLATION 2019 [place] LAP, SURG, RADFREQ ABLATION OF UTERINE FIBROID(S), [...] nursing note reviewed. Exam conducted with a senior private client advisor present. Vitals: Estimated body mass index is [...] CURETTAGE OF UTERUS 2000 ENDOMETRIAL ABLATION 2019 [place] LAP, SURG, RADFREQ ABLATION OF UTERINE FIBROID(S), [...] calculated from the following: Height as of 24: 5' 5 . Weight as of this [...] 05/05/2023 Body mass index (BMI) 40.0-44.9, adult ([facility]) 05/05/2023 Polycystic ovaries 05/05/2023 Resolved Ambulatory [...] CURETTAGE OF UTERUS 2000 ENDOMETRIAL ABLATION 2019 [place] LAP, SURG, RADFREQ ABLATION OF UTERINE FIBROID(S), [...] of: JEANNE Peñaloza documented in this encounter [facility] Evaluation note Note Date & Type Note Facility Evaluation note Diagnosis Onset Date Poison vincenzo [facility] Work Phone: Evaluation note Note Date & Type Note Facility Evaluation note Diagnosis Onset Date Poison vincenzo acute Contact dermatitis [facility] Work Phone: Evaluation note Note Date & Type Note Facility Evaluation note Diagnosis Weight gain Other symptoms concerning nutrition, metabolism, and development Encounter for weight management documented in this encounter [facility] Evaluation note Note Date & Type Note Facility Evaluation note Diagnosis Encounter for weight management Weight gain Other symptoms concerning nutrition, metabolism, and development documented in this encounter [facility] Evaluation note Note Date & Type Note Facility Evaluation note Diagnosis Weight gain Other symptoms concerning nutrition, metabolism, and development Encounter for weight management documented in this encounter [facility] Evaluation note Note Date & Type Note Facility Evaluation note Diagnosis Well woman exam with routine gynecological exam Routine gynecological examination Encounter for screening mammogram for malignant neoplasm of breast documented in this encounter [facility] Summary Purpose Family History No Family History Records FoundNo Family History Records FoundNo Family History Records Found Advance Directives Advance Directive Response Recorded Date/ Time Advance Directives No November 26 2:30pm Additional Source Comments INFORMATION SOURCE (unrecogn ized section and content) DATE CREATED AUTHOR 12/03/[address] [facility] dical Specialist DATE CREATED AUTHOR AUTHOR'S ORGANIZ ATION 10/01/2022 [facility] DATE CREATED AUTHOR AUTHOR'S ORGANIZ ATION 04/24/[address] [facility] dical Specialists EPIC Care Teams (unrecognized sec tion and content) Team Status: Active Member Role Status Dates Lucy Hanson MD Primary Care Provide r Active Team Status: Inactive Member Role Status Dates Avila Vieyra MD Attending Provider Active Star t: November 04, 2023 End: November 04, 2023 Team Status: Inactive Member Role Status Dates Pam Cordoba APRN Attending Provider Active S tart: November 27, 2023 End: November 27, 2023 Lucy Hanson MD Primary Care Provide r Active Start: November 27, 2023 End: November 27, 2023 Team Status: Inactive Member Role Status Dates Lucy Hanson MD Primary Care Provide r Active Start: December 31, 2023 End: December 31, 2023 Siobhan Salmon APRN Attending Provider Active Start: December 31, 2023 End: December 31, 2023 Membership Solicitor Relationship Specialty Start Date End Date Lucy Hanson MD [address] [place] [address] PCP - General 12/21/22 Leyla Bustillos NP [address] [place] [address] PCP - [place] [employer] 03/04/24 Membership Solicitor Relationship Specialty Start Date End Date Lucy Hanson MD [address] [place] [address] PCP - General 12/21/22 Leyla Bustillos NP [address] [place] [address] PCP - [facility] 03/04/24 Membership Solicitor Relationship Specialty Start Date End Date Lucy Hanson MD [address] [place] [address] PCP - General 12/21/22 Membership Solicitor Relationship Specialty Start Date End Date Lucy Hanson MD [address] [place] [address] PCP - General 12/21/22 Membership Solicitor Relationship Specialty Start Date End Date Lucy Hanson MD [address] [facility] [place] [address] PCP - General 12/21/22 Membership Solicitor Relationship Specialty Start Date End Date Lucy Hanson MD [address] [place] [place] [address] PCP - General 12/21/22 Membership Solicitor Relationship Specialty Start Date End Date Lucy Hanson MD [address] [facility] [place] [address] PCP - General 12/21/22 Goals (unrecognized section and content) Goals may be documented in a n alternate sectionGoals may be documented in an alternate section Reason for Visit (unrecogniz ed section and content) Reason Comments Weight Gain Pt present today for Adipex #5 Reason Comments encounter for weight loss Reason Comments Weight Management Reason Comments Gynecologic Exam FOR RECORDS PERTAINING TO PATIENTS WHO ARE [...] BE BASED ON THE PRIMARY CLINICAL RECORDS. [facility]. provides no warranty or guarantee of the accuracy or completeness of information in this document.
== END 2024-11-12 16:24 | disposition home or self-care (01) ==
LOC: LAB 16:23
PROVIDERS: PCP Family Medicine; Visit Provider Obstetrics & Gynecology
DX: Z01.419 Encounter for gynecological examination (general) (routine) without abnormal findings (principal); Z12.31 Encounter for screening mammogram for malignant neoplasm of breast
CPT/HCPCS: 77063; 77067; 87624; 88175

== ENCOUNTER 2024-12-20 10:10 | Outpatient (OUT) | payer BC, SELFPAY ==
--- OUTSIDE RECORDS SUMMARY | 2024-12-20 10:24 | XMS_ITS | CCD ---
Author Organization [facility] Care Team Providers Care Plush Brusher Name Role Phone SOWMYA ., DR CHAMPAGNE Admitting Unavailable SOWMYA ., DR CHAMPAGNE Consulting Unavailable SOWMYA ., DR CHAMPAGNE Attending Unavailable VALENTIN, DR GIBSON Primary Care Unavailable AMINA, DR DAMIAN Anaya Consulting Unavailable SOWMYA ., DR CHAMPAGNE Admitting Unavailable SOWMYA ., DR CHAMPAGNE Consulting Unavailable SOWMYA ., DR CAHMPAGNE Attending Unavailable VALENTIN, DR GIBSON Primary Care Unavailable MD Avila Vieyra V Attending Provider Lucy Hanson MD Primary Care Provider Tressa MAIN, Leyla Rascon Unavailable MAHI DENG Attending Unavailable MAHI DENG Attending Unavailable LEYLA BUSTILLOS Attending Unavailab ELLY Hoffman Attending Unavailable ELLY HELM Attending Unavailable ELLY HELM Attending Unavailable MAHI DENG Attending Unavailable LUCY HANSON Primary Care Physician [phone] Mahi DENG Referring Unavailable Luke REIS Attending Unavailable Allergies Allergy Classification Reported Allergen(s) Allergy Type Date of Onset Reaction(s) Facility (1 source) No Known Medication Allergies; Translations: [No Known Medication Allergies] Propensity to adverse reactions (disorder) [facility] Repository Medications Current Medications Medication Drug Class(es) Dates [...] split. 30 tablet 11 12/21/2023 02/27/2024 Discontinued Multi Vitamins oral tablet (1 source) Start: 11-21-2024 take 1 tablet by mouth once daily Multi Vitamins oral tablet 1 tab(s), Oral, Daily, Refill(s) 0 Start Date: 11/21/24 Status: Ordered Repeat number: 1 Multiple Vitamin (multivitamin) capsule (13 sources) take 1 capsule by mouth in the morning Multiple Vitamin (multivitamin) capsule Take 1 capsule by mouth in the morning. Active phentermine hydrochloride 37.5 mg oral tablet (20 sources) Sympathomimetic Amine Anorectic Start: 01-24-2024 End: 07-22-2024 take 1 tablet by mouth before mealtime [...] Onset: 05-05-2023 05-05-2023 Chronic Other endocrine disorders (2 sources) Polycystic ovary syndrome; Translations: [Polycystic ovarian syndrome] 12-31-2023 Chronic Other endocrine disorders (13 sources) Polycystic ovary; Translations: [Polycystic ovarian syndrome] Onset: 05-05-2023 05-05-2023 Chronic Other nutritional; endocrine; and metabolic disorders (13 sources) Body mass index 40+ - severely obese; Translations: [Body mass index (BMI) 40.0-44.9, adult] Onset: 05-05-2023 05-05-2023 Chronic Other nutritional; endocrine; and metabolic disorders (1 source) Body mass index 30+ - obesity 12-11-2024 Chronic Other nutritional; endocrine; and metabolic disorders (1 source) Obese class III 11-21-2024 Chronic Other nutritional; endocrine; and metabolic disorders (4 sources) Weight increased; Translations: [Abnormal weight gain] 04-23-2024 Episodic Other screening for suspected conditions (not mental disorders or infectious disease) (12 sources) Encounter for screening for malignant neoplasm of cervix; Translations: [Encounter for screening mammogram for malignant neoplasm of breast] Onset: 09-21-2022 Episodic Unclassified (1 source) Patient encounter status 12-11-2024 Past or Other Problems Problem Classification Problem [...] Test Name Value Interpretation Reference Range Facility Ambulatory Visit Summaryon 0 12-11-2024 Ambulatory Visit Summary Ambulatory Visit Summary AGA DAVIS :1980 Visit Date:12/11/2024 Ambulatory Visit Instructions Your Diagnosis Screening for malignant neoplasm of colon Your Care Team Attending Physician - SMILEY MONTENEGRO, Luke Anaya Primary Care Physician - VALENTIN MONTENEGRO, LUCY Kelly Referring Physician - Mahi DENG DO This Is Your Medications List Contact prescribing physician if questions or concerns multivitamin (Multi Vitamins oral tablet) Procedures Performed section, Dilation and curettage, Endometrial ablation, Tubal ligation, Ultrasonography guided biopsy of right breast. Discharge Vitals Heart Rate (Peripheral) 72 Respiratory Rate 16 Blood Pressure 130/92 Height 165 cm Height 65 in Weight 104.7 kg Weight 230.824 lb BMI 38.46 Medications What How Much When Instructions Unchanged multivitamin (Multi Vitamins oral tablet) 1 Tablets By Mouth Every day Contact prescribing physician if questions or concerns Allergies No Known Allergies No Known Medication Allergies Problems Ongoing - Any problem that you are currently receiving treatment for. BMI 38.0-38.9,adult Class 3 obesity PCOS (polycystic ovarian syndrome) Screening for malignant neoplasm of colon Patient Survey You may receive a survey via text or e-mail asking about your office visit. Please share your experience with us by completing your survey. We appreciate your feedback and thank you for choosing us for your care. [facility] MM TOMOSYNTHESIS SCREENING B Ion 11-12-2024 [place] [address] Mammography Report Signed Patient: AGA DAVIS MR#: [id number] : 1980 Acct:[id number] Age/Sex: 44 / F ADM Date: 11/12/24 Loc: MAMMO Attending Dr: Mahi Deng D.O. Ordering Physician: Mahi Deng D.O. Results: Date of Service: 11/12/24 Follow Up: Procedure(s): MM tomosynthesis screening BI Accession Number(s): [id number] cc: Mahi Deng D.O.; LUCY HANSON Patient Name: AGA DAVIS MR#: [id number] : 1980 Exam Date: 11/12/2024 Ordering Doctor: [...] None Family Cancers None LOCATION: [facility] BREAST COMPOSITION: There are scattered areas [...] Signed By: 11/12/24 1536 DD/ 1535 TD/TT: Manager Community Relations: [facility] Radiology, Radiologist, MD - 11/12/2024 [place] [address] Mammography Report Signed Patient: AGA DAVIS MR#: [id number] : 1980 Acct:[id number] Age/Sex: 44 / F ADM Date: 11/12/24 Loc: MAMMO Attending Dr: Mahi Deng D.O. Ordering Physician: Mahi Deng D.O. Results: Date of Service: 11/12/24 Follow Up: Procedure(s): MM tomosynthesis screening BI Accession Number(s): [id number] cc: Mahi Deng D.O.; LUCY HANSON Patient Name: AGA DAVIS MR#: [id number] : 1980 Exam Date: 11/12/2024 Ordering Doctor: [...] None Family Cancers None LOCATION: [facility] BREAST COMPOSITION: There are scattered areas [...] Signed By: 11/12/24 1536 DD/ 1535 TD/TT: Manager Community Relations: [facility] Radiology Study observation (narrative) [facility] MM TOMOSYNTHESIS SCREENING B IOrdered By: Radiologist Radiology on 11-12-2024 [facility] Nephros e Work Phone: Urinalysis macro (dipstick) panel (U)on 11-12-2024 Bilirubin, UA Negative Negative - 4(70) +++ mg/dL [facility] Blood, UA Negative Negative - 50 Petey/mcL [facility] Clarity, UA Clear [facility] [employer] Color, UA Yellow [facility] Neph[facility] Glucose, UA Negative Negative - 2000(110) ++++ mg/dL [facility] Interpretation and review of laboratory results Normal [facility] Ketones, UA Negative Negative - 160(16) ++++ mg/dL [facility] Leukocytes, UA Negative Negative - 500+++ Bernie/mcL [facility] Nitrite, UA Negative Negative - Positive [facility] pH, UA 6 5 - 9 [facility] Healthcar e Protein, UA Negative Negative - 2000(20) ++++ mg/dL [facility] Spec Grav, UA 1.02 1 - 1.03 [facility] Urobilinogen, UA 0.2 0.2 - 12 mg/dL [facility] PAP ACOG PANEL 2: 30 to 65on 09-28-[address] [facility] Comment on above: Result Comment: Perf ormed at: WB Performed By: #### [id number] #### [facility] [address] [address] [address] Allan Flowers Age Gdln ACOG Testing [facility] Comment on above: Performed By: #### [id number] #### [facility] [address] [address] [address] Allan Flowers DIAGNOSIS: Comment [facility] Comment on above: Result Comment: NEGA TIVE FOR INTRAEPITHELIAL LESION OR MALIGNANCY. Performed at: WB Performed By: #### [id number] #### [facility] [address] [address] [address] Allan Flowers HPV Aptima Negative Normal [facility] Comment on above: Result Comment: This nucleic acid amplification test detects fourteen high-risk HPV types (16,18,31,33,35,39,45,51,52,56,58,59,66,68) without differentiation. Performed at: =G Performed By: #### [id number] #### [facility] [address] [address] [address] Allan Flowers HPV Genotype Reflex Comment Normal [facility] Comment on above: Result Comment: Crit eria not met, HPV Genotype not performed. Performed at: WB Performed By: #### 4 [id number] #### [facility] [address] [address] [address] Allan Flowers Methodology: Comment [facility] Comment on above: Result Comment: This liquid based ThinPrep(R) pap test was screened with the use of an image guided system. Performed at: WB Performed By: #### [id number] #### [facility] [address] [place] [address] Dr. Allan Flowers Note: Comment Normal [facility] Comment on above: Result Comment: The Pap smear is a screening test designed to aid in the detection of premalignant and malignant conditions of the uterine cervix. It is not a diagnostic procedure and should not be used as the sole means of detecting cervical cancer. Both false-positive and false-negative reports do occur. . Performed at: WB Performed By: #### [id number] #### [facility] [address] [address] [address] Allan Flowers Performed by: Comment Normal [facility] Comment on above: Result Comment: Jacqueline Hartman, Supervisory Coffee Blender (ASCP) Performed at: WB Performed By: #### [id number] #### [facility] [address] [place] [address] Dr. Allan Flowers Specimen adequacy: Comment Normal [facility] Comment on above: Result Comment: Sati sfactory for evaluation. No endocervical component is identified. Performed at: WB Performed By: #### [id number] #### [facility] [address] [place] [address] Dr. Allan Flowers MG MAMM SCREEN 3D CHASIDY CADon 09-21-2022 MG MAMM SCREEN 3D CHASIDY CAD Patient: AGA DAVIS Exam Date: 09/21/2022 : 1980 Gender:F Ordering : DR MAHI DENG . Admission #: [id number] Family : Order #: [id number] CLICK HERE TO VIEW EXAM RADIOLOGY REPORT PROCEDURE: MAMMOGRAM SCREENING 3D BILATERAL CAD COMPARISON: MG MAMM SCREEN 3D CHASIDY CAD, 10/29/2020. INDICATIONS: Screening mammography Calculator Name NCI Breast Cancer Risk Assessment Tool 5 Year Breast Cancer Risk 0.90% Lifetime Breast Cancer Risk 11.80% Personal Breast Cancer No Personal Ovarian Cancer No Treatments None Family Cancers None LOCATION: [facility] BREAST COMPOSITION: Scattered areas fibroglandular density. [...] Wasserman M.D. on 09/22/2022 at 08:[address] [facility] Complete Blood Count with Au to Diffon 12-02-2021 Basophils (Bld) [#/Vol] 0.06 10*3/uL Normal 0.00-0.20 [facility] Specialist Comment on above: Performed By: #### V ITD, TSH reflex FT4, CBCAD, LIPD, CMP #### [facility] [address], [place] [id number] Basophils/100 WBC (Bld) 0.8 % Normal [facility] Comment on above: Performed By: #### V ITD, TSH reflex FT4, CBCAD, LIPD, CMP #### [facility] [address], [place] [id number] Eosinophils (Bld) [#/Vol] 0.31 10*3/uL Normal 0.02-0.50 [facility] Comment on above: Performed By: #### V ITD, TSH reflex FT4, CBCAD, LIPD, CMP #### [facility] [address], [place] [id number] Eosinophils/100 WBC (Bld) 4.4 % Normal [facility] Comment on above: Performed By: #### V ITD, TSH reflex FT4, CBCAD, LIPD, CMP #### [facility] [address], [place] [id number] Erythrocyte distribution width (RBC) [Ratio] 13.3 % Normal 11.0-15.0 [facility] Comment on above: Performed By: #### V ITD, TSH reflex FT4, CBCAD, LIPD, CMP #### [facility] [address], [place] [id number] Hematocrit (Bld) [Volume fraction] 36.2 % Normal 35.0-47.0 [facility] Specialist Comment on above: Performed By: #### V ITD, TSH reflex FT4, CBCAD, LIPD, CMP #### [facility] [address], [place] [id number] Hemoglobin (Bld) [Mass/Vol] 11.3 g/dL Low 11.6-15.5 [facility] Comment on above: Performed By: #### V ITD, TSH reflex FT4, CBCAD, LIPD, CMP #### [facility] [address], [place] [id number] Lymphocytes (Bld) [#/Vol] 1.8 10*3/uL Normal 0.9-3.9 [facility] Comment on above: Performed By: #### V ITD, TSH reflex FT4, CBCAD, LIPD, CMP #### [facility] [address], [place] [id number] Lymphocytes/100 WBC (Bld) 25.5 % Normal [facility] Specialist Comment on above: Performed By: #### V ITD, TSH reflex FT4, CBCAD, LIPD, CMP #### [facility] [address], [place] [id number] MCH (RBC) [Entitic mass] 27.2 pg Normal 27.0-33.0 [facility] Comment on above: Performed By: #### V ITD, TSH reflex FT4, CBCAD, LIPD, CMP #### [facility] [address], [place] [id number] MCHC (RBC) [Mass/Vol] 31.2 g/dL Low 32.0-36.0 [facility] Comment on above: Performed By: #### V ITD, TSH reflex FT4, CBCAD, LIPD, CMP #### [facility] [address], [place] [id number] MCV (RBC) [Entitic vol] 87 fL Normal 80-100 [facility] Comment on above: Performed By: #### V ITD, TSH reflex FT4, CBCAD, LIPD, CMP #### [facility] [address], [place] [id number] Monocytes (Bld) [#/Vol] 0.5 10*3/uL Normal 0.2-0.9 [facility] Comment on above: Performed By: #### V ITD, TSH reflex FT4, CBCAD, LIPD, CMP #### [facility] [address], [place] [id number] Monocytes/100 WBC (Bld) 6.5 % Normal [facility] Comment on above: Performed By: #### V ITD, TSH reflex FT4, CBCAD, LIPD, CMP #### [facility] [address], [place] [id number] Neutrophils (Bld) [#/Vol] 4.4 10*3/uL Normal 1.5-7.8 [facility] Special[facility] Comment on above: Performed By: #### V ITD, TSH reflex FT4, CBCAD, LIPD, CMP #### [facility] [address], [place] [id number] Neutrophils/100 WBC (Bld) 62.4 % Normal [facility] Comment on above: Performed By: #### V ITD, TSH reflex FT4, CBCAD, LIPD, CMP #### [facility] [address], [place] [id number] Platelet mean volume (Bld) [Entitic vol] 11.40 fL Normal 7.50-12.50 [facility] Comment on above: Performed By: #### V ITD, TSH reflex FT4, CBCAD, LIPD, CMP #### [facility] [address], [place] [id number] Platelets (Bld) [#/Vol] 309 10*3/uL Normal 140-400 [facility] Special[facility] Comment on above: Performed By: #### V ITD, TSH reflex FT4, CBCAD, LIPD, CMP #### [facility] [address], [place] [id number] RBC (Bld) [#/Vol] 4.16 10*6/uL Normal 3.90-5.20 [facility] Comment on above: Performed By: #### V ITD, TSH reflex FT4, CBCAD, LIPD, CMP #### [facility] [address], [place] [id number] RDW-SD 42.5 fL Normal 37.0-50.0 [facility] [employer] [place] Comment on above: Performed By: #### V ITD, TSH reflex FT4, CBCAD, LIPD, CMP #### [facility] [address], [place] [id number] WBC (Bld) [#/Vol] 7.1 10*3/uL Normal 3.8-11.0 [place] [facility] [place] [facility] [place] Comment on above: Performed By: #### V ITD, TSH reflex FT4, CBCAD, LIPD, CMP #### [facility] [address], [place] [id number] Comprehensive Metabolic Pane [facility] 12-02-2021 Albumin [Mass/Vol] 4.5 g/dL Normal 3.6-5.1 [place] [facility] [place] [facility] [employer] [place] Comment on above: Performed By: #### V ITD, TSH reflex FT4, CBCAD, LIPD, CMP #### [facility] [address], [place] [id number] Albumin/Globulin [Mass ratio] 2.1 {ratio} Normal 1.0-2.5 [facility] [employer] [place] Comment on above: Performed By: #### V ITD, TSH reflex FT4, CBCAD, LIPD, CMP #### [facility] [address], [place] [id number] ALP [Catalytic activity/Vol] 70 U/L Normal 35-119 [facility] [employer] [place] Comment on above: Performed By: #### V ITD, TSH reflex FT4, CBCAD, LIPD, CMP #### [facility] [address], [place] [id number] ALT [Catalytic activity/Vol] 15 U/L Normal 6-33 [facility] [employer] [place] Comment on above: Result Comment: 06/03 Female reference range changed. Performed By: #### V ITD, TSH reflex FT4, CBCAD, LIPD, CMP #### [facility] [address], [place] [id number] Anion gap [Moles/Vol] 17 mmol/L Normal 12-20 [facility] [employer] [place] Comment on above: Result Comment: Effe ctive 07/09/2019 reference range changed. Performed By: #### V ITD, TSH reflex FT4, CBCAD, LIPD, CMP #### [facility] [address], [place] [id number] AST [Catalytic activity/Vol] 18 U/L Normal 9-34 [facility] Comment on above: Performed By: #### V ITD, TSH reflex FT4, CBCAD, LIPD, CMP #### [facility] [address], [place] [id number] BUN/CREA 21 Ratio Normal 6-22 [facility] Comment on above: Performed By: #### V ITD, TSH reflex FT4, CBCAD, LIPD, CMP #### [facility] [address], [place] [id number] Calcium [Mass/Vol] 9.7 mg/dL Normal 8.6-10.2 [facility] Comment on above: Performed By: #### V ITD, TSH reflex FT4, CBCAD, LIPD, CMP #### [facility] [address], [place] [id number] Chloride [Moles/Vol] 102 mmol/L Normal 98-107 [facility] Comment on above: Performed By: #### V ITD, TSH reflex FT4, CBCAD, LIPD, CMP #### [facility] [address], [place] [id number] CO2 [Moles/Vol] 23 mmol/L Normal 20-31 [facility] Comment on above: Performed By: #### V ITD, TSH reflex FT4, CBCAD, LIPD, CMP #### [facility] [address], [place] [id number] Creatinine [Mass/Vol] 0.9 mg/dL Normal 0.6-1.4 [facility] Comment on above: Performed By: #### V ITD, TSH reflex FT4, CBCAD, LIPD, CMP #### [facility] [address], [place] [id number] eGFRAA 81 mL/min/1.73m2 Normal >60 [facility] Comment on above: Performed By: #### V ITD, TSH reflex FT4, CBCAD, LIPD, CMP #### [facility] [address], [place] [id number] eGFRNAA 67 mL/min/1.73m2 Normal >60 [facility] [employer] [place] Comment on above: Performed By: #### V ITD, TSH reflex FT4, CBCAD, LIPD, CMP #### [facility] [address], [place] [id number] Globulin (S) [Mass/Vol] 2.1 g/dL Normal 1.9-3.7 [facility] [employer] [place] Comment on above: Performed By: #### V ITD, TSH reflex FT4, CBCAD, LIPD, CMP #### [facility] [address], [place] [id number] Glucose [Mass/Vol] 109 mg/dL High 65-99 [facility] [place] [facility] [employer] [place] Comment on above: Result Comment: For FASTING Glucose --- ADA reference ranges: Normal 65-99 mg/dl Prediabetes 100-125 Diabetes >/= 126 Performed By: #### V ITD, TSH reflex FT4, CBCAD, LIPD, CMP #### [facility] [address], [place] [id number] Potassium [Moles/Vol] 4.0 mmol/L Normal 3.5-5.5 [facility] [employer] [place] Comment on above: Performed By: #### V ITD, TSH reflex FT4, CBCAD, LIPD, CMP #### [facility] [address], [place] [id number] Protein [Mass/Vol] 6.6 g/dL Normal 6.1-8.1 [facility] [facility] [place] [facility] [place] Comment on above: Performed By: #### V ITD, TSH reflex FT4, CBCAD, LIPD, CMP #### [facility] [address], [place] [id number] Sodium [Moles/Vol] 139 mmol/L Normal 135-146 [facility] [facility] [place] [facility] [employer] [place] Comment on above: Performed By: #### V ITD, TSH reflex FT4, CBCAD, LIPD, CMP #### [facility] [address], [place] [id number] TBIL <0.3 Normal [facility] [employer] [place] Comment on above: Performed By: #### V ITD, TSH reflex FT4, CBCAD, LIPD, CMP #### [facility] [address], [place] [id number] Urea nitrogen [Mass/Vol] 19 mg/dL Normal 7-25 [facility] [place] Comment on above: Performed By: #### V ITD, TSH reflex FT4, CBCAD, LIPD, CMP #### [facility] [address], [place] [id number] Lipid Panelon 12-02-2021 Cholesterol [Mass/Vol] 223 mg/dL High 125-200 [facility] [place] Comment on above: Result Comment: Low risk < 200mg/dL Borderline risk 201-239 mg/dl High risk > or equal to 240 Performed By: #### V ITD, TSH reflex FT4, CBCAD, LIPD, CMP #### [facility] [address], [place] [id number] Cholesterol in HDL [Mass/Vol] 61 mg/dL Normal >40 [facility] [place] Comment on above: Result Comment: High Cardiovascular Risk HDL <40 mg/dL Low Cardiovascular Risk HDL > or equal to 60 mg/dl Performed By: #### V ITD, TSH reflex FT4, CBCAD, LIPD, CMP #### [facility] [address], [place] [id number] Cholesterol in LDL [Mass/Vol] 128 mg/dL Normal [facility] [employer] [place] Comment on above: Result Comment: LDL ATP III CLASSIFICATION LDL less than 100 mg/dl Optimal LDL 100-129 mg/dl Near or above optimal LDL 130-159 Borderline high LDL 160-189 High LDL greater than 189 mg/dl Very High Performed By: #### V ITD, TSH reflex FT4, CBCAD, LIPD, CMP #### [facility] [address], [place] [id number] Cholesterol in VLDL [Mass/Vol] 34 mg/dL Normal [facility] [employer] [place] Comment on above: Performed By: #### V ITD, TSH reflex FT4, CBCAD, LIPD, CMP #### [facility] [address], [place] [id number] Cholesterol.total/Ch olesterol in HDL [Mass ratio] 4 {ratio} Normal [facility] [employer] [place] Comment on above: Performed By: #### V ITD, TSH reflex FT4, CBCAD, LIPD, CMP #### [facility] [address], [place] [id number] Triglyceride [Mass/Vol] 171 mg/dL High 30-150 [facility] [place] Comment on above: Result Comment: TRIG ATPIII CLASSIFICATIONS TRIG less than 150 mg/dl Normal TRIG 150-199 mg/dl Borderline High TRIG 200-500 mg/dl High TRIG greather than 500 mg/dl Very High Performed By: #### V ITD, TSH reflex FT4, CBCAD, LIPD, CMP #### [facility] [address], [place] [id number] TSH w/ Reflex to Free T4on 0 12-02-2021 TSH 2.760 uIU/mL Normal 0.400-4.500 [facility] [place] Comment on above: Performed By: #### V ITD, TSH reflex FT4, CBCAD, LIPD, CMP #### [facility] [address], [place] [id number] Vitamin D 25-OHon 12-02-2021 VIT D 25 OH 56 ng/ml Normal >29 [facility] [place] Comment on above: Result Comment: Mendy min D Status Deficiency <20 ng/mL Insufficiency 20-29 ng/mL Optimal 30-100 ng/mL Possible Toxicity >=150 ng/mL Performed By: #### V ITD, TSH reflex FT4, CBCAD, LIPD, CMP #### [facility] [address], [place] [id number] Vital Signs Date Time Vital Sign Value Performing Clinician Facility 11-12-2024 10:18040 Body mass index (BMI) [Ratio] 36.94 kg/m2 [employer] Work Phone: [facility] 11-12-2024 10:18040 Body weight 100.7 kg [employer] Work Phone: [facility] 11-12-2024 10:18040 Diastolic blood pressure 72 mm[Hg] [employer] Work Phone: [facility] 11-12-2024 10:18040 Systolic blood pressure 118 mm[Hg] [employer] Work Phone: [facility] 04-23-2024 10:18-0400 Body mass index (BMI) [Ratio] 36.11 kg/m2 Mahi Sowmya DO Work Phone: [facility] 04-23-2024 10:18-0400 Body weight 98.43 kg Mahi Sowmya DO Work Phone: [facility] 04-23-2024 10:18-0400 Diastolic blood pressure 74 mm[Hg] Mahi Sowmya DO Work Phone: [facility] 04-23-2024 10:18-0400 Systolic blood pressure 118 mm[Hg] Mahi Sowmya DO Work Phone: [facility] 03-26-2024 09:30-0400 Body mass index (BMI) [Ratio] 35.94 kg/m2 Elly Coe[place] PA Work Phone: [facility] 03-26-2024 09:30-0400 Body weight 97.98 kg Elly Alicja PA Work Phone: [facility] 03-26-2024 09:30-0400 Diastolic blood pressure 70 mm[Hg] Elly [place] PA Work Phone: [facility] 03-26-2024 09:30-0400 Systolic blood pressure 112 mm[Hg] Elly [place] PA Work Phone: [facility] 02-27-2024 08:32-0400 Body mass index (BMI) [Ratio] 36.78 kg/m2 Elly Alicja PA Work Phone: [facility] 02-27-2024 08:32-0400 Body weight 100.25 kg Elly Coe[place] PA Work Phone: [facility] 02-27-2024 08:32-0400 Diastolic blood pressure 70 mm[Hg] Elly Coeymans Hollow PA Work Phone: [facility] 02-27-2024 08:32-0400 Systolic blood pressure 110 mm[Hg] Elly Coeymans Hollow PA Work Phone: [facility] 12-31-2023 09:35-0400 Body height 157.48 cm MD Avila Vieyra Work Phone: [facility] 12-31-2023 09:35-0400 Body mass index (BMI) [Ratio] 40.4 kg/m2 MD Avila Vieyra Work Phone: [facility] 12-31-2023 09:35-0400 Body weight 100.24 kg MD Avila Vieyra Work Phone: [facility] 12-31-2023 09:35-0400 Diastolic blood pressure 78 mm[Hg] MD Avila Vieyra Work Phone: [facility] 12-31-2023 09:35-0400 Heart rate 93 /min MD Avila Vieyra Work Phone: [facility] 12-31-2023 09:35-0400 Respiratory rate 18 /min MD Avila Vieyra Work Phone: [facility] 12-31-2023 09:35-0400 SaO2% (BldA) [Mass fraction] 96 % MD Avila Vieyra Work Phone: [facility] 12-31-2023 09:35-0400 Systolic blood pressure 114 mm[Hg] MD Avila Vieyra Work Phone: [facility] 11-27-2023 14:37-0400 Body height 157.48 cm MD Avila iVeyra Work Phone: [facility] 11-27-2023 14:37-0400 Body mass index (BMI) [Ratio] 41 kg/m2 MD Avila Vieyra Work Phone: [facility] 11-27-2023 14:37-0400 Body temperature 98.6 [degF] MD Avila Vieyra Work Phone: [facility] 11-27-2023 14:37-0400 Body weight 101.74 kg MD Avila Vieyra Work Phone: [facility] 11-27-2023 14:37-0400 Diastolic blood pressure 86 mm[Hg] MD Avila Vieyra Work Phone: [facility] 11-27-2023 14:37-0400 Heart rate 79 /min MD Avila Vieyra Work Phone: [facility] 11-27-2023 14:37-0400 Respiratory rate 16 /min MD Avila Vieyra Work Phone: [facility] 11-27-2023 14:37-0400 SaO2% (BldA) [Mass fraction] 99 % MD Avila Vieyra Work Phone: [facility] 11-27-2023 14:37-0400 Systolic blood pressure 123 mm[Hg] MD Avila Vieyra Work Phone: [facility] Encounters Encounter Date Encounter Type Care Provider Facility Start: 12-11-2024 End: 12-11-2024 ambulatory Mahi R SOWMYA Facility: [facility] Start: 12-11-2024 End: 12-11-2024 Patient encounter procedure Luke Anaya SMILEY [facility] [place] Start: 11-15-2024 ambulatory Mahi SOWMYA [facility] Start: 11-12-2024 End: 11-12-2024 Bamboo flowsheet Mahi [...] mammogram for malignant neoplasm of breast Start: 11-12-2024 End: 11-12-2024 ambulatory MAHI SOWMYA Not Available Start: 04-23-2024 End: 04-23-2024 Bamboo flowsheet Mahi Sowmya DO Work Phone: [facility] Start: 04-23-2024 End: 04-23-2024 Bamboo flowsheet Mahi Sowmya DO Work Phone: [facility] Start: 04-23-2024 End: 04-23-2024 Office outpatient visit 15 minutes Mahi Sowmya DO Work Phone: [facility] Comment on above: Weight gain; Encounter for weight management Start: 04-23-2024 End: 04-23-2024 ambulatory MAHI SOWMYA Not Available Start: 03-26-2024 End: 03-26-2024 Bamboo flowsheet Elly Helm PA Work Phone: [facility] Start: 03-26-2024 End: 03-26-2024 Bamboo flowsheet Elly Helm PA Work Phone: [facility] Start: 03-26-2024 End: 03-26-2024 ambulatory ELLY ALICJA Not Available Start: 03-26-2024 End: 03-26-2024 Office outpatient visit 15 minutes Elly Helm PA Work Phone: [facility] Comment on above: Weight gain; Encounter for weight management Start: 02-27-2024 End: 02-27-2024 Bamboo flowsheet Elly Helm PA Work Phone: [facility] Start: 02-27-2024 End: 02-27-2024 Bamboo flowsheet Elly Alijca PA Work Phone: [facility] Start: 02-27-2024 End: 02-27-2024 Office outpatient visit 15 minutes Elly Helm PA Work Phone: [facility] Comment on above: Encounter for weight management; Weight gain Start: 02-27-2024 End: 02-27-2024 ambulatory ELLY ALICJA Not Available Start: 01-24-2024 End: 01-24-2024 ambulatory ELLY ALICJA Not Available Start: 01-13-2024 End: 01-13-2024 ambulatory LEYLA BUSTILLOS Not Available Start: 12-31-2023 End: 12-31-2023 ambulatory MD Avila Vieyra Work Phone: [facility] Work Phone: Start: 12-31-2023 End: 12-31-2023 Patient encounter procedure MD Avila Vieyra Work Phone: [facility] Work Phone: Start: 12-27-2023 End: 12-27-2023 ambulatory MAHI DENG Not Available Start: 11-27-2023 End: 11-27-2023 ambulatory MD Avila Vieyra Work Phone: [facility] Work Phone: Start: 11-27-2023 End: 11-27-2023 Patient encounter procedure MD Avila Vieyra Work Phone: [facility] Work Phone: Start: 11-04-2023 End: 11-04-2023 Departed Referred MD Avila Vieyra Work Phone: [facility] Start: 09-21-2022 End: 09-21-[address] MAHI [...] Start: 10-26-2023 Mammography Elly ANGEL Work Phone: section Luke Fish Dilation and curettage Angel preston REIS Endometrial ablation Luke REIS Ligation of fallopian tube Jacoby REIS Ultrasonography guid ed biopsy of right breast Luke REIS Plan of Treatment Date Care Activity Detail Author Start: 09-22-2027 Screening for malignant neoplasm of cervix [facility] Start: 11-07-2026 Screening for malignant neoplasm of cervix Pap Smear [facility] Start: 11-18-2025 End: 11-18-2025 Patient encounter procedure 11/18/2025 10:00 AM EDT Office Visit [facility] [address] [place] [address] Mahi Deng DO [address], [place] [address] [facility] Start: 03-04-2025 Influenza vaccination Influenz a Vaccine (Season Ended) [facility] Start: 11-12-2024 End: 11-12-2024 Patient encounter procedure [facility] Comment on above: Arrived Start: 10-25-2024 Screening for malignant neoplasm of breast Mammogram [facility] Start: 04-23-2024 End: 04-23-2024 Patient encounter procedure [facility] Comment on above: Arrived Start: 03-26-2024 End: 03-26-2024 Patient encounter procedure 03/26/2024 8:50 AM EDT Office Visit [facility] [address] [place] [address] Elly Helm PA [address] [place], [place] [id number] [facility] Start: 03-04-2024 Influenza vaccination Influenza Vacc ine (#1) [facility] Start: 02-27-2024 End: 02-27-2024 Patient encounter procedure 02/27/2024 8:30 AM EDT Office Visit [facility] [address] [place] [address] Elly Helm PA [address] [place] [address] Arrived [facility] Comment on above: Arrived Start: 1980 Screening for malignant neoplasm of colon [facility] THIN PREP TIS PAP AN D HR HPV DNA THIN PREP TIS PAP AND HR HPV DNA Pathology and Cytology Routine Well woman exam with routine gynecological exam Ordered: 11/12/2024 [facility] Work Phone: Comment on above: Ordered: 11/12/2024 [facility] Immunizations Immunization Date Immunization Notes Care Provider Fa cility 04-09-2009 influenza virus vacc ine, whole virus Elly ANGEL Work Phone: [facility] 04-09-2009 influenza virus vacc ine, unspecified formulation Elly ANGEL Work Phone: [facility] Payers Date Payer Category Payer [facility] BCBS [id number] 2021 Unknown BCBS BCBS [id number] 2021-Present [phone] [address] [place] [address] [id number] 1979 Unknown [id number] .[id number] 1979 Unknown [id number] [id number] .[id number] 1979 Unknown [id number] [id number] .2.9 1979 Unknown [id number] [id number] .2.1259 1979 Unknown [id number] [id number] .2.9 1979 Unknown [id number] [id number] .2.9 1979 Unknown [id number] [id number] .2.9 1979 Unknown [id number] [id number] .2.1259 1979 Unknown [id number] [id number] .2.9 1979 Unknown [id number] .2.727 1959 Unknown [id number] Private Health Insurance [facility] [id number] Social History Date Type Detail Facility Start: 11-27-2023 End: 12-11-2024 Tobacco smoking status MSIS Never smoked tobacco (finding) [facility] Start: 1980 Sex Assigned At Female [facility] Start: 05-17-2023 Tobacco smoking stat us MSIS Ex-smoker [facility] History of tobacco use Current smoker [facility] History of tobacco use Cigarette Smoker [facility] Start: 05-17-2023 Tobacco use and exposure Smoke less tobacco non-user [facility] Start: 03-26-2024 End: 11-12-2024 Alcoholic beverage [...] to any clubs or organizations such as adventism groups, unions, fraternal or athletic groups, or [...] doctor or pharmacy [SILS] Never [facility] Sexual Orientation [facility] [place] Sex Female (finding) [facility] Notes 02-27-2024 to 12-11-2024 Phylicia Pena MA - 11/12/2024 10:00 AM Lewis Duenas LPN - 04/23/2024 9:40 AM JEANNE Guerra - 03/26/2024 8:50 AM JEANNE Guerra - 02/27/2024 8:30 AM EDT Note Date & Type Note Facility 12-11-2024 Note General Surgery Offi ce/Clinic Note Chief Complaint consultation for colonoscopy HPI Staff 44 year old female presents on consultation from Dr. Deng for screening colonoscopy. Denies abdominal or rectal pain. No rectal bleeding or change in bowel habits Denies nausea, vomiting or weight loss. No previous colonoscopy. No known family history of colon cancer. History of Present Illness 44 yo female with h/o polycystic ovarian syndrome, referred for colorectal screening; denies change in bms or blood in stools, no abd complaints; abd operations significant for and tubal ligation, no previous colonoscopy; no asa or NSAID use; no tobacco use; no fmhx of GI malignancy or IBD. Review of Systems PHQ Score Initial Depression Screen Score: 0 SCORE ROS - Provider Constitutional: no fever, no sweats, no weight loss. Eyes: no glasses, no blurred vision, no visual loss. ENMT: no dentures, no hoarseness, no swallowing difficulties, no hearing loss, no ear infection(s), no nose bleeds. Cardiovascular: normal blood pressure, no chest pain, regular heartbeat, no heart murmur. Respiratory: no shortness of breath, no cough, no asthma, no wheezing. Gastrointestinal: no nausea, no vomiting, no diarrhea, no constipation, no blood in stool, no change in bowel habits, no abdominal pain, no hepatitis. Genitourinary: no kidney stones, no urine infection, no dysuria. Musculoskeletal: no pain, no weakness. Skin: no changing moles, no rash, no skin lumps. Neurologic: no seizures, no epilepsy, no headache. Psychiatric: no emotional or psychiatric problem. Heme/Lymph: no bleeding problems, no anemia, no blood clots, no transfusions. Allergy/Immunologic: no swollen lymph nodes/glands, no IV drug abuse. Other: Additional ROS info: Except as noted in the above Review of Systems and in the History of Present Illness, all other systems have been reviewed and are negative or noncontributory. Physical Exam Vitals & Measurements HR: 72(Peripheral) RR: 16 BP: 130/92 HT: 165 cm HT: 65 in WT: 230.824 lb WT: 104.7 kg BMI: 38.46 HEENT: normal conjunctiva, sclera clear, no scleral icterus, EOM intact, PERRLA, oral mucosa moist without lesions. Neck: trachea midline, no mass, symmetric, no thyromegaly or nodules, no adenopathy Respiratory: lungs CTA, respirations non labored. Cardiovascular: regular rate and rhythm, no murmur, no pedal edema or varicosities. Gastrointestinal: soft, non distended, no tenderness, no masses, no palpable hernias, diastasis recti no, no hepatosplenomegaly; normal bs Lymphatic: no cervical adenopathy, no supraclavicular adenopathy. Musculoskeletal: normal gait, digits and nails without infection, nodes, cyanosis, clubbing. Skin: no rashes, no lesions, no ulcers, no subcutaneous nodules, induration. Psychiatric/Neuro: oriented to time, place, person, judgement normal, affect appropriate for age, insight intact, no focal deficits. Tests:, review of old records completed , Discussed surgical options, risks, and possible complications with patient. Assessment/Plan 1. Screening for malignant neoplasm of colon (Z12.11: Encounter for screening for malignant neoplasm of colon) plan colonoscopy under anesthesia, informed consent obtained. Follow-up No qualifying data available Problem List/Past Medical History Ongoing BMI 38.0-38.9,adult Class 3 obesity PCOS (polycystic ovarian syndrome) Screening for malignant neoplasm of colon Historical No qualifying data Procedure/Surgical History section, Dilation and curettage, Endometrial ablation, Tubal ligation, Ultrasonography guided biopsy of right breast. Medications Multi Vitamins oral tablet, 1 tab(s), Oral, Daily Allergies No Known Allergies No Known Medication Allergies Social History Alcohol - Denies Alcohol Use, 12/11/2024 Substance Abuse - Denies Substance Abuse, 12/11/2024 Tobacco Never (less than 100 in lifetime) Tobacco Use:. Never Smokeless Tobacco Use:., 12/11/2024 Family History Family history is negative [facility] Comment on above: Result Comment: Elec tronically Signed By: SMILEY MONTENEGRO, Luke Rowland\Date and Time Signed: 12/11/24 13:33 EDT 11-12-2024 History of Present illness Narrative Reason for Appointment: Patient ID: [...] 05/05/2023 Body mass index (BMI) 40.0-44.9, adult ([facility]) 05/05/2023 Polycystic ovaries 05/05/2023 Resolved Ambulatory Problems [...] CURETTAGE OF UTERUS 2000 ENDOMETRIAL ABLATION 2019 [place] LAP, SURG, RADFREQ ABLATION OF UTERINE FIBROID(S), [...] nursing note reviewed. Exam conducted with a community outreach director present. Vitals: Estimated body mass index is [...] patient had her mammogram done today at [facility]. Orders Placed This Encounter Procedures POCT urinalysis dipstick manually resulted Follow Up: Patient is to return in one year for annual unless needed otherwise. Documented by Phylicia Pena MA on behalf of: Mahi Deng DO documented in this encounter [facility] 04-23-2024 History of Present illness Narrative Reason for Appointment: Patient ID: [...] 05/05/2023 Body mass index (BMI) 40.0-44.9, adult ([facility]) 05/05/2023 Polycystic ovaries 05/05/2023 Resolved Ambulatory Problems [...] RIGHT BREAST BIOPSY 11/04/2023 SECTION, LOW TRANSVERSE 2008 DILATION AND CURETTAGE 2000 DILATION AND CURETTAGE OF UTERUS 2001 ENDOMETRIAL ABLATION 2019 [place] LAP, SURG, RADFREQ ABLATION OF UTERINE FIBROID(S), [...] nursing note reviewed. Exam conducted with a community outreach director present. Vitals: Estimated body mass index is [...] Mahi Deng DO documented in this encounter [facility] 03-26-2024 History of Present illness Narrative Reason for Appointment: Patient ID: [...] 05/05/2023 Body mass index (BMI) 40.0-44.9, adult ([facility]) 05/05/2023 Polycystic ovaries 05/05/2023 Resolved Ambulatory Problems [...] CURETTAGE OF UTERUS 2000 ENDOMETRIAL ABLATION 2019 [place] LAP, SURG, RADFREQ ABLATION OF UTERINE FIBROID(S), [...] of: JEANNE Peñaloza documented in this encounter [facility] 02-27-2024 History of Present illness Narrative Reason for Appointment: Patient ID: [...] 05/05/2023 Body mass index (BMI) 40.0-44.9, adult ([facility]) 05/05/2023 Polycystic ovaries 05/05/2023 Resolved Ambulatory Problems [...] CURETTAGE 2000 DILATION AND CURETTAGE OF UTERUS 2001 ENDOMETRIAL ABLATION 2019 [place] LAP, SURG, RADFREQ ABLATION OF UTERINE FIBROID(S), [...] documented in this encounter [facility] Evaluation + Plan note No data available for this section [facility] [place] Evaluation note Diagnosis Onset Date Poison vincenzo [facility] Work Phone: Evaluation note* Diagnosis Onset Date Resolution Status Poison vincenzo acute Contact dermatitis [facility] Work Phone: Evaluation note* Diagnosis Weight gain Other symptoms concerning nutrition, metabolism, and development Encounter for weight management documented in this encounter [facility] Healthcare[facility]* Diagnosis Encounter for weight management Weight gain Other symptoms concerning nutrition, metabolism, and development documented in this encounter [facility] Healthcare[facility] note* Diagnosis Weight gain Other symptoms concerning nutrition, metabolism, and development Encounter for weight management documented in this encounter [facility] HealthcareEvaluation note* Diagnosis Well woman exam with routine gynecological exam Routine gynecological examination Encounter for screening mammogram for malignant neoplasm of breast documented in this encounter [facility] Discharge instructions No data available for this section [facility] [place] Progress note No data available for this section [facility] [place] Summary Purpose Family History No Family History Records FoundNo Family History Records FoundNo Family History Records Found No data available for this section No Family History Records Found Advance Directives No Advanced Directives Records Found Advance Directive Response Recorded Date/ Time Advance Directives No November 26 2:30pm Additional Source Comments INFORMATION SOURCE (unrecogn ized section and content) DATE CREATED AUTHOR 12/03/2021 [facility] dical Specialist DATE CREATED AUTHOR AUTHOR'S ORGANIZ ATION 10/01/2022 [facility] pital DATE CREATED AUTHOR AUTHOR'S ORGANIZ ATION 11/12/2024 [facility] dical Specialists EPIC DATE CREATED AUTHOR AUTHOR'S ORGANIZ ATION 12/13/2024 [facility] Care Teams (unrecognized sec tion and content) [...] December 31, 2023 End: December 31, 2023 Plush Brusher Relationship Specialty Start Date End Date Lucy Hanson MD [address] [place] [address] PCP - General 12/21/22 Leyla Bustillos NP [address] [place] [address] PCP - [place] [employer] 03/04/24 Plush Brusher Relationship Specialty Start Date End Date Lucy Hanson MD [address] [place] [address] PCP - General 12/21/22 Leyla Bustillos NP [address] [place] [address] PCP - [place] [employer] 03/04/24 Plush Brusher Relationship Specialty Start Date End Date Lucy Hanson MD [address] [place] [address] PCP - General 12/21/22 Plush Brusher Relationship Specialty Start Date End Date Lucy Hanson MD [address] [place] [address] PCP - General 12/21/22 Plush Brusher Relationship Specialty Start Date End Date Lucy Hanson MD [address] [place] [address] PCP - General 12/21/22 Plush Brusher Relationship Specialty Start Date End Date Lucy Hanson MD [address] [facility] [place] [address] PCP - General 12/21/22 Plush Brusher Relationship Specialty Start Date End Date Lucy Hanson MD [address] [facility] [address] [place] [id number] PCP - General 12/21/22 Goals (unrecognized section and content) Goals may be documented in a n alternate sectionGoals may be documented in an alternate section No data available for this section Reason for Visit (unrecogniz ed section [...] BE BASED ON THE PRIMARY CLINICAL RECORDS. [facility] [employer] [facility]. provides no warranty or guarantee of the accuracy or completeness of information in this document.
== END 2024-12-20 10:11 | disposition home or self-care (01) ==
LOC: PST 10:11
PROVIDERS: PCP Family Medicine; Visit Provider Surgery
DX: Z01.818 Encounter for other preprocedural examination (principal); Z12.11 Encounter for screening for malignant neoplasm of colon

== ENCOUNTER 2024-12-26 06:33 | Day surgery (SDC) | payer BC, SELFPAY ==
--- NOTE | 2024-12-26 | OP_ITS ---
OPERATION DATE: 12/26/2024 PREOPERATIVE DIAGNOSIS: Colorectal screening. POSTOPERATIVE DIAGNOSIS: Normal colonoscopy to cecum. PROCEDURE: Colonoscopy to cecum. SURGEON: Luke Colin M.D. ANESTHESIA: Monitored anesthesia care. ESTIMATED BLOOD LOSS: Zero. INDICATIONS AND CONSENT: Patient is a 44-year-old female, presents for colorectal screening. Indications, risks, benefits, alternatives of proceeding with colonoscopy were explained extensively to the patient, including the risks of bleeding, colon perforation or anesthetic complications. All of her questions were answered. Informed consent was obtained. PROCEDURE: Patient brought to the operating room, placed in the left lateral decubitus position. Monitored anesthesia care was provided. Rectal exam was performed which showed no masses or blood. The scope was inserted into the anal canal. Under direct visualization was advanced. It was advanced to the cecum where cecal markings were clearly identified. There was noted to be a good prep. Upon withdrawal of the scope, mucosal surfaces were carefully examined. There were no mass lesions or polyps. No inflammatory changes or ulcerations. No significant diverticulosis. The scope was retroflexed in the anal canal. There was no significant hemorrhoidal disease. The scope was then withdrawn. Patient tolerated procedure well, was sent to recovery room in good condition. Follow up screening colonoscopy should be in 10 years. CC: Lucy Snowden M.D. DANIEL
--- OUTSIDE RECORDS SUMMARY | 2024-12-26 06:37 | XMS_ITS | Encounter Summary ---
Author Organization [facility] Address [address] [place] [address] Care Team Providers Care Boiler Tube Reamer Name Role Phone Lucy Snowden MD Primary Care Provider [phone] Kerri Bustillos [employer] P[employer] Unavailable [phone] Encounter Details Date Type Department Care Team (Late st Contact Info) Description 01/02/2024 Abstract [facility] [address] [place] [address] Lucy Snowden MD [address] [place] [address] Social History Tobacco Use Types Packs/Day Years Used Date Smoking Tobacco: Former Cigarettes Smokeless Tobacco: Never Alcohol Use Standard Drinks/Week Comments Yes 2 (1 standard drink = 0.6 oz pure alcohol) 3or 4 drinks , monthly or less ; 6 or more on one occasiona /weekly. Caffeine: 1-2 cups/day coffee AUDIT-C Answer Date Recorded Q1: How often do you have a drink containing alc ohol? Monthly or less 05/17/2023 Q2: How many drinks containi ng alcohol do you have on a typical day when you are drinking? 3 or 4 05/17/2023 Q3: How often do you have si x or more drinks on one occasion? Less than monthly 05/17/2023 PHQ-2 Answer Date Recorded Patient Health Questionnaire-2 Score 0 05/17/2023 Comments No Sex and Gender Information Value Date Recorded Sex Assigned at Female 12/21/2022 1:25 PM EDT Legal Sex Female 6:43 PM EDT Gender Identity Not on file Sexual Orientation Asexual 12/21/2022 1: 25 PM EDT documented as of this encounter Plan of Treatment Upcoming Encounters Date Type Department Care Team (Late st Contact Info) Description 11/18/2025 10:00 AM EDT Office Visit [facility] [address] [address] Rick Deng, [address] [place] [address] [place] [address] documented as of this encounter Visit Diagnoses Not on filedocumented in this encounter Care Teams Boiler Tube Reamer Relationship Specialty Start Date End Date Lucy Snowden MD [address] [place], [place] [id number] PCP - General 12/21/22 Kerri Bustillos NP [address] [place], [place] [id number] PCP - Jovanny Lott 03/04/24 documented as of this encounter
--- OUTSIDE RECORDS SUMMARY | 2024-12-26 06:37 | XMS_ITS | Encounter Summary ---
Author Organization [facility] Address [address] [place] [address] Care Team Providers Care Signal Timer Name Role Phone Lucy Snowden MD Primary Care Provider [phone] Puja Pathak NEWS LIBRARY DIRECTOR Unavailable [phone] Lucy Snowden MD Unavailable [phone] Kerri Bustillos NEWS LIBRARY DIRECTOR Unavailable [phone] Encounter Details Date Type Department Care Team ([facility] Contact Info) Description 12/21/2022 Abstract [facility] [address] [facility] [place] [id number] Rick Deng, DO [address] [facility] [address] [place], [place] [id number] Social History Tobacco Use Types Packs/Day Years Used Date Smoking Tobacco: Former Cigarettes Tobacco Cessation:Counseling Given: Not Answered Alcohol Use Standard Drinks/Week Comments Not Asked 0 (1 standard drink = 0.6 oz pure alcohol) 3or 4 drinks , monthly or less ; 6 or more on one occasiona /weekly. Caffeine: 1-2 cups/day coffee Comments Unknown Sex and Gender Information Value Date Recorded Sex Assigned at Female 12/21/2022 1:25 PM EDT Legal Sex Female 6:43 PM EDT Gender Identity Not on file Sexual Orientation Asexual 12/21/2022 1: 25 PM EDT COVID-19 Exposure Response Date Recorded In the last 10 days, have yo u been in contact with someone who was confirmed or suspected to have Coronavirus/COVID-19? No / Unsure 12/21/2022 1:27 PM EDT documented as of this encounter Plan of Treatment Upcoming Encounters Date Type Department Care Team (Late Contact Info) Description 11/18/2025 10:00 AM EDT Office Visit [facility] [address] [facility] [facility] [address] Rick Deng, [address] [place] [address] [address] [place], [place] [id number] documented as of this encounter Visit Diagnoses Not on filedocumented in this encounter Care Teams Signal Timer Relationship Specialty Start Date End Date Lucy Snowden MD [address] [place] [address] PCP - General 12/21/22 Puja Pathak NP [address] [place] [address] PCP - [employer] 01/01/2307/03 Lucy Snowden MD [address] [place] [address] PCP - [employer] 07/04/23 Kerri Bustillos NP [address] [place] [address] PCP - [employer] 03/04/24 documented as of this encounter
--- OUTSIDE RECORDS SUMMARY | 2024-12-26 06:37 | XMS_ITS | CCD ---
Author Organization [facility] Care Team Providers Care Accounting Intern Name Role Phone SOWMYA ., DR CHAMPAGNE [...] Attending Unavailable LUCY HANSON Primary Care Physician [phone] Mahi DENG Referring Unavailable Luek RESI Attending Unavailable Allergies Allergy Classification Reported Allergen(s) Allergy Type Date of Onset Reaction(s) Facility (1 source) No Known Medication Allergies; Translations: [No Known Medication Allergies] Propensity to adverse reactions (disorder) [facility] Repository Medications Current Medications Medication Drug Class(es) [...] Luke Anaya Primary Care Physician - VALENTIN MONTNEEGRO, LUCY Kelly Referring Physician - Mahi DENG [...] you for choosing us for your care. [facility] MM TOMOSYNTHESIS SCREENING B Ion 11-12-2024 [place] [address] Mammography Report Signed Patient: AGA DAVIS MR#: [id number] : 1980 Acct:[id number] Age/Sex: 44 / F ADM Date: 11/12/24 Loc: MAMMO Attending Dr: Mahi Deng D.O. Ordering Physician: Mahi Deng D.O. Results: Date of Service: 11/12/24 Follow Up: Procedure(s): MM tomosynthesis screening BI Accession Number(s): [id number] cc: Mahi Deng D.O.; LUCY HANSON Patient Name: AGA DAVIS MR#: [id number] : 1980 Exam Date: 11/12/2024 Ordering Doctor: [...] Treatments None Family Cancers None LOCATION: [facility] BREAST COMPOSITION: There are scattered areas [...] Signed By: 11/12/24 1536 DD/ 1535 TD/TT: Surgical Scheduler: [facility] Radiology, Radiologist, MD - 11/12/2024 [place] [address] Mammography Report Signed Patient: AGA DAVIS MR#: [id number] : 1980 Acct:[id number] Age/Sex: 44 / F ADM Date: 11/12/24 Loc: MAMMO Attending Dr: Mahi Deng D.O. Ordering Physician: Mahi Deng D.O. Results: Date of Service: 11/12/24 Follow Up: Procedure(s): MM tomosynthesis screening BI Accession Number(s): [id number] cc: Mahi Deng D.O.; LUCY HANSON Patient Name: AGA DAVIS MR#: [id number] : 1980 Exam Date: 11/12/2024 Ordering Doctor: [...] Treatments None Family Cancers None LOCATION: [facility] BREAST COMPOSITION: There are scattered areas [...] Signed By: 11/12/24 1536 DD/ 1535 TD/TT: Surgical Scheduler: [facility] Radiology Study observation (narrative) [facility] MM TOMOSYNTHESIS SCREENING B IOrdered By: Radiologist Radiology on 11-12-2024 [facility] [employer] Work Phone: Urinalysis macro (dipstick) panel (U)on 11-12-2024 Bilirubin, UA Negative Negative - 4(70) +++ mg/dL [facility] Blood, UA Negative Negative - 50 Petey/mcL [facility] Clarity, UA Clear [facility] Pocket[employer]ca re Color, UA Yellow [facility] [employer] Glucose, UA Negative Negative - 2000(110) ++++ mg/dL [facility] Interpretation and review of laboratory results Normal [facility] Ketones, UA Negative Negative - 160(16) ++++ mg/dL [facility] Leukocytes, UA Negative Negative - 500+++ Bernie/mcL [facility] Nitrite, UA Negative Negative - Positive [facility] pH, UA 6 5 - 9 [facility] Health[facility] Protein, UA Negative Negative - 2000(20) ++++ mg/dL [facility] Spec Grav, UA 1.02 1 - 1.03 [facility] Urobilinogen, UA 0.2 0.2 - 12 mg/dL [facility] PAP ACOG PANEL 2: 30 to 65on 09-28-2022 . . Normal [facility] Comment on above: Result Comment: Perf ormed at: WB Performed By: #### [id number] #### [facility] [address] [address] [address] Allan Flowers Age Gdln ACOG Testing [facility] Comment on above: Performed By: #### [id number] #### [facility] [address] [address] [address] Allan Flowers DIAGNOSIS: Comment [facility] Comment on above: Result Comment: NEGA TIVE FOR INTRAEPITHELIAL LESION OR MALIGNANCY. Performed at: WB Performed By: #### [id number] #### [facility] [address] [address] [address] Allan Flowers HPV Aptima Negative Normal [facility] Comment on above: Result Comment: This nucleic acid amplification test detects fourteen high-risk HPV types (16,18,31,33,35,39,45,51,52,56,58,59,66,68) without differentiation. Performed at: =G Performed By: #### [id number] #### [facility] [address] [address] [address] Allan Flowers HPV Genotype Reflex Comment Normal [facility] Comment on above: Result Comment: Crit eria not met, HPV Genotype not performed. Performed at: WB Performed By: #### [id number] #### [facility] [address] [address] [address] Allan Flowers Methodology: Comment [facility] Comment on above: Result Comment: This liquid based ThinPrep(R) pap test was screened with the use of an image guided system. Performed at: WB Performed By: #### [id number] #### [facility] [address] [place] [address] Dr. Allan Flowers Note: Comment Normal [facility] Comment on above: Result Comment: The Pap smear is a screening test designed to aid in the detection of premalignant and malignant conditions of the uterine cervix. It is not a diagnostic procedure and should not be used as the sole means of detecting cervical cancer. Both false-positive and false-negative reports do occur. . Performed at: WB Performed By: #### [id number] #### [facility] [address] [address] [address] Allan Flowers Performed by: Comment Normal [facility] Comment on above: Result Comment: Jacqueline Hartman, Supervisory Swine Genetics Researcher (ASCP) Performed at: WB Performed By: #### [id number] #### [facility] [address] [place] [address] Dr. Allan Flowers Specimen adequacy: Comment Normal [facility] Comment on above: Result Comment: Sati sfactory for evaluation. No endocervical component is identified. Performed at: WB Performed By: #### [id number] #### [facility] [address] [place] [address] Dr. Allan Flowers MG MAMM SCREEN 3D CHASIDY CADon 09-21-2022 MG MAMM SCREEN 3D CHASIDY CAD Patient: AGA DAVIS Exam Date: 09/21/2022 : 1980 Gender:F Ordering : DR MAHI DENG . Admission #: [id number] Family : Order #: [id number] CLICK HERE TO VIEW EXAM RADIOLOGY REPORT PROCEDURE: MAMMOGRAM SCREENING 3D BILATERAL CAD COMPARISON: MG MAMM SCREEN 3D CHASIDY CAD, 10/29/2020. INDICATIONS: Screening mammography Calculator Name NCI Breast Cancer Risk Assessment Tool 5 Year Breast Cancer Risk 0.90% Lifetime Breast Cancer Risk 11.80% Personal Breast Cancer No Personal Ovarian Cancer No Treatments None Family Cancers None LOCATION: [facility] BREAST COMPOSITION: Scattered areas fibroglandular density. [...] Wasserman M.D. on 09/22/2022 at 08:33 Normal [facility] Complete Blood Count with Au to Diffon 12-02-2021 Basophils (Bld) [#/Vol] 0.06 10*3/uL Normal 0.00-0.20 [facility] Specialist Comment on above: Performed By: #### V ITD, TSH reflex FT4, CBCAD, LIPD, CMP #### [facility] [address], [place] [id number] Basophils/100 WBC (Bld) 0.8 % Normal [facility] Comment on above: Performed By: #### V ITD, TSH reflex FT4, CBCAD, LIPD, CMP #### [facility] [address], [place] [id number] Eosinophils (Bld) [#/Vol] 0.31 10*3/uL Normal 0.02-0.50 [facility] Comment on above: Performed By: #### V ITD, TSH reflex FT4, CBCAD, LIPD, CMP #### [facility] [address], [place] [id number] Eosinophils/100 WBC (Bld) 4.4 % Normal [facility] Comment on above: Performed By: #### V ITD, TSH reflex FT4, CBCAD, LIPD, CMP #### [facility] [address], [place] [id number] Erythrocyte distribution width (RBC) [Ratio] 13.3 % Normal 11.0-15.0 [facility] Comment on above: Performed By: #### V ITD, TSH reflex FT4, CBCAD, LIPD, CMP #### [facility] [address], [place] [id number] Hematocrit (Bld) [Volume fraction] 36.2 % Normal 35.0-47.0 [facility] Specialist Comment on above: Performed By: #### V ITD, TSH reflex FT4, CBCAD, LIPD, CMP #### [facility] [address], [place] [id number] Hemoglobin (Bld) [Mass/Vol] 11.3 g/dL Low 11.6-15.5 [facility] Comment on above: Performed By: #### V ITD, TSH reflex FT4, CBCAD, LIPD, CMP #### [facility] [address], [place] [id number] Lymphocytes (Bld) [#/Vol] 1.8 10*3/uL Normal 0.9-3.9 [facility] Comment on above: Performed By: #### V ITD, TSH reflex FT4, CBCAD, LIPD, CMP #### [facility] [address], [place] [id number] Lymphocytes/100 WBC (Bld) 25.5 % Normal [facility] Special[facility] Comment on above: Performed By: #### V ITD, TSH reflex FT4, CBCAD, LIPD, CMP #### [facility] [address], [place] [id number] MCH (RBC) [Entitic mass] 27.2 pg Normal 27.0-33.0 [facility] Comment on above: Performed By: #### V ITD, TSH reflex FT4, CBCAD, LIPD, CMP #### [facility] [address], [place] [id number] MCHC (RBC) [Mass/Vol] 31.2 g/dL Low 32.0-36.0 [facility] Comment on above: Performed By: #### V ITD, TSH reflex FT4, CBCAD, LIPD, CMP #### [facility] [address], [place] [id number] MCV (RBC) [Entitic vol] 87 fL Normal 80-100 [facility] Special[facility] Comment on above: Performed By: #### V ITD, TSH reflex FT4, CBCAD, LIPD, CMP #### [facility] [address], [place] [id number] Monocytes (Bld) [#/Vol] 0.5 10*3/uL Normal 0.2-0.9 [facility] Comment on above: Performed By: #### V ITD, TSH reflex FT4, CBCAD, LIPD, CMP #### [facility] [address], [place] [id number] Monocytes/100 WBC (Bld) 6.5 % Normal [facility] Comment on above: Performed By: #### V ITD, TSH reflex FT4, CBCAD, LIPD, CMP #### [facility] [address], [place] [id number] Neutrophils (Bld) [#/Vol] 4.4 10*3/uL Normal 1.5-7.8 [facility] Comment on above: Performed By: #### V ITD, TSH reflex FT4, CBCAD, LIPD, CMP #### [facility] [address], [place] [id number] Neutrophils/100 WBC (Bld) 62.4 % Normal [facility] Comment on above: Performed By: #### V ITD, TSH reflex FT4, CBCAD, LIPD, CMP #### [facility] [address], [place] [id number] Platelet mean volume (Bld) [Entitic vol] 11.40 fL Normal 7.50-12.50 [facility] Comment on above: Performed By: #### V ITD, TSH reflex FT4, CBCAD, LIPD, CMP #### [facility] [address], [place] [id number] Platelets (Bld) [#/Vol] 309 10*3/uL Normal 140-400 [facility] Special[facility] Comment on above: Performed By: #### V ITD, TSH reflex FT4, CBCAD, LIPD, CMP #### [facility] [address], [place] [id number] RBC (Bld) [#/Vol] 4.16 10*6/uL Normal 3.90-5.20 [facility] Specialist Comment on above: Performed By: #### V ITD, TSH reflex FT4, CBCAD, LIPD, CMP #### [facility] [address], [place] [id number] RDW-SD 42.5 fL Normal 37.0-50.0 [facility] T[facility] Down Worker Comment on above: Performed By: #### V ITD, TSH reflex FT4, CBCAD, LIPD, CMP #### [facility] [address], [place] [id number] WBC (Bld) [#/Vol] 7.1 10*3/uL Normal 3.8-11.0 [place] [facility] Comment on above: Performed By: #### V ITD, TSH reflex FT4, CBCAD, LIPD, CMP #### [facility] [address], [place] [id number] Comprehensive Metabolic Pane [facility] 12-02-2021 Albumin [Mass/Vol] 4.5 g/dL Normal 3.6-5.1 [place] [facility] [place] [facility] [facility] Comment on above: Performed By: #### V ITD, TSH reflex FT4, CBCAD, LIPD, CMP #### [facility] [address], [place] [id number] Albumin/Globulin [Mass ratio] 2.1 {ratio} Normal 1.0-2.5 [facility] Worker Comment on above: Performed By: #### V ITD, TSH reflex FT4, CBCAD, LIPD, CMP #### [facility] [address], [place] [id number] ALP [Catalytic activity/Vol] 70 U/L Normal 35-119 [facility] Worker Comment on above: Performed By: #### V ITD, TSH reflex FT4, CBCAD, LIPD, CMP #### [facility] [address], [place] [id number] ALT [Catalytic activity/Vol] 15 U/L Normal 6-33 [facility] [employer] Worker Comment on above: Result Comment: 06/03 Female reference range changed. Performed By: #### V ITD, TSH reflex FT4, CBCAD, LIPD, CMP #### [facility] [address], [place] [id number] Anion gap [Moles/Vol] 17 mmol/L Normal 12-20 [facility] Worker Comment on above: Result Comment: Effe ctive 07/09/2019 reference range changed. Performed By: #### V ITD, TSH reflex FT4, CBCAD, LIPD, CMP #### [facility] [address], [place] [id number] AST [Catalytic activity/Vol] 18 U/L Normal 9-34 [facility] Comment on above: Performed By: #### V ITD, TSH reflex FT4, CBCAD, LIPD, CMP #### [facility] [address], [place] [id number] BUN/CREA 21 Ratio Normal 6-22 [facility] Comment on above: Performed By: #### V ITD, TSH reflex FT4, CBCAD, LIPD, CMP #### [facility] [address], [place] [id number] Calcium [Mass/Vol] 9.7 mg/dL Normal 8.6-10.2 [facility] Comment on above: Performed By: #### V ITD, TSH reflex FT4, CBCAD, LIPD, CMP #### [facility] [address], [place] [id number] Chloride [Moles/Vol] 102 mmol/L Normal 98-107 [facility] Comment on above: Performed By: #### V ITD, TSH reflex FT4, CBCAD, LIPD, CMP #### [facility] [address], [place] [id number] CO2 [Moles/Vol] 23 mmol/L Normal 20-31 [facility] Comment on above: Performed By: #### V ITD, TSH reflex FT4, CBCAD, LIPD, CMP #### [facility] [address], [place] [id number] Creatinine [Mass/Vol] 0.9 mg/dL Normal 0.6-1.4 [facility] Comment on above: Performed By: #### V ITD, TSH reflex FT4, CBCAD, LIPD, CMP #### [facility] [address], [place] [id number] eGFRAA 81 mL/min/1.73m2 Normal >60 [facility] Specialist Comment on above: Performed By: #### V ITD, TSH reflex FT4, CBCAD, LIPD, CMP #### [facility] [address], [place] [id number] eGFRNAA 67 mL/min/1.73m2 Normal >60 [facility] T[employer] Worker Comment on above: Performed By: #### V ITD, TSH reflex FT4, CBCAD, LIPD, CMP #### [facility] [address], [place] [id number] Globulin (S) [Mass/Vol] 2.1 g/dL Normal 1.9-3.7 [facility] T[employer] Worker Comment on above: Performed By: #### V ITD, TSH reflex FT4, CBCAD, LIPD, CMP #### [facility] [address], [place] [id number] Glucose [Mass/Vol] 109 mg/dL High 65-99 [place] [employer] Work[facility] Comment on above: Result Comment: For FASTING Glucose --- ADA reference ranges: Normal 65-99 mg/dl Prediabetes 100-125 Diabetes >/= 126 Performed By: #### V ITD, TSH reflex FT4, CBCAD, LIPD, CMP #### [facility] [address], [place] [id number] Potassium [Moles/Vol] 4.0 mmol/L Normal 3.5-5.5 [facility] T[employer] Down Worker Comment on above: Performed By: #### V ITD, TSH reflex FT4, CBCAD, LIPD, CMP #### [facility] [address], [place] [id number] Protein [Mass/Vol] 6.6 g/dL Normal 6.1-8.1 [place] [employer] Work[facility] Comment on above: Performed By: #### V ITD, TSH reflex FT4, CBCAD, LIPD, CMP #### [facility] [address], [place] [id number] Sodium [Moles/Vol] 139 mmol/L Normal 135-146 [place] [employer] Work[facility] Comment on above: Performed By: #### V ITD, TSH reflex FT4, CBCAD, LIPD, CMP #### [facility] [address], [place] [id number] TBIL <0.3 Normal [facility] T[facility] [employer] Worker Comment on above: Performed By: #### V ITD, TSH reflex FT4, CBCAD, LIPD, CMP #### [facility] [address], [place] [id number] Urea nitrogen [Mass/Vol] 19 mg/dL Normal 7-25 [facility] [employer] Worker Comment on above: Performed By: #### V ITD, TSH reflex FT4, CBCAD, LIPD, CMP #### [facility] [address], [place] [id number] Lipid Panelon 12-02-2021 Cholesterol [Mass/Vol] 223 mg/dL High 125-200 [facility] Worker Comment on above: Result Comment: Low risk < 200mg/dL Borderline risk 201-239 mg/dl High risk > or equal to 240 Performed By: #### V ITD, TSH reflex FT4, CBCAD, LIPD, CMP #### [facility] [address], [place] [id number] Cholesterol in HDL [Mass/Vol] 61 mg/dL Normal >40 [facility] [employer] Worker Comment on above: Result Comment: High Cardiovascular Risk HDL <40 mg/dL Low Cardiovascular Risk HDL > or equal to 60 mg/dl Performed By: #### V ITD, TSH reflex FT4, CBCAD, LIPD, CMP #### [facility] [address], [place] [id number] Cholesterol in LDL [Mass/Vol] 128 mg/dL Normal [facility] Worker Comment on above: Result Comment: LDL ATP III CLASSIFICATION LDL less than 100 mg/dl Optimal LDL 100-129 mg/dl Near or above optimal LDL 130-159 Borderline high LDL 160-189 High LDL greater than 189 mg/dl Very High Performed By: #### V ITD, TSH reflex FT4, CBCAD, LIPD, CMP #### [facility] [address], [place] [id number] Cholesterol in VLDL [Mass/Vol] 34 mg/dL Normal [facility] Worker Comment on above: Performed By: #### V ITD, TSH reflex FT4, CBCAD, LIPD, CMP #### [facility] [address], [place] [id number] Cholesterol.total/Ch olesterol in HDL [Mass ratio] 4 {ratio} Normal [facility] Worker Comment on above: Performed By: #### V ITD, TSH reflex FT4, CBCAD, LIPD, CMP #### [facility] [address], [place] [id number] Triglyceride [Mass/Vol] 171 mg/dL High 30-150 [facility] Worker Comment on above: Result Comment: TRIG ATPIII CLASSIFICATIONS TRIG less than 150 mg/dl Normal TRIG 150-199 mg/dl Borderline High TRIG 200-500 mg/dl High TRIG greather than 500 mg/dl Very High Performed By: #### V ITD, TSH reflex FT4, CBCAD, LIPD, CMP #### [facility] [address], [place] [id number] TSH w/ Reflex to Free T4on 0 12-02-2021 TSH 2.760 uIU/mL Normal 0.400-4.500 [facility] T[facility] Down Worker Comment on above: Performed By: #### V ITD, TSH reflex FT4, CBCAD, LIPD, CMP #### [facility] [address], [place] [id number] Vitamin D 25-OHon 12-02-2021 VIT D 25 OH 56 ng/ml Normal >29 [facility] Worker Comment on above: Result Comment: Mendy min D Status Deficiency <20 ng/mL Insufficiency 20-29 ng/mL Optimal 30-100 ng/mL Possible Toxicity >=150 ng/mL Performed By: #### V ITD, TSH reflex FT4, CBCAD, LIPD, CMP #### [facility] [address], [place] [id number] Vital Signs Date Time Vital Sign Value Performing Clinician Facility 11-12-2024 10:18040 Body mass index (BMI) [Ratio] 36.94 kg/m2 [facility] Work Phone: [facility] 11-12-2024 10:18040 Body weight 100.7 kg [facility] Work Phone: [facility] 11-12-2024 10:18040 Diastolic blood pressure 72 mm[Hg] [facility] Work Phone: [facility] 11-12-2024 10:18040 Systolic blood pressure 118 mm[Hg] [facility] Work Phone: [facility] 04-23-2024 10:18-0400 Body mass index (BMI) [Ratio] 36.11 kg/m2 Mahi Sowmya DO Work Phone: [facility] 04-23-2024 10:18-0400 Body weight 98.43 kg Mahi Sowmya DO Work Phone: [facility] 04-23-2024 10:18-0400 Diastolic blood pressure 74 mm[Hg] Mahi Sowmya DO Work Phone: [facility] 04-23-2024 10:18-0400 Systolic blood pressure 118 mm[Hg] Mahi Sowmya DO Work Phone: [facility] 03-26-2024 09:30-0400 Body mass index (BMI) [Ratio] 35.94 kg/m2 Elly Midland PA Work Phone: [facility] 03-26-2024 09:30-0400 Body weight 97.98 kg Elly Alicja PA Work Phone: [facility] 03-26-2024 09:30-0400 Diastolic blood pressure 70 mm[Hg] Elly Midland PA Work Phone: [facility] 03-26-2024 09:30-0400 Systolic blood pressure 112 mm[Hg] Elly Midland PA Work Phone: [facility] 02-27-2024 08:32-0400 Body mass index (BMI) [Ratio] 36.78 kg/m2 Elly Alicja PA Work Phone: [facility] 02-27-2024 08:32-0400 Body weight 100.25 kg Elly Midland PA Work Phone: [facility] 02-27-2024 08:32-0400 Diastolic blood pressure 70 mm[Hg] Elly Midland PA Work Phone: [facility] 02-27-2024 08:32-0400 Systolic blood pressure 110 mm[Hg] Elly Midland PA Work Phone: [facility] 12-31-2023 09:35-0400 Body height 157.48 cm MD Avila Vieyra Work Phone: [facility] 12-31-2023 09:35-0400 Body mass index (BMI) [Ratio] 40.4 kg/m2 MD Avila Vieyra Work Phone: [facility] 12-31-2023 09:35-0400 Body weight 100.24 kg MD Avila Vieyra Work Phone: [facility] 12-31-2023 09:35-0400 Diastolic blood pressure 78 mm[Hg] MD Avila Vieyra Work Phone: [facility] 12-31-2023 09:35-0400 Heart rate 93 /min MD Avila Vieyra Work Phone: [facility] 12-31-2023 09:35-0400 Respiratory rate 18 /min MD Avila Vieyra Work Phone: [facility] 12-31-2023 09:35-0400 SaO2% (BldA) [Mass fraction] 96 % MD Avila Vieyra Work Phone: [facility] 12-31-2023 09:35-0400 Systolic blood pressure 114 mm[Hg] MD Avila Vieyra Work Phone: [facility] 11-27-2023 14:37-0400 Body height 157.48 cm MD Avila Vieyra Work Phone: [facility] 11-27-2023 14:37-0400 Body mass index (BMI) [Ratio] 41 kg/m2 MD Avila Vieyra Work Phone: [facility] 11-27-2023 14:37-0400 Body temperature 98.6 [degF] MD Avila Vieyra Work Phone: [facility] 11-27-2023 14:37-0400 Body weight 101.74 kg MD Avila Vieyra Work Phone: [facility] 11-27-2023 14:37-0400 Diastolic blood pressure 86 mm[Hg] MD Avila Vieyra Work Phone: [facility] 11-27-2023 14:37-0400 Heart rate 79 /min MD Avila Vieyra Work Phone: [facility] 11-27-2023 14:37-0400 Respiratory rate 16 /min MD Avila Vieyra Work Phone: [facility] 11-27-2023 14:37-0400 SaO2% (BldA) [Mass fraction] 99 % MD Avila Vieyra Work Phone: [facility] 11-27-2023 14:37-0400 Systolic blood pressure 123 mm[Hg] MD Avila Vieyra Work Phone: [facility] Encounters Encounter Date Encounter Type Care Provider Facility Start: 12-11-2024 End: 12-11-2024 ambulatory Mahi R SOWMYA Facility: [facility] Start: 12-11-2024 End: 12-11-2024 Patient encounter procedure Luke Anaya SMILEY [facility] [place] Start: 11-15-2024 ambulatory Mahi SOWMYA Facility:[facility] Start: 11-12-2024 End: 11-12-2024 Bamboo flowsheet Mahi [...] Bamboo flowsheet Mahi Sowmya DO Work Phone: [facility] Start: 04-23-2024 End: 04-23-2024 Office outpatient visit 15 minutes Mahi Sowmya DO Work Phone: [facility] Comment on above: Weight gain; Encounter for weight management Start: 04-23-2024 End: 04-23-2024 ambulatory MAHI SOWMYA Not Available Start: 03-26-2024 End: 03-26-2024 Bamboo flowsheet Elly Helm PA Work Phone: [facility] Start: 03-26-2024 End: 03-26-2024 Bamboo flowsheet Elly Helm PA Work Phone: [facility] Start: 03-26-2024 End: 03-26-2024 ambulatory ELLY ALICJA Not Available Start: 03-26-2024 End: 03-26-2024 Office outpatient visit 15 minutes Elly Helm PA Work Phone: [facility] Comment on above: Weight gain; Encounter for weight management Start: 02-27-2024 End: 02-27-2024 Bamboo flowsheet Elly Helm PA Work Phone: [facility] Start: 02-27-2024 End: 02-27-2024 Bamboo flowsheet Elly Alicja PA Work Phone: [facility] Start: 02-27-2024 End: 02-27-2024 Office outpatient visit 15 minutes Elly Helm PA Work Phone: [facility] Comment on above: Encounter for weight management; Weight gain Start: 02-27-2024 End: 02-27-2024 ambulatory ELLY ALICJA Not Available Start: 01-24-2024 End: 01-24-2024 ambulatory ELLY ALICJA Not Available Start: 01-13-2024 End: 01-13-2024 ambulatory LEYLA BUSTILLOS Not Available Start: 12-31-2023 End: 12-31-2023 ambulatory MD Avila Vieyra Work Phone: [facility] Work Phone: Start: 12-31-2023 End: 12-31-2023 Patient encounter procedure MD Avila Vieyra Work Phone: [facility] Work Phone: Start: 12-27-2023 End: 12-27-2023 ambulatory MAHI DENG Not Available Start: 11-27-2023 End: 11-27-2023 ambulatory MD Avila Vieyra Work Phone: [facility] Work Phone: Start: 11-27-2023 End: 11-27-2023 Patient encounter procedure MD Avila Vieyra Work Phone: [facility] Work Phone: Start: 11-04-2023 End: 11-04-2023 Departed Referred MD Avila Vieyra Work Phone: [facility] Start: [...] 09-22-2027 Screening for malignant neoplasm of cervix [facility] Start: 11-07-2026 Screening for malignant neoplasm of cervix Pap Smear [facility] Start: 11-18-2025 End: 11-18-2025 Patient encounter procedure 11/18/2025 10:00 AM EDT Office Visit [facility] [address] [facility] [address] [place] [address] Mahi Deng DO [address], [place] [address] [facility] Start: 03-04-2025 Influenza vaccination Influenz a Vaccine (Season Ended) [facility] Start: 11-12-2024 End: 11-12-2024 Patient encounter procedure [facility] Comment on above: Arrived Start: 10-25-2024 Screening for malignant neoplasm of breast Mammogram [facility] Start: 04-23-2024 End: 04-23-2024 Patient encounter procedure [facility] Comment on above: Arrived Start: 03-26-2024 End: 03-26-2024 Patient encounter procedure 03/26/2024 8:50 AM EDT Office Visit [facility] [address] [facility] [place] [address] Elly Helm PA [address] [place], [place] [id number] [facility] Start: 03-04-2024 Influenza vaccination Influenza Vacc ine (#1) [facility] Start: 02-27-2024 End: 02-27-2024 Patient encounter procedure 02/27/2024 8:30 AM EDT Office Visit [facility] OB [address] [facility] [place] [address] Elly Helm PA [address] [facility] [place] [address] Arrived [facility] Comment on above: Arrived Start: 1980 Screening for malignant neoplasm of colon [facility] THIN PREP TIS PAP AN D HR HPV DNA THIN PREP TIS PAP AND HR HPV DNA Pathology and Cytology Routine Well woman exam with routine gynecological exam Ordered: 11/12/2024 [facility] Work Phone: Comment on above: Ordered: 11/12/2024 [facility] Immunizations Immunization Date Immunization Notes Care Provider Fa cility 04-09-2009 influenza virus vacc ine, whole virus Elly ANGEL Work Phone: [facility] 04-09-2009 influenza virus vacc ine, unspecified formulation Elly ANGEL Work Phone: [facility] Payers Date Payer Category Payer [facility] BCBS [id number] 2021 Unknown BCBS BCBS [id number] 2021-Present [phone] [address] [place] [address] [id number] 1980 Unknown [id number] [id number] .2.593 1979 Unknown [id number] [id number] .2.593 1979 Unknown [id number] 2.16.840.1.498116.3.579 .2.9 1979 Unknown [id number] 2.16.840.1.752359.3.579 .2.1259 1979 Unknown [id number] 2.16.840.1.996232.3.579 .2.9 1979 Unknown [id number] 2.16.840.1.889211.3.579 .2.9 1979 Unknown [id number] 2.16.840.1.302534.3.579 .2.9 1979 Unknown [id number] 2.16.840.1.854768.3.579 .2.1259 1979 Unknown [id number] 2.16.840.1.859398.3.579 .2.9 1979 Unknown [id number] [id number] .2.727 1959 Unknown [id number] Private Health Insurance [facility] [id number] Social History Date Type Detail Facility Start: 11-27-2023 End: 12-11-2024 Tobacco smoking status NJIS Never smoked tobacco (finding) [facility] Start: 1980 Sex Assigned At Female F [facility] Start: 05-17-2023 Tobacco smoking stat us NJIS Ex-smoker [facility] History of tobacco use Current smoker [facility] History of tobacco use Cigarette Smoker [facility] Start: 05-17-2023 Tobacco use and exposure Smoke less tobacco non-user [facility] Start: 03-26-2024 End: 11-12-2024 Alcoholic beverage [...] to any clubs or organizations such as voodoo groups, unions, fraternal or athletic groups, or [...] pharmacy [SILS] Never [facility] Sexual Orientation [facility] General Surgery [place] Sex Female (finding) [facility] Clinical Notes 02-27-2024 to 12-11-2024 Phylicia Pena MA - 11/12/2024 10:00 AM Lewis Duenas LPN - 04/23/2024 9:40 AM JEANNE Guerra - 03/26/2024 8:50 AM JEANNE Guerra - 02/27/2024 8:30 AM EDT Note Date & Type Note Facility 12-11-2024 Note General Surgery Offi ce/Clinic Note Chief Complaint consultation for colonoscopy HPI Staff 44 year old female presents on consultation from Dr. eDng for screening colonoscopy. Denies abdominal or rectal [...] 12/11/2024 Family History Family history is negative [facility] Comment on above: Result Comment: Elec tronically [...] 05/05/2023 Body mass index (BMI) 40.0-44.9, adult ([facility]) 05/05/2023 Polycystic ovaries 05/05/2023 Resolved Ambulatory [...] CURETTAGE OF UTERUS 2000 ENDOMETRIAL ABLATION 2019 [place] LAP, SURG, RADFREQ ABLATION OF UTERINE FIBROID(S), [...] nursing note reviewed. Exam conducted with a records associate present. Vitals: Estimated body mass index is [...] had her mammogram done today at [facility]. Orders Placed This Encounter Procedures POCT urinalysis dipstick manually resulted Follow Up: Patient is to return in one year for annual unless needed otherwise. Documented by Phylicia Pena MA on behalf of: Mahi Deng DO documented in this encounter [facility] 04-23-2024 History of Present illness Narrative Reason [...] 05/05/2023 Body mass index (BMI) 40.0-44.9, adult ([facility]) 05/05/2023 Polycystic ovaries 05/05/2023 Resolved Ambulatory [...] CURETTAGE OF UTERUS 2001 ENDOMETRIAL ABLATION 2019 [place] LAP, SURG, RADFREQ ABLATION OF UTERINE FIBROID(S), [...] nursing note reviewed. Exam conducted with a records associate present. Vitals: Estimated body mass index is [...] Mahi Deng DO documented in this encounter [facility] 03-26-2024 History of Present illness Narrative Reason [...] 05/05/2023 Body mass index (BMI) 40.0-44.9, adult ([facility]) 05/05/2023 Polycystic ovaries 05/05/2023 Resolved Ambulatory [...] CURETTAGE OF UTERUS 2000 ENDOMETRIAL ABLATION 2019 [place] LAP, SURG, RADFREQ ABLATION OF UTERINE FIBROID(S), [...] of: JEANNE Peñaloza documented in this encounter [facility] 02-27-2024 History of Present illness Narrative Reason [...] 05/05/2023 Body mass index (BMI) 40.0-44.9, adult ([facility]) 05/05/2023 Polycystic ovaries 05/05/2023 Resolved Ambulatory [...] CURETTAGE OF UTERUS 2001 ENDOMETRIAL ABLATION 2019 [place] LAP, SURG, RADFREQ ABLATION OF UTERINE FIBROID(S), [...] note No data available for this section [facility] General Surgery [place] Evaluation note Diagnosis Onset Date Poison vincenzo [facility] Work Phone: Evaluation note* Diagnosis Onset Date Resolution Status Poison vincenzo acute Contact dermatitis [facility] Work Phone: Evaluation note* Diagnosis Weight gain Other symptoms concerning nutrition, metabolism, and development Encounter for weight management documented in this encounter [facility] Healthcare[facility] note* Diagnosis Encounter for weight management Weight gain Other symptoms concerning nutrition, metabolism, and development documented in this encounter [facility] Healthcare[facility]* Diagnosis Weight gain Other symptoms concerning nutrition, metabolism, and development Encounter for weight management documented in this encounter [facility] HealthcareEvaluation note* Diagnosis Well woman exam with routine gynecological exam Routine gynecological examination Encounter for screening mammogram for malignant neoplasm of breast documented in this encounter [facility] Discharge instructions No data available for this section [facility] Surgery [place] Progress note No data available for this section [facility] [place] Summary Purpose Family History No Family History Records FoundNo Family History Records FoundNo Family History Records Found No data available for this section No Family History Records Found Advance Directives No Advanced Directives Records Found Advance Directive Response Recorded Date/ Time Advance Directives No November 26 2:30pm Additional Source Comments INFORMATION SOURCE (unrecogn ized section and content) DATE CREATED AUTHOR 12/03/2021 [facility] dical Specialist DATE CREATED AUTHOR AUTHOR'S ORGANIZ ATION 10/01/2022 [facility] pital DATE CREATED AUTHOR AUTHOR'S ORGANIZ ATION 11/12/2024 [facility] dical Specialists EPIC DATE CREATED AUTHOR AUTHOR'S ORGANIZ ATION 12/13/2024 [facility] Care Teams (unrecognized sec tion and content) [...] December 31, 2023 End: December 31, 2023 Accounting Intern Relationship Specialty Start Date End Date Lucy Hanson MD [address] [facility], [place] [address] PCP - General 12/21/22 Leyla Bustillos NP [address] [facility] [place] [address] PCP - [place] Commercial 03/04/24 Accounting Intern Relationship Specialty Start Date End Date Lucy Hanson MD [address] [facility] [place] [address] PCP - General 12/21/22 Leyla Bustillos NP [address] [facility] [place] [address] PCP - [place] Commercial 03/04/24 Accounting Intern Relationship Specialty Start Date End Date Lucy Hanson MD [address] [facility] [place] [address] PCP - General 12/21/22 Accounting Intern Relationship Specialty Start Date End Date Lucy Hanson MD [address] [facility] [place] [address] PCP - General 12/21/22 Accounting Intern Relationship Specialty Start Date End Date Lucy Hanson MD [address] [facility] [place] [address] PCP - General 12/21/22 Accounting Intern Relationship Specialty Start Date End Date Lucy Hanson MD [address] [facility] [place] [address] PCP - General 12/21/22 Accounting Intern Relationship Specialty Start Date End Date Lucy Hanson MD [address] [facility] [place] [id number] PCP - General 12/21/22 Goals (unrecognized section [...] BE BASED ON THE PRIMARY CLINICAL RECORDS. [facility]. provides no warranty or guarantee of the accuracy or completeness of information in this document.
--- OUTSIDE RECORDS SUMMARY | 2024-12-26 06:37 | XMS_ITS | Encounter Summary ---
Author Organization [facility] Address [address] [place] [address] Care Team Providers Care Fire Safety Manager Name Role Phone Paige Hanson MD Primary Care Provider [phone] Kerri Bustillos [employer]ER Unavailable [phone] Encounter Details Date Type Department Care Team (Late Contact Info) Description 10/26/2023 Clinisync Result Encounter [facility] Department Unsolicited Rick Deng, DO [address] [facility] [address] [place] [address] Social History Tobacco Use Types Packs/Day Years Used Date Smoking Tobacco: Former Cigarettes Smokeless Tobacco: Never Alcohol Use Standard Drinks/Week Comments Yes 0 (1 standard drink = 0.6 oz [...] EDT Office Visit [facility] [address] [facility] [place] [address] Rick Deng DO [address] [facility] [address] [place] [address] documented as of this encounter Procedures Procedure Name Priority Date/Time Associated Diagnosis Comments BI US BREAST LIMITED RIGHT 10/26/2023 1:39 PM EDT documented in this encounter Results * Right breast US limited (10/26/2023 1:39 PM EDT) Anatomical Region Laterality Modality Breast Right Ultrasound 10/26/2023 1:39 PM EDT Narrative 10/26/2023 1:40 PM EDT [address] [address] Ultrasound Report Signed Patient: YULI KNIGHT MR#: [id number] : 1980 Acct:[id number] Age/Sex: 43 / F ADM Date: 10/26/23 Loc: MAMMO Attending Dr: Rick Deng D.O. Ordering Physician: Rick Deng D.O. Date of Service: 10/26/23 Procedure(s): US breast RT limited Accession Number(s): [id number] cc: Rick Deng D.O.; PAIGE HANSON Patient Name: YULI KNIGHT MR#: [id number] : 1980 Exam Date: 10/26/2023 Ordering Doctor: DR Rick Deng . RADIOLOGY REPORT PROCEDURE: MM DIAGNOSTIC MAMMO UNILAT RT, 10/26/2023, 12:00 US BREAST RT LIMITED, 10/26/2023, 13:11 COMPARISON: MM TOMOSYNTHESIS SCREENING BI, 10/11/2023. MG MAMM SCREEN 3D CHASIDY CAD, 09/21/2022. MG MAMM SCREEN 3D CHASIDY CAD, 10/29/2020. INDICATIONS: Follow Up Abnormal Mammogram R92.8 Calculator Name NCI Breast Cancer Risk Assessment Tool 5 Year Breast Cancer Risk 0.90% Lifetime Breast Cancer Risk 11.70% Personal Breast Cancer No Personal Ovarian Cancer No Treatments None Family Cancers None LOCATION: [facility] BREAST COMPOSITION: There are scattered areas of fibroglandular density. FINDINGS: DIAGNOSTIC CATEGORY 4--SUSPICIOUS FOR MALIGNANCY. FINDING DOES NOT EXHIBIT CLASSIC FINDINGS OF BREAST CANCER: RIGHT BREAST: Spot magnification views demonstrate persistence of a 1.1 cm mass within the lower central breast approximately 6 o'clock. Ultrasound evaluation demonstrates a geographic shaped 1.6 x 0.6 x 0.6 cm hypoechoic structure with irregular lemus; complex cyst versus mass. Given its appearance on ultrasound and new appearance on mammography ultrasound-guided tissue sampling is recommended. RECOMMENDATIONS: ULTRASOUND-GUIDED CORE BIOPSY: RIGHT BREAST PLEASE NOTE: A NORMAL MAMMOGRAM DOES NOT EXCLUDE THE POSSIBILITY OF BREAST CANCER. A CLINICALLY SUSPICIOUS PALPABLE LUMP SHOULD BE BIOPSIED. Dictated by: Damian Wasserman M.D. on 10/26/2023 at 13:32 Approved by: Damian Wasserman M.D. on 10/26/2023 at 13:39 Dictated By: Damian Wasserman M.D. Signed By: 10/26/23 1340 DD/ 1339 TD/TT: Dsp Engineer: Procedure Note Radiology, Radiologist, MD - 10/26/2023 [place] [address] Ultrasound Report Signed Patient: YULI KNIGHT R#: [id number] : 1980Acct:[id number] Age/Sex: 43 / FADM Date: 10/26/23 Loc: MAMMO Attending Dr: Rick Deng D.O. Ordering Physician: Rick Deng D.O. Date of Service: 10/26/23 Procedure(s): US breast RT limited Accession Number(s): [id number] cc: Rick Deng D.O.; PAIGE HANSON Patient Name: YULI KNIGHT MR#: [id number] : 1980 Exam Date: 10/26/2023 Ordering Doctor: DR Rick Deng . RADIOLOGY REPORT PROCEDURE: MM DIAGNOSTIC MAMMO UNILAT RT, 10/26/2023, 12:00 US BREAST RT LIMITED, 10/26/2023, 13:11 COMPARISON: MM TOMOSYNTHESIS SCREENING BI, 10/11/2023. MG MAMM [id number] CHASIDY CAD, 09/21/2022. MG MAMM SCREEN 3D CHASIDY CAD, 10/29/2020. INDICATIONS: Follow Up Abnormal Mammogram R92.8 Calculator Name NCI Breast Cancer Risk Assessment Tool 5 Year Breast Cancer Risk 0.90% Lifetime Breast Cancer Risk 11.70% Personal Breast Cancer No Personal Ovarian Cancer No Treatments None Family Cancers None LOCATION: [facility] BREAST COMPOSITION: There are scattered areas of fibroglandulardensity. FINDINGS: DIAGNOSTIC CATEGORY 4--SUSPICIOUS FOR MALIGNANCY. FINDING DOES NOT EXHIBIT CLASSIC FINDINGS OF BREAST CANCER: RIGHT BREAST: Spot magnification views demonstrate persistence of a 1.1cm mass within the lower central breast approximately 6 o'clock. Ultrasound evaluation demonstrates a geographic shaped 1.6 x 0.6 x 0.6 cm hypoechoic structure with irregular lemus; complex cyst versus mass.Given its appearance on ultrasound and new appearance on mammography ultrasound-guided tissue sampling is recommended. RECOMMENDATIONS: ULTRASOUND-GUIDED CORE BIOPSY: RIGHT BREAST PLEASE NOTE: A NORMAL MAMMOGRAM DOES NOT EXCLUDE THE POSSIBILITY OFBREAST CANCER. A CLINICALLY SUSPICIOUS PALPABLE LUMP SHOULD BE BIOPSIED. Dictated by: Damian Wasserman M.D. on 10/26/2023 at 13:32 Approved by: Damian Wasserman M.D. on 10/26/2023 at 13:39 Dictated By: Damian Wasserman M.D. Signed By:10/26/23 1340 DD/ 1339 TD/TT: Dsp Engineer: us Rick Sowmya DO IM US PROCEDURES Final Result documented in this encounter Visit Diagnoses Not on filedocumented in this encounter Care Teams Fire Safety Manager Relationship Specialty Start Date End Date Paige Hanson MD [address] [place] [address] PCP - General 12/21/22 Kerri Bustillos NP [address] [place], [place] [id number] DWAIN - [employer] 03/04/24 documented as of this encounter
--- OUTSIDE RECORDS SUMMARY | 2024-12-26 06:37 | XMS_ITS | Clinical Summary ---
Author Organization [facility] Address [address] [facility] [place] [address] Care Team Providers Care Databases Computer Consultant Name Role Phone Lucy Hanson MD Primary Care Provider [phone] Allergies No known active allergies Medications Multiple Vitamin (multivitamin) capsule Take 1 capsule by mouth in the morning. Active betamethasone valerate (Valisone) 0.1 % creamIndication s:Poison vincenzo Apply topically 2 (two) times a day 15 g 2 4 Active phentermine (Adipex-P) 37.5 MG tabletIndicatio ns:Encounter for weight management Take 1 tablet (37.5 mg) by mouth in the morning. Take before meals. 30 tablet 4 Active phentermine (Adipex-P) 37.5 MG tabletIndicatio ns:Encounter for weight management Take 1 tablet (37.5 mg) by mouth in the morning. Take before meals. 30 tablet 4 Active phentermine (Adipex-P) 37.5 MG tabletIndicatio ns:Encounter for weight management Take 1 tablet (37.5 mg) by mouth in the morning. Take before meals. 90 tablet 4 Active metFORMIN (Glucophage) 500 MG tabletIndicatio ns:Weight gain,Encounter for weight management Take 1 tablet (500 mg) by mouth in the morning and 1 tablet (500 mg) in the evening. Take with meals. 60 tablet 11 4 Active Active Problems Problem Noted Date Diagnosed Date Abnormal weight gain 05/05/2023 Depression screening 05/05/2023 Excessive and frequent menstruation 05/05/2023 History of endometrial ablation 05/05/2023 Body mass index (BMI) 40.0-44.9, adult 3 Polycystic ovaries 05/05/2023 Encounters Date Type Department Care Team Description 12/13/2024 Abstract [facility] [address] [place] [phone] Patricia Allen MA 11/21/2024 Orders Only [facility] [address] [place] [address] Phylicia Pena MA 11/19/20[address] Telephone [facility] [address] [place] [phone] Nenita Duenas LPN 11/14/2024 Abstract [facility] [address] [place] [address] Mahi Deng DO 11/12/2024 10:00 AM EDT Office Visit [facility] [address] [place] [address] Mahi Deng DO Well woman exam with routine gynecological exam; Encounter for screening mammogram for malignant neoplasm of breast; Screen for colon cancer 11/12/2024 Clinisync Result Encounter [facility] External Department Unsolicited Mahi Deng DO 11/12/2024 Bamboo flowsheet [facility] [address] [place] [address] [phone] Mahi Deng DO 11/11/2024 Travel from Last 3 Months Immunizations Immunization Administration Dates Next Due Influenza Whole 04/09/2009 Family History Relation Name Status Comments Brother 1 Daughter Alive Father Alive Mother Alive Sister 2 Son Alive Social History Tobacco Use Types Packs/Day Years Used Date Smoking Tobacco: Former Cigarettes Smokeless Tobacco: Never Tobacco Cessation:Counseling Given: Not Answered Alcohol Use Standard Drinks/Week Comments Not Currently 4 (1 standard drink = 0.6 oz pur e alcohol) Caffine: 2 cups daily [id number] Health Literacy Answer Date Recor ded How often do you need to hav e someone help you when you read instructions, pamphlets, or other written material from your doctor or pharmacy? Never 01/12/2024 Social Connection and Isolat ion Panel [NHANES] Answer Date Recorded In a typical week, how many times do you talk on the phone with family, friends, or neighbors? More than three times a week 01/12/2024 How often do you get togethe r with friends or relatives? Once a week 01/12/2024 How often do you attend chur ch or advent services? 1 to 4 times per year 01/12/2024 Do you belong to any clubs o r organizations such as pentecostal groups, unions, fraternal or athletic groups, or school groups? No 01/12/2024 How often do you attend meet ings of the clubs or organizations you belong to? Patient declined 01/12/2024 Are you , , di vorced, , never , or living with a partner? 01/12/2024 AUDIT-C Answer Date Recorded Q1: How often do you have a drink containing alc ohol? Monthly or less 01/12/2024 Q2: How many drinks containi ng alcohol do you have on a typical day when you are drinking? 3 or 4 01/12/2024 Q3: How often do you have si x or more drinks on one occasion? Less than monthly 01/12/2024 Overall Financial Resource Strain (CARDIA) Answe r Date Recorded How hard is it for you to pa y for the very basics like food, housing, medical care, and heating? Not hard at all 01/12/2024 PHQ-2 Answer Date Recorded Patient Health Questionnaire-2 Score 0 05/17/2023 [facility] - [facility]ational Stress Questionnaire Answer Date Recorded Do you feel stress - tense, restless, nervous, or anxious, or unable to sleep at night because your mind is troubled all the time - these days? Not at all 01/12/2024 Exercise Vital Sign Answer Date Recorde d On average, how many days pe r week do you engage in moderate to strenuous exercise (like a brisk walk)? 4 days 01/12/2024 On average, how many minutes do you engage in exercise at this level? 60 min 01/12/2024 Hunger Vital Sign Answer Date Recorded Within the past 12 months, y ou worried that your food would run out before you got the money to buy more. Never true 01/12/20 24 Within the past 12 months, t he food you bought just didn't last and you didn't have money to get more. Never true 01/12/2024 PRAPARE - Transportation Answer Date Re corded In the past 12 months, has l ack of transportation kept you from medical appointments or from getting medications? No 01/01 In the past 12 months, has l ack of transportation kept you from meetings, work, or from getting things needed for daily living? No 01/12/2024 Housing Stability Vital Sign Answer Jb e Recorded In the last 12 months, was t here a time when you were not able to pay the mortgage or rent on time? No 01/12/2024 In the past 12 months, how m any times have you moved where you were living? 0 01/12/2024 At any time in the past 12 m [facility], were you homeless or living in a intermediate (including now)? No 01/12/2024 Comments No Sex and Gender Information Value Date Recorded Sex Assigned at Female 12/21/2022 1:25 PM EDT Legal Sex Female 6:43 PM EDT Gender Identity Not on file Sexual Orientation Asexual 12/21/2022 1: 25 PM EDT Last Filed Vital Signs Vital Sign Reading Time Taken Comments Blood Pressure 118/72 11/12/2024 10:18 AM EDT Pulse 76 01/13/2024 10:21 AM EDT Temperature 36.1 C (96.9 F) 01/13/2024 10:21 AM EDT Respiratory Rate - - Oxygen Saturation 93% 01/13/2024 10:21 AM EDT Inhaled Oxygen Concentration - - Weight 101 kg (222 lb) 11/12/2024 10:18 AM EDT Height 165.1 cm (5' 5 ) 01/13/2024 10:21 AM EDT Body Mass Index 36.94 01/13/2024 10:21 AM EDT Plan of Treatment Upcoming Encounters Date Type Department Care Team (Late st Contact Info) Description 11/18/2025 10:00 AM EDT Office Visit [facility] B[facility] OB [address] [place] [address] Mahi Deng, DO [address] [place], [place] [phone] Health Maintenance Due Date Last Done Comments CT Colonography 1979 Colonoscopy 1979 Colorectal Cancer Screening 1979 FIT-DNA 1979 FIT 1979 FOBT 1980 Sigmoidoscopy 1979 Influenza Vaccine (Season Ended) 2025 04/09/20 09 Mammogram 11/12/2025 11/12/2024, 04/2 10/2023, 10/11/2023, Additional history exists Cervical Cancer Screening 11/12/2029 HPV/Cotest 11/12/2029 Pap Smear 11/12/2029 11/12/2024, 05/0 01/2024, 09/21/2022 Procedures Procedure Name Priority Date/Time Associated Diagnosis Comments MM TOMOSYNTHESIS SCREENING BI 11/12/2024 3:35 PM EDT POCT URINALYSIS DIPSTICK Routine 11/12/2024 10:24 AM EDT Well woman exam with routine gynecological exam IGP,APTIMA HPV,AGE GDLN Routine 11/12/2024 10:09 AM EDT PAP SMEAR Routine 11/12/2024 12:00 AM EDT from Last 3 Months Results * MM TOMOSYNTHESIS SCREENING BI (11/12/2024 3:35 PM EDT) Anatomical Region Laterality Modality Other 11/12/2024 3:35 PM EDT Narrative 11/12/2024 3:36 [place] [address] Mammography Report Signed Patient: AGA KNIGHT MR#: [id number] : 1980 Acct:[id number] Age/Sex: 44 / F ADM Date: 11/12/24 Loc: MAMMO Attending Dr: Mahi Deng D.O. Ordering Physician: Mahi Deng D.O. Results: Date of Service: 11/12/24 Follow Up: Procedure(s): MM tomosynthesis screening BI Accession Number(s): [id number] cc: Mahi Deng D.O.; VALENTIN,LUCY Patient Name: AGA KNIGHT MR#: [id number] : 1980 Exam Date: 11/12/2024 Ordering Doctor: [...] Treatments None Family Cancers None LOCATION: [facility] BREAST COMPOSITION: There are scattered areas of [...] Signed By: 11/12/24 1536 DD/ 1535 TD/TT: Land Agent: Procedure Note Radiology, Radiologist, MD - 11/12/2024 [place] [address] Mammography Report Signed Patient: AGA KNIGHT JMR#: [id number] : 1980Acct:[id number] Age/Sex: 44 / FADM Date: 11/12/24 Loc: MAMMO Attending Dr: Mahi Deng D.O. Ordering Physician: Mahi Deng D.O.Results: Date of Service: 11/12/24Follow Up: Procedure(s): MM tomosynthesis screening BI Accession Number(s): [id number] cc: Mahi Deng D.O.; LUCY HANSON Patient Name: AGA KNIGHT MR#: [id number] : 1980 Exam Date: 11/12/2024 Ordering Doctor: [...] Treatments None Family Cancers None LOCATION: [facility] BREAST COMPOSITION: There are scattered areas of fibroglandulardensity. FINDINGS: DIAGNOSTIC CATEGORY 1--NEGATIVE. RIGHT BREAST: No significant suspicious finding. Previously biopsiedmass is once again noted. LEFT BREAST: No significant suspicious finding. RECOMMENDATIONS: ROUTINE MAMMOGRAM AND CLINICAL EVALUATION IN 12 MONTHS. PLEASE NOTE: Dictated by: Augusto Rodney DO on 11/12/2024 at 15:23 Approved by: Augusto Rodney DO on 11/12/2024 at 15:35 Dictated By: Augusto Rodney M.D. Signed By:11/12/24 1536 DD/ 1535 TD/TT: Land Agent: Mahi Deng DO [facility] Final Result * POCT urinalysis dipstick manually resulted (11/12/2024 10:24 AM EDT) Color, UA Yellow Clarity, UA Clear Glucose, UA Negative Negative - 2000(110) ++++ mg/dL Bilirubin, UA Negative Negative - 4(70) +++ mg/dL Ketones, UA Negative Negative - 160(16) ++++ mg/dL Spec Grav, UA 1.020 1 - 1.03 Blood, UA Negative Negative - 50 Petey/mcL pH, UA 6.0 5 - 9 Protein, UA Negative Negative - 2000(20) ++++ mg/dL Urobilinogen, UA 0.2 0.2 - 12 mg/dL Leukocytes, UA Negative Negative - 500+++ Bernie/mcL Nitrite, UA Negative Negative - Positive Urine 11/12/2024 10:2 4 AM EDT Mahi Deng DO POINT OF CARE TEST ENTER/EDIT OR DERABLES Final Result * IGP,APTIMA HPV,AGE GDLN (11/12/2024 10:09 AM EDT) AGE GDLN ACOG TESTING Note . [facility] Comment: TESTS RESULT FLAG UNITS REF RANGE LAB Clinician Provided Cytology Information Source.............Cervix;Endocervix No. of containers..01 ThinPrep Vial Age Fransicoo ACOG Viki... 30-65 01 FLAG LEGEND: L-Low Normal,H-High Normal,LL-Alert Low,HH-Alert High <-Panic Low,>-Panic High,A-Abnormal,AA-Critical Abnormal Performed at: 01 =[facility] [address] Joaquina Reynolds MD, IGP, APTIMA HPV, RFX 16/18,45 Note . [facility] Comment: TESTS RESULT FLAG UNITS REF RANGE LAB DIAGNOSIS: 02 NEGATIVE FOR INTRAEPITHELIAL LESION OR MALIGNANCY. Specimen adequacy: 02 Satisfactory for evaluation. No endocervical component is identified. Performed by: 02 Mae Gomez Banking Pin Adjuster ([facility]) . 02 Note: Note 02 The Pap smear is a screening test designed to aid in the detection of premalignant and malignant conditions of the uterine cervix. It is not a diagnostic procedure and should not be used as the sole means of detecting cervical cancer. Both false-positive and false-negative reports do occur. Test Methodology: Note 02 This liquid based ThinPrep(R) pap test was screened with the use of an image guided system. HPV Genotype Reflex Note 02 Criteria not met, HPV Genotype not performed. FLAG LEGEND: L-Low Normal,H-High Normal,LL-Alert Low,HH-Alert High <-Panic Low,>-Panic High,A-Abnormal,AA-Critical Abnormal Performed at: 02 [facility] [address] [place] [address] Joaquina Reynolds MD, HPV APTIMA Negative Negative [facility] Comment: This nucleic acid amplification test detects fourteen high- risk HPV types (16,18,31,33,35,39,45,51,52,56,58,59,66,68) without differentiation. Performed at: =G - [facility] [address], [place] [id number] Security Solutions Architect: Joaquina Reynolds MD, Phone: [phone] Performed at: [address] [place] Rios, ERASMO [id number] Security Solutions Architect: Joaquina Reynolds MD, Phone: [phone] 11/12/2024 10:0 9 AM EDT 11/12/2024 4:25 PM EDT Narrative [facility] - 11/15/2024 11:08 AM EDT BRUSH-SPATULA CERVIX ENDOCERVIX us Mahi Sowmya DO LAB BLOOD ORDERABLES Final Resul t [facility] * Pap Smear (11/12/2024 12:00 AM EDT) Swab Cervical swab / Unknown us Mahi Sowmya DO LAB CYTOLOGY ORDERABLES Final Re sult EXTERNAL LAB from Last 3 Months Insurance [facility] Care Teams Databases Computer Consultant Relationship Specialty Start Date End Date Lucy Hanson MD [address] [facility] [place] [address] PCP - General 12/21/22
--- OUTSIDE RECORDS SUMMARY | 2024-12-26 06:37 | XMS_ITS | Encounter Summary ---
Author Organization [facility] Address [address] [place] [address] Care Team Providers Care Sales Product Specialist Name Role Phone Lucy Snowden MD Primary Care Provider Kerri Bustillos FIELD RESEARCH ASSOCIATE Unavailable [phone] Encounter Details Date Type Department Care Team (Late st Contact Info) Description 11/29/2023 Abstract [facility] BCP OB [address] [facility] [address] Elly Lisa PA [address] [facility] [address] [place], [facility] Social History Tobacco Use Types Packs/Day Years [...] EDT Office Visit [facility] BCP [address] [facility] [place] [address] Rick Deng, [address] [place] [address] [place] [address] documented as of this encounter Visit Diagnoses Not on filedocumented in this encounter Care Teams Sales Product Specialist Relationship Specialty Start Date End Date Lucy Snowden MD [address] [place], [place] [phone] PCP - General 12/21/22 Kerri Bustillos NP [address] [place], [place] [address] PCP - Jovanny Commercial 03/04/24 documented as of this encounter
--- OUTSIDE RECORDS SUMMARY | 2024-12-26 06:37 | XMS_ITS | Encounter Summary ---
Author Organization [facility] Address [address] [place] [address] Care Team Providers Care Sand Mill Operator Facing Sand Name Role Phone Paige Hanson MD Primary Care Provider [phone] Kerri Bustillos MEDICAL STAFF DIRECTOR Unavailable [phone] Encounter Details Date Type Department Care Team (Late Contact Info) Description 11/04/2023 Clinisync Result Encounter [facility] External Department Unsolicited Provider, Generic External Data Social History Tobacco Use Types Packs/Day Years [...] 11/18/2025 10:00 AM EDT Office Visit [facility] [address] [place] [address] Rick Deng, DO [address] [facility] [place] [address] documented as of this encounter Procedures Procedure Name Priority Date/Time Associated Diagnosis Comments MAMMO POST BIOPSY RIGHT 11/04/2023 8:52 AM EDT documented in this encounter Results * MAMMO POST BIOPSY RIGHT (11/04/2023 8:52 AM EDT) Anatomical Region Laterality Modality Other 11/04/2023 8:52 AM EDT Narrative 11/04/2023 8:53 AM EDT [address] [address] Mammography Report Signed Patient: YULI KNIGHT MR#: [id number] : 1980 Acct:[id number] Age/Sex: 43 / F ADM Date: 11/04/23 Loc: US Attending Dr: Rick Deng D.O. Ordering Physician: Rick Deng D.O. Results: Date of Service: 11/04/23 Follow Up: Procedure(s): MM post biopsy RT Accession Number(s): [id number] cc: Rick Deng D.O.; PAIGE HANSON Patient Name: YULI KNIGHT MR#: [id number] : 1980 Exam Date: 11/04/2023 Ordering Doctor: DR Rick Deng . RADIOLOGY REPORT PROCEDURE: MM POST BIOPSY RT COMPARISON: MM DIAGNOSTIC MAMMO UNILAT RT, 10/26/2023. INDICATIONS: Abnormal Mammogram With Microcalcifications BREAST COMPOSITION: There are scattered areas of fibroglandular density. FINDINGS: Post-Procedure Mammogram for Marker Placement DIAGNOSTIC CATEGORY 4--SUSPICIOUS FOR MALIGNANCY. FINDING DOES NOT EXHIBIT CLASSIC FINDINGS OF BREAST CANCER: BIOPSY MARKER: A metallic marker has been placed in the targeted location within the 6 o'clock anterior right breast. BREAST FINDINGS: The ultrasound lesion is separate and distinct from the mammographic lesion which is more posterior on the current mammogram. Sampling of the mammographic abnormality by stereotactic biopsy is recommended RECOMMENDATIONS: STEREOTACTIC BREAST BIOPSY: RIGHT BREAST Dictated by: Avila Vieyra MD on 11/04/2023 at 08:50 Approved by: Avila Vieyra MD on 11/04/2023 at 08:52 Dictated By: Avila Vieyra M.D. Signed By: 11/04/2353 DD/ TD/TT: Bleach Analyst: Procedure Note Radiology, Radiologist, MD - 11/04/2023 [place] [address] Mammography Report Signed Patient: YULI KNIGHT JMR#: [id number] : 1980Acct:[id number] Age/Sex: 43 / FADM Date: 11/04/23 Loc: US Attending Dr: Rick Deng D.O. Ordering Physician: Rick Deng D.O.Results: Date of Service: 11/04/23Follow Up: Procedure(s): MM post biopsy RT Accession Number(s): [id number] cc: Rick Deng D.O.; PAIGE HANSON Patient Name: YULI KNIGHT MR#: [id number] : 1980 Exam Date: 11/04/2023 Ordering Doctor: DR Rick Deng . RADIOLOGY REPORT PROCEDURE: MM POST BIOPSY RT COMPARISON: MM DIAGNOSTIC MAMMO UNILAT RT, 10/26/2023. INDICATIONS: Abnormal Mammogram With Microcalcifications BREAST COMPOSITION: There are scattered areas of fibroglandulardensity. FINDINGS: Post-Procedure Mammogram for Marker Placement DIAGNOSTIC CATEGORY 4--SUSPICIOUS FOR MALIGNANCY. FINDING DOES NOTEXHIBIT CLASSIC FINDINGS OF BREAST CANCER: BIOPSY MARKER: A metallic marker has been placed in the targetedlocation within the 6 o'clock anterior right breast. BREAST FINDINGS: The ultrasound lesion is separate and distinct fromthe mammographic lesion which is more posterior on the current mammogram. Sampling of the mammographic abnormality by stereotactic biopsy isrecommended RECOMMENDATIONS: STEREOTACTIC BREAST BIOPSY: RIGHT BREAST Dictated by: Avila Vieyra MD on 11/04/2023 at 08:50 Approved by: Avila Vieyra MD on 11/04/2023 at 08:52 Dictated By: Avila Vieyra M.D. Signed By:11/04/23 0853 DD/ 0852 TD/TT: Bleach Analyst: us Generic External Data Provider [facility] Final Result documented in this encounter Visit Diagnoses Not on filedocumented in this encounter Care Teams Sand Mill Operator Facing Sand Relationship Specialty Start Date End Date Paige Hanson MD [address] [place], [place] [phone] PCP - General 12/21/22 Kerri Bustillos NP [address] [place] [address] PCP - Jovanny Lott 03/04/24 documented as of this encounter
--- OUTSIDE RECORDS SUMMARY | 2024-12-26 06:37 | XMS_ITS | Encounter Summary ---
Author Organization [facility] Address [address] [place] [address] Care Team Providers Care Oven Unloader Name Role Phone Lucy Snowden MD Primary Care Provider [phone] Encounter Details Date Type Department Care Team (Late st Contact Info) Description 11/21/2024 Orders Only [facility] BCP OB [address] [facility] [address] Phylicia [place], [place] [address] [facility] [place] [address] Social History Tobacco Use Types Packs/Day Years Used Date Smoking Tobacco: Former Cigarettes Smokeless Tobacco: Never Alcohol Use Standard Drinks/Week Comments Not Currently [...] often do you attend chur ch or yazdanism services? 1 to 4 times per year 01/12/2024 Do you belong to any clubs o r organizations such as restorationist groups, unions, fraternal or athletic groups, or [...] Recorded Patient Health Questionnaire-2 Score 0 05/17/2023 [facility] - Occupational Stress Questionnaire Answer Date Recorded [...] any time in the past 12 m [facility], were you homeless or living in a fpc (including now)? No 01/12/2024 Comments No Sex [...] EDT Office Visit [facility] BCP OB [address] [facility] [place] [address] Rick Deng DO [address] [facility] [place] [address] documented as of this encounter Procedures Procedure Name Priority Date/Time Associated Diagnosis Comments PAP SMEAR Routine 11/12/2024 12:00 AM EDT documented in this encounter Results * Pap Smear (11/12/2024 12:00 AM EDT) Swab Cervical swab / Unknown us Rick Deng DO LAB CYTOLOGY ORDERABLES Final Re sult EXTERNAL LAB documented in this encounter Visit Diagnoses Not on filedocumented in this encounter Care Teams Oven Unloader Relationship Specialty Start Date End Date Lucy Snowden MD [address] [place] [address] PCP - General 12/21/22 documented as of this encounter
--- OUTSIDE RECORDS SUMMARY | 2024-12-26 06:37 | XMS_ITS | Encounter Summary ---
Author Organization [facility] Address [address] [place] [address] Care Team Providers Care Box Blank Machine Operator Helper Name Role Phone Lucy Snowden MD Primary Care Provider [phone] Puja Pathak NURSE STAFF Unavailable [phone] Lucy Snowden MD Unavailable [phone] Kerri Bustillos NURSE STAFF Unavailable [phone] Encounter Details Date Type Department Care Team (Late Contact Info) Description 01/18/2023 Abstract [facility] BCP OB [address] [facility] [place] [address] Elly Lisa PA [address] [facility] [address] [place], [place] [id number] Social History Tobacco Use Types Packs/Day Years Used Date Smoking Tobacco: Former Cigarettes Tobacco Cessation:Counseling Given: Not Answered Alcohol Use Standard Drinks/Week Comments Yes 0 (1 standard drink = 0.6 oz pure alcohol) 3or 4 drinks , monthly or less ; 6 or more on one occasiona /weekly. Caffeine: 1-2 cups/day coffee Comments No Sex and Gender Information Value [...] suspected to have Coronavirus/COVID-19? No / Unsure 01/18/2023 10:23 AM EDT documented as of this encounter Plan of Treatment Upcoming Encounters Date Type Department Care Team (Late st Contact Info) Description 11/18/2025 10:00 AM EDT Office Visit [facility] BCP OB [address] [facility] [place] [address] Rick Deng, DO [address] [place] [address] [address] [place], [place] [phone] documented as of this encounter Visit Diagnoses Not on filedocumented in this encounter Care Teams Box Blank Machine Operator Helper Relationship Specialty Start Date End Date Lucy Snowden MD [address] [place] [address] PCP - General 12/21/22 Puja Pathak NP [address] [place] [address] PCP - [place] [employer] 01/01/2307/03 Lucy Snowden MD [address] [place] [address] PCP - [place] [employer] 07/04/23 Kerri Bustillos NP [address] [place] [address] PCP - [place] [employer] 03/04/24 documented as of this encounter
--- OUTSIDE RECORDS SUMMARY | 2024-12-26 06:37 | XMS_ITS | Encounter Summary ---
Author Organization [facility] Address [address] [place] [address] Care Team Providers Care Web Marketing Specialist Name Role Phone Lucy Snowden MD Primary Care Provider [phone] Puja Pathak FIELD TRAINING MANAGER Unavailable [phone] Lucy Snowden MD Unavailable [phone] Kerri Bustillos FIELD TRAINING MANAGER Unavailable Reason for Visit * Reason Comments Med Refill Encounter Details Date Type Department Care Team (Late st Contact Info) Description 01/22/2023 Refill [facility] [address] [facility] [place] [place] [address] Elly Lisa PA [address] [facility] [address] [place], [id number] Weight loss Social History Tobacco Use Types Packs/Day Years Used Date Smoking Tobacco: Former Cigarettes Alcohol Use Standard Drinks/Week Comments Yes 0 [...] AM EDT documented as of this encounter Miscellaneous Notes * Telephone Encounter - Sarah Maldonado LPN - 01/28/2023 12:18 PM EDT Approving, but needs appt for additional refills. documented in this encounter Plan of Treatment Upcoming Encounters Date Type Department Care Team (Late st Contact Info) Description 11/18/2025 10:00 AM EDT Office Visit [facility] [address] [facility] [place] [address] Rick Deng, DO [address] [facility] [address] [place], [place] [address] documented as of this encounter Visit Diagnoses Diagnosis Weight loss Loss of weight documented in this encounter Care Teams Web Marketing Specialist Relationship Specialty Start Date End Date Lucy Snowden MD [address] [place] [address] PCP - General 12/21/22 Puja Pathak NP [address] [place] [address] PCP - [place] Commercial 01/01/2307/03 Lucy Snowden MD [address] [place] [address] PCP - [place] [employer] 07/04/23 Kerri Bustillos NP [address] [place] [address] PCP - [place] [employer] 03/04/24 documented as of this encounter
--- OUTSIDE RECORDS SUMMARY | 2024-12-26 06:37 | XMS_ITS | Encounter Summary ---
Author Organization [facility] Address [address] [place] [address] Care Team Providers Care Singeing Torch Operator Name Role Phone Paige Hanson MD Primary Care Provider [phone] Kerri Bustillos METAL ENGINEERING PROCESS WORKER Unavailable [phone] Encounter Details Date Type Department Care Team [...] 11/18/2025 10:00 AM EDT Office Visit [facility] [address] [place] [address] Mahi Deng, DO [address] [facility] [place] [address] documented as of this encounter Procedures Procedure Name Priority Date/Time Associated Diagnosis Comments US VAC ASST BX BREAST RT W CLIP 11/04/2023 8:32 AM EDT documented in this encounter Results * US VAC ASST BX BREAST RT W CLIP (11/04/2023 8:32 AM EDT) Anatomical Region Laterality Modality Radiographic Christina ging 11/04/2023 8:32 AM EDT Narrative 11/04/2023 8:35 AM EDT [address] [address] Ultrasound Report Signed Patient: YULI KNIGHT MR#: [id number] : 1980 Acct:[id number] Age/Sex: 43 / F ADM Date: 11/04/23 Loc: US Attending Dr: Mahi Deng D.O. Ordering Physician: Mahi Deng D.O. Date of Service: 11/04/23 Procedure(s): US breast vac bx w/ clip RT Accession Number(s): [id number] cc: Mahi Deng D.O.; PAIGE HANSON [address] [id number] Patient Name: YULI KNIGHT MRN: [id number] date: 1980 Sex: F Assigned Patient Location: US Current Patient Location: US Accession/Order Number: [id number] Exam Date: 11/04/2023 07:50 Report Date: 11/04/2023 08:32 At the request of: MAHI DENG Procedure: US breast vac bx w/ clip RT EXAMINATION: US breast vac bx w/ clip RT HISTORY: Abnormal Mammogram With Microcalcifications COMPARISON: No relevant comparison available. TECHNIQUE: After obtaining informed consent, an ultrasound-guided biopsy was performed in the usual sterile manner. FINDINGS: IMAGING: Ultrasound BIOPSY NEEDLE: 13-gauge vacuum-assisted mammotome: coaxial core SPECIMEN TYPE, #, LOCATION: 5 samples, 1.1 cm right breast mass MEDICATION: 2 cc 1% buffered lidocaine without epinephrine superficial. 6 cc 1% buffered lidocaine with epinephrine deep COMPLICATIONS: None. LABORATORY: Pathology pending OTHER: Negative. US/US breast vac bx w/ clip RT IMPRESSION: Uneventful ultrasound guided right breast core biopsy. The patient was instructed to obtain follow up care and biopsy results from the referring physician. Electronically authenticated by: DAISY ARMIJO Date: 11/04/2023 08:32 Dictated By: Daisy Armijo M.D. Signed By: 11/04/2335 DD/ 1 TD/TT: Hr Payroll Coordinator: Procedure Note Radiology, Radiologist, - 11/04/2023 [place] [address] Ultrasound Report Signed Patient: YULI KNIGHT R#: [id number] : 1980Acct:[id number] Age/Sex: 43 / FADM Date: 11/04/23 Loc: US Attending Dr: Mahi Deng D.O. Ordering Physician: Mahi Deng D.O. Date of Service: 11/04/23 Procedure(s): US breast vac bx w/ clip RT Accession Number(s): [id number] cc: Mahi Deng D.O.; PAIGE HANSON [address] [place] [id number] Patient Name: YULI KNIGHT MRN: [id number] date: 1980 Sex: F Assigned Patient Location: Current Patient Location: US Accession/Order Number: [id number] Exam Date: 11/04/2023 07:50 Report Date: 11/04/2023 08:32 At the request of: MAHI DENG Procedure: US breast vac bx w/ clip RT EXAMINATION: US breast vac bx w/ clip RT HISTORY: Abnormal Mammogram With Microcalcifications COMPARISON: No relevant comparison available. TECHNIQUE: After obtaining informed consent, an ultrasound-guided biopsywas performed in the usual sterile manner. FINDINGS: IMAGING: Ultrasound BIOPSY NEEDLE: 13-gauge vacuum-assisted mammotome: coaxial core SPECIMEN TYPE, #, LOCATION: 5 samples, 1.1 cm right breast mass MEDICATION: 2 cc 1% buffered lidocaine without epinephrine superficial. 6cc 1% buffered lidocaine with epinephrine deep COMPLICATIONS: None. LABORATORY: Pathology pending OTHER: Negative. US/US breast vac bx w/ clip RT IMPRESSION: Uneventful ultrasound guided right breast core biopsy. The patient was instructed to obtain follow up care and biopsy results from the referring physician. Electronically authenticated by: DAISY ARMIJO Date: 11/04/2023 08:32 Dictated By: Daisy Armijo M.D. Signed By:11/04/2335 DD/ 1 TD/TT: Hr Payroll Coordinator: us Generic External Data Provider IMG XR PROCEDURES Final Result documented in this encounter Visit Diagnoses Not on filedocumented in this encounter Care Teams Singeing Torch Operator Relationship Specialty Start Date End Date Paige Hanson MD [address] [place] [address] PCP - General 12/21/22 Kerri Bustillos NP [address] [place], [place] [id number] PCP - [place] [employer] 03/04/24 documented as of this encounter
--- OUTSIDE RECORDS SUMMARY | 2024-12-26 06:37 | XMS_ITS | Encounter Summary ---
Author Organization [facility] Address [address] [place] [address] Care Team Providers Care Sr. Payroll Manager Name Role Phone Lucy Snowden MD Primary Care Provider [phone] Encounter Details Date Type Department Care Team (Late st Contact Info) Description 11/14/2024 Abstract [facility] OB [address] [place] [address] Rick Deng, DO [address] [facility] [address] [place], [place] [address] Social History Tobacco Use Types Packs/Day Years [...] often do you attend chur ch or hindu services? 1 to 4 times per year 01/12/2024 Do you belong to any clubs o r organizations such as oriental orthodox groups, unions, fraternal or athletic groups, or [...] Recorded Patient Health Questionnaire-2 Score 0 05/17/2023 [facility] - Occupational Stress [...] time in the past 12 m [facility], were you homeless or living in a snf (including now)? No 01/12/2024 Comments No Sex [...] EDT Office Visit [facility] OB [address] [facility] [place] [address] Rick Deng, [address] [facility] [place] [address] documented as of this encounter Visit Diagnoses Not on filedocumented in this encounter Care Teams Sr. Payroll Manager Relationship Specialty Start Date End Date Lucy Snowden MD [address] [place] [address] PCP - General 12/21/22 documented as of this encounter
--- OUTSIDE RECORDS SUMMARY | 2024-12-26 06:37 | XMS_ITS | Encounter Summary ---
Author Organization [facility] Address [address] [place] [address] Care Team Providers Care Dicer Machine Operator Name Role Phone Lucy Snowden MD Primary Care Provider [phone] Kerri Bustillos FLATWARE MAKER Unavailable Encounter Details Date Type Department Care Team (Late st Contact Info) Description 11/11/2023 Abstract [facility] OB [address] [facility] [place] [address] Elly Lisa PA [address] [facility] [address] [place], [facility]11 Social History Tobacco Use Types Packs/Day Years [...] EDT Office Visit [facility] OB [address] [facility] [place] [address] Rick Deng, [address] [place] [address] [place] [address] documented as of this encounter Visit Diagnoses Not on filedocumented in this encounter Care Teams Dicer Machine Operator Relationship Specialty Start Date End Date Lucy Snowden MD [address] [place], [place] [id number] PCP - General 12/21/22 Kerri Bustillos NP [address] [place], [place] [address] PCP - [place] [employer] 03/04/24 documented as of this encounter
--- OUTSIDE RECORDS SUMMARY | 2024-12-26 06:37 | XMS_ITS | Encounter Summary ---
Author Organization [facility] Address [address] [place] [address] Care Team Providers Care Game Engineer Name Role Phone Lucy Snowden MD Primary Care Provider [phone] Kerri Bustillos CAR WASH MANAGER Unavailable [phone] Encounter Details Date Type Department Care Team (Late st Contact Info) Description 11/28/2023 Abstract [facility] [address] [place] [address] Lucy Snowden MD [address] [place] [address] Social History Tobacco Use Types [...] EDT Office Visit [facility] OB [address] [facility] [place] [address] Rick Deng, [address] [place] [address] [place] [address] documented as of this encounter Visit Diagnoses Not on filedocumented in this encounter Care Teams Game Engineer Relationship Specialty Start Date End Date Lucy Snowden MD [address] [place], [place] [address] PCP - General 12/21/22 Kerri Bustillos NP [address] [place], [place] [address] PCP - Jovanny Lott 03/04/24 documented as of this encounter
--- OUTSIDE RECORDS SUMMARY | 2024-12-26 06:37 | XMS_ITS | Encounter Summary ---
Author Organization [facility] Address [address] [place] [address] Care Team Providers Care Cold Rolling Supervisor Name Role Phone Paige Hanson MD Primary Care Provider [phone] Kerri Bustillos HOTEL MANAGER Unavailable [phone] Encounter Details Date Type Department Care Team (Late Contact Info) Description 10/26/2023 Clinisync Result Encounter [facility] External Department Unsolicited Rick Deng, DO [address] [facility] [place] [address] Social [...] EDT Office Visit [facility] OB [address] [facility] [place] [address] Rick Deng DO [address] [facility] [place] [address] documented as of this encounter Procedures Procedure Name Priority Date/Time Associated Diagnosis Comments BI MAMMOGRAM DIAGNOSTIC RIGHT 10/26/2023 1:39 PM EDT documented in this encounter Results * Right diagnostic mammogram (10/26/2023 1:39 PM EDT) Anatomical Region Laterality Modality Breast Right Mammography 10/26/2023 1:39 PM EDT Narrative 10/26/2023 1:40 PM EDT [address] [address] Mammography Report Signed Patient: YULI KNIGHT MR#: [id number] : 1980 Acct:[id number] Age/Sex: 43 / F ADM Date: 10/26/23 Loc: MAMMO Attending Dr: Rick Deng D.O. Ordering Physician: Rick Deng D.O. Results: Date of Service: 10/26/23 Follow Up: Procedure(s): MM diagnostic mammo unilat RT Accession Number(s): [id number] cc: Rick Deng D.O.; PAIGE HANSON Patient Name: YULI KNIGHT MR#: [id number] : 1980 Exam Date: 10/26/2023 Ordering Doctor: [...] Treatments None Family Cancers None LOCATION: [facility] BREAST COMPOSITION: There are scattered areas [...] PALPABLE LUMP SHOULD BE BIOPSIED. Dictated by: Damain Wasserman M.D. on 10/26/2023 at 13:32 Approved by: Damian Wasserman M.D. on 10/26/2023 at 13:39 Dictated By: Damian Wasserman M.D. Signed By: 10/26/23 1340 DD/ 1339 TD/TT: Softball Player: Procedure Note Radiology, Radiologist, MD - 10/26/2023 [place] [address] Mammography Report Signed Patient: YULI KNIGHT R#: [id number] : 1980Acct:[id number] Age/Sex: 43 / FADM Date: 10/26/23 Loc: MAMMO Attending Dr: Rick Deng D.O. Ordering Physician: Rick Deng D.O.Results: Date of Service: 10/26/23Follow Up: Procedure(s): MM diagnostic mammo unilat RT Accession Number(s): [id number] cc: Rick Deng D.O.; PAIGE HANSON Patient Name: YULI KNIGHT MR#: [id number] : 1980 Exam Date: 10/26/2023 Ordering Doctor: DR Rick Deng . RADIOLOGY REPORT PROCEDURE: MM DIAGNOSTIC MAMMO UNILAT RT, 10/26/2023, 12:00 US BREAST RT LIMITED, 10/26/2023, 13:11 COMPARISON: MM TOMOSYNTHESIS SCREENING BI, 10/11/2023. MG MAMM [id number] CHASIDY CAD, 09/21/2022. MG MAMM SCREEN 3D CHASIDY CAD, 10/29/2020. INDICATIONS: Follow Up Abnormal Mammogram R92.8 Calculator Name NCI Breast Cancer Risk Assessment Tool 5 Year Breast Cancer Risk 0.90% Lifetime Breast Cancer Risk 11.70% Personal Breast Cancer No Personal Ovarian Cancer No Treatments None Family Cancers None LOCATION: [facility] BREAST COMPOSITION: There are scattered areas [...] M.D. Signed By:10/26/23 1340 DD/ 1339 TD/TT: Softball Player: us Rick Deng DO IMG BI PROCEDURES Final Result documented in this encounter Visit Diagnoses Not on filedocumented in this encounter Care Teams Cold Rolling Supervisor Relationship Specialty Start Date End Date Paige Hanson MD [address] [place] [address] PCP - General 12/21/22 Kerri Bustillos NP [address] [place] [address] PCP - [place] [employer] 03/04/24 documented as of this encounter
--- OUTSIDE RECORDS SUMMARY | 2024-12-26 06:37 | XMS_ITS | Encounter Summary ---
Author Organization [facility] Address [address] [facility] [place] [address] Care Team Providers Care Director Market Intelligence Name Role Phone Lucy Snowden MD Primary Care Provider [phone] Kerri Bustillos INSEAMER Unavailable [phone] Encounter Details Date Type Department Care Team (Late st Contact Info) Description 11/15/2023 Orders Only [facility] OB [address] [place] [address] Sarah Maldonado LPN [address] [facility] [id number] Social History Tobacco Use Types Packs/Day Years [...] EDT Office Visit [facility] BCP OB [address] [facility] [place] [address] Rick Deng [address] [place] [address] documented as of this encounter Procedures Procedure Name Priority Date/Time Associated Diagnosis Comments PAP SMEAR Routine 11/08/2023 12:00 AM EDT documented in this encounter Results * Pap Smear (11/08/2023 12:00 AM EDT) Swab Cervical swab / Unknown Sowmya Nurse [facility] Ob LAB CYTOLOGY ORDERABLES Final Result EXTERNAL LAB documented in this encounter Visit Diagnoses Not on filedocumented in this encounter Care Teams Director Market Intelligence Relationship Specialty Start Date End Date Lucy Snowden MD [address] [place] [address] PCP - General 12/21/22 Kerri Bustillos NP [address] [place] [address] PCP - [place] Commercial 03/04/24 documented as of this encounter
--- OUTSIDE RECORDS SUMMARY | 2024-12-26 06:37 | XMS_ITS | Encounter Summary ---
Author Organization [facility] Address [address] [place] [address] Care Team Providers Care Agile Project Manager Name Role Phone Lucy Snowden MD Primary Care Provider [phone] Encounter Details Date Type Department Care Team (Late st Contact Info) Description 12/13/2024 Abstract [facility] OB [address] [facility] [place] [address] Patricia Allen MA Social History Tobacco Use Types Packs/Day Years [...] often do you attend chur ch or baptism services? 1 to 4 times per year 01/12/2024 Do you belong to any clubs o r organizations such as pentecostalism groups, unions, fraternal or athletic groups, or [...] Recorded Patient Health Questionnaire-2 Score 0 05/17/2023 [facility] - Occupational Stress Questionnaire Answer Date Recorded [...] any time in the past 12 m onths, were you homeless or living in a halfway (including now)? No 01/12/2024 Comments No Sex [...] EDT Office Visit [facility] OB [address] [facility] [place] [address] Rick Deng, DO [address] [facility] [place] [address] documented as of this encounter Visit Diagnoses Not on filedocumented in this encounter Care Teams Agile Project Manager Relationship Specialty Start Date End Date Lucy Snowden MD [address] [place] [address] PCP - General 12/21/22 documented as of this encounter
--- OUTSIDE RECORDS SUMMARY | 2024-12-26 06:37 | XMS_ITS | Encounter Summary ---
Author Organization [facility] Address [address] [facility] [place] [address] Care Team Providers Care Dairy Machine Operator Farmworker Name Role Phone Lucy Snowden MD Primary Care Provider [phone] Kerri Bustillos THIRD MILLER Unavailable [phone] Encounter Details Date Type Department Care Team (Late st Contact Info) Description 11/18/2023 Abstract [facility] OB [address] [place] [address] Sarah Maldonado LPN [address] [place], [place] [address] Social History Tobacco Use Types Packs/Day Years [...] [facility] [place] [address] Rick Deng, [address] [place] [address] [place] [address] documented as of this encounter Visit Diagnoses Not on filedocumented in this encounter Care Teams Dairy Machine Operator Farmworker Relationship Specialty Start Date End Date Lucy Snowden MD [address] [place] [address] PCP - General 12/21/22 Kerri Bustillos NP [address] [place] [address] PCP - Jovanny Commercial 03/04/24 documented as of this encounter
[2024-12-26 06:45] VITALS: BP 132/78; PULSE 75; TEMP 36.1; O2SAT 99
[2024-12-26 07:02] LABS: HCG Qualitative NEGATIVE (NEGATIVE); Internal Control Within Normal Limits
[2024-12-26] MEDS: 0.9 % SODIUM CHLORIDE 500 ML 50 ML IV (07:06)
[2024-12-26 07:46] VITALS: BP 101/62; PULSE 89; TEMP 36.4; O2SAT 98
[2024-12-26 08:01] VITALS: BP 111/79; PULSE 81; O2SAT 100
[2024-12-26 08:16] VITALS: BP 102/79; PULSE 77; TEMP 36.4; O2SAT 100
== END 2024-12-26 08:16 | disposition home or self-care (01) ==
LOC: SURGOUT 06:35
PROVIDERS: Anesthesiology; PCP Family Medicine; Visit Provider Surgery
PROC: (CPT 00812; principal; 2024-12-26 07:30)
DX: Z12.11 Encounter for screening for malignant neoplasm of colon (principal); E28.2 Polycystic ovarian syndrome
CPT/HCPCS: 00812; 45378; 36415; 84703; J2704